=== PATIENT | male | born 1935 | race African-American/Black ===

== ENCOUNTER 2017-02-02 11:35 | Inpatient (IN) | payer MEDICARE, MEDICAID ==
[~2017-02-02] VITALS: Ht 175.3 cm; Wt 93.0 kg
[~2017-02-02 11:35] MED LIST: ACET-3161 PO; ALBU6.7H IH; FAMO-135; IBUP100T53; PIOG30TA10 PO; POTA10TA15 PO; PYRI60TA10 PO; RAMI2.5C10 PO; SITA1TAB4 PO; TAMS-11 PO; ZOLP10TA6 PO; [UNRECOGNIZED DRUG - CODE]
[2017-02-02] MEDS ORDERED: SODIUM CHLORIDE 0.9% 1,000 ML IV ONE (14:25)
[2017-02-02] MEDS ORDERED: ONDANSETRON HCL 4MG/2ML VIAL IV STA (14:25)
[2017-02-02] MEDS ORDERED: PYRIDOSTIGMINE BROMIDE 60MG TABLET PO ONE (14:30)
[2017-02-02 15:00] LABS: BASOPHILS % 0.8 % (0.0-2.0); EOSINOPHILS % 1.6 % (0.0-5.0); HEMOGLOBIN. 12.5 g/dL (14.0-18.0); LYMPHOCYTES % 24.6 % (20.0-50.0); MEAN CORPUSCULAR HEMOGLOBIN 29.4 pg (28.0-32.0); MEAN CORPUSCULAR VOLUME 88.9 fL (80.0-94.0); MEAN PLATELET VOLUME 7.9 fl (7.4-10.4); MONOCYTES % 14.3 % (2.0-8.0); NEUTROPHILS % 58.7 % (40.0-76.0); PLATELET 138 x1000/uL (130-400); RED BLOOD CELL COUNT 4.27 mill/uL (4.7-6.1)
[2017-02-02 15:06] LABS: INR 1.1; PROTHROMBIN TIME 11.3 sec (9.4-11.6)
[2017-02-02 15:15] LABS: CARBON DIOXIDE 28 mEq/L (21-32); CHLORIDE 106 mEq/L (98-107); TROPONIN I 0.04 ng/mL (0.00-0.04)
[2017-02-02] MEDS ORDERED: LEVOFLOXACIN 750MG PREMIX 150 ML IV ONE (16:15)
[2017-02-02] MEDS ORDERED: METRONIDAZOLE 500 MG PREMIX 100 ML IV ONE (16:15)
[2017-02-02 19:42] LABS: CLARITY URINE CLEAR (CLEAR); COLOR URINE DARK YELLOW (YELLOW); GLUCOSE URINE NEGATIVE (NEGATIVE); KETONES URINE 1+ (NEGATIVE); LEUKOCYTE ESTERASE URINE TRACE (NEGATIVE); NITRITE URINE NEGATIVE (NEGATIVE); OCCULT BLOOD URINE NEGATIVE (NEGATIVE); PROTEIN URINE TRACE (NEGATIVE); SPECIFIC GRAVITY URINE 1.025 (1.005-1.030)
[2017-02-03] VITALS: BP 151/69
[2017-02-03] MEDS ORDERED: MAGNESIUM/ALUMINUM HYDROXIDE/SIMETHICONE 30ML UDC PO PRN (00:45)
[2017-02-03] MEDS ORDERED: DIPHENHYDRAMINE 50MG/ML VIAL IV PRN (00:45)
[2017-02-03] MEDS ORDERED: DEXTROSE 50% WATER 50ML SYRINGE IV PRN (00:45)
[2017-02-03] MEDS ORDERED: ONDANSETRON HCL 4MG/2ML VIAL IV PRN (00:45)
[2017-02-03] MEDS ORDERED: IPRATROPIUM/ALBUTEROL 0.5-3(2.5)MG/3ML NEB INH PRN (00:45)
[2017-02-03] MEDS ORDERED: ACETAMINOPHEN 325MG TABLET PO PRN (00:45)
[2017-02-03] MEDS ORDERED: GUAIFENESIN 200MG/10ML SUGAR FREE UDC PO PRN (00:45)
[2017-02-03] MEDS ORDERED: CLONIDINE 0.1MG TABLET PO PRN (00:45)
[2017-02-03] MEDS ORDERED: DEXT 5%/0.45% NACL 1000ML 1,000 ML IV SCH (01:30)
[2017-02-03 04:00] VITALS: BP 129/45
[2017-02-03] MEDS: BLOOD SUGAR DIAGNOSTIC STRIP TEST SCH ×4 (07:34→21:43)
[2017-02-03] MEDS: INSULIN LISPRO 100 UNITS/ML SUBCUT SCH ×4 (07:34→21:00)
[2017-02-03 08:24] VITALS: BP 144/61
[2017-02-03] MEDS: PYRIDOSTIGMINE BROMIDE 60MG TABLET PO SCH ×4 (09:18→21:43)
[2017-02-03] MEDS: ENOXAPARIN 40MG/0.4ML SYR SUBCUT SCH (09:18)
[2017-02-03] MEDS: FAMOTIDINE 20MG/2ML VIAL IV SCH ×2 (09:18→21:43)
[2017-02-03] MEDS: PIOGLITAZONE 30MG TABLET PO SCH (09:19)
[2017-02-03] MEDS: TAMSULOSIN HCL 0.4MG SR CAPSULE PO SCH (09:19)
[2017-02-03 13:10] VITALS: BP 150/72
[2017-02-03 17:24] VITALS: BP 130/70
[2017-02-03] MEDS: SODIUM CHLORIDE 0.9% 1,000 ML IV SCH (18:50)
[2017-02-03 20:00] VITALS: BP 103/70
[2017-02-04] VITALS: BP 105/68
[2017-02-04 04:00] VITALS: BP 130/74
[2017-02-04 07:17] LABS: CARBON DIOXIDE 26 mEq/L (21-32); CHLORIDE 106 mEq/L (98-107)
[2017-02-04 07:27] LABS: HEMATOCRIT. 36.4 % (42.0-52.0); HEMOGLOBIN. 12.3 g/dL (14.0-18.0); MEAN CORPUSCULAR HEMOGLOBIN 29.5 pg (28.0-32.0); MEAN CORPUSCULAR VOLUME 87.4 fL (80.0-94.0); MEAN PLATELET VOLUME 8.6 fl (7.4-10.4); PLATELET 133 x1000/uL (130-400); RED BLOOD CELL COUNT 4.17 mill/uL (4.7-6.1); RED CELL DISTRIBUTION WIDTH 14.6 % (11.6-14.6)
[2017-02-04 08:00] VITALS: BP 133/67
[2017-02-04] MEDS: BLOOD SUGAR DIAGNOSTIC STRIP TEST SCH ×2 (08:05→12:48)
[2017-02-04] MEDS: INSULIN LISPRO 100 UNITS/ML SUBCUT SCH ×2 (08:10→12:32)
[2017-02-04] MEDS: PYRIDOSTIGMINE BROMIDE 60MG TABLET PO SCH ×2 (08:35→12:29)
[2017-02-04] MEDS: SODIUM CHLORIDE 0.9% 1,000 ML IV SCH (08:35)
[2017-02-04] MEDS: PIOGLITAZONE 30MG TABLET PO SCH (08:35)
[2017-02-04] MEDS: ENOXAPARIN 40MG/0.4ML SYR SUBCUT SCH (08:36)
[2017-02-04] MEDS: FAMOTIDINE 20MG/2ML VIAL IV SCH (08:36)
[2017-02-04] MEDS: TAMSULOSIN HCL 0.4MG SR CAPSULE PO SCH (08:36)
[2017-02-04 12:00] VITALS: BP 118/61
[2017-02-04 16:54] LABS: PLATELET ESTIMATE NORMAL
== END 2017-02-04 14:00 | disposition home or self-care (01) | DRG 438 ==
LOC: ER 15:01 → EDBEDREQ 16:27 → EDBEDREQTM 16:27 → ENRESERV 22:13 → 7WST 02-03 00:10
PROVIDERS: ADMIT Internal Medicine; ATTEND Internal Medicine
DX: K85.90 Acute pancreatitis without necrosis or infection, unspecified (principal); G93.41 Metabolic encephalopathy; G70.01 Myasthenia gravis with (acute) exacerbation; E11.9 Type 2 diabetes mellitus without complications; J44.9 Chronic obstructive pulmonary disease, unspecified; K52.9 Noninfective gastroenteritis and colitis, unspecified; E78.00 Pure hypercholesterolemia, unspecified; E78.5 Hyperlipidemia, unspecified; I10 Essential (primary) hypertension; E66.9 Obesity, unspecified; T50.995A Adverse effect of other drugs, medicaments and biological substances, initial encounter; Z79.84 Long term (current) use of oral hypoglycemic drugs; Z82.49 Family history of ischemic heart disease and other diseases of the circulatory system; Z83.3 Family history of diabetes mellitus; Z88.0 Allergy status to penicillin; Z90.49 Acquired absence of other specified parts of digestive tract; Z79.899 Other long term (current) drug therapy; Z98.42 Cataract extraction status, left eye; Z98.41 Cataract extraction status, right eye; Z68.30 Body mass index [BMI] 30.0-30.9, adult
CPT/HCPCS: 36415; 71010; 74176; 80048; 80053; 81001; 82962; 83605; 83690; 83735; 83880; 84484; 85025; 85610; 87040; 87086; 93005; 96361; 96365; 96366; 96375; 99285; J1650; J1815; J1956; J2405; J3490; J7030

== ENCOUNTER 2018-11-15 18:48 | Inpatient (IN) | payer MEDICARE, MEDICAID ==
[~2018-11-15] VITALS: Ht 175.3 cm; Wt 105.7 kg
[~2018-11-15 18:48] MED LIST changes: -ACET-3161 PO; -ALBU6.7H IH; +ATOR20TA PO; +AZAT50TA24 PO; -FAMO-135; -IBUP100T53; +LISI10TA5 PO; +OMEP40CA34 PO; -POTA10TA15 PO; -SITA1TAB4 PO; -ZOLP10TA6 PO; -[UNRECOGNIZED DRUG - CODE]
[2018-11-15] MEDS ORDERED: SODIUM CHLORIDE 0.9% 1,000 ML IV ONE (22:11)
[2018-11-15] MEDS ORDERED: ONDANSETRON HCL 4MG/2ML INJ IV STA (22:11)
[2018-11-15 22:41] LABS: BASOPHILS % 0.8 % (0.0-2.0); EOSINOPHILS % 0.3 % (0.0-5.0); HEMATOCRIT. 38.7 % (42.0-52.0); HEMOGLOBIN. 12.6 g/dL (14.0-18.0); LYMPHOCYTES % 11.6 % (20.0-50.0); MEAN CORPUSCULAR HEMOGLOBIN 27.8 pg (28.0-32.0); MEAN CORPUSCULAR VOLUME 85.2 fL (80.0-94.0); MONOCYTES % 6.3 % (2.0-8.0); PLATELET 151 x1000/uL (130-400); RED BLOOD CELL COUNT 4.54 mill/uL (4.7-6.1); RED CELL DISTRIBUTION WIDTH 16.8 % (11.6-14.6)
[2018-11-15 22:44] LABS: CHLORIDE 105 mEq/L (98-107)
[2018-11-15 22:46] LABS: CLARITY URINE TURBID (CLEAR); COLOR URINE YELLOW (YELLOW); KETONES URINE 1+ (NEGATIVE); LEUKOCYTE ESTERASE URINE NEGATIVE (NEGATIVE); NITRITE URINE NEGATIVE (NEGATIVE); OCCULT BLOOD URINE NEGATIVE (NEGATIVE); PH URINE 7.5 (4.5-8.0); PROTEIN URINE 1+ (NEGATIVE); SPECIFIC GRAVITY URINE 1.029 (1.005-1.030)
[2018-11-15 22:48] LABS: INR 1.1; PROTHROMBIN TIME 11.1 sec (9.6-11.0)
[2018-11-15] MEDS ORDERED: ASPIRIN 81MG TABLET PO ONE (23:45)
[2018-11-16] MEDS ORDERED: SODIUM CHLORIDE 0.9% 1,000 ML IV SCH (02:42)
[2018-11-16] MEDS ORDERED: ACETAMINOPHEN 325MG TABLET PO PRN (02:45)
[2018-11-16] MEDS ORDERED: MAGNESIUM/ALUMINUM HYDROXIDE/SIMETHICONE 30ML UDC PO PRN (02:45)
[2018-11-16] MEDS ORDERED: IPRATROPIUM/ALBUTEROL 0.5-3(2.5)MG/3ML NEB INH PRN (02:45)
[2018-11-16] MEDS ORDERED: DIPHENHYDRAMINE 50MG/ML VIAL IV PRN (02:45)
[2018-11-16] MEDS ORDERED: CLONIDINE 0.1MG TABLET PO PRN (02:45)
[2018-11-16] MEDS ORDERED: ONDANSETRON HCL 4MG/2ML INJ IV PRN (02:45)
[2018-11-16] MEDS ORDERED: DEXTROSE 50% WATER 50ML SYRINGE IV PRN ×2 (02:45→05:15)
[2018-11-16] MEDS ORDERED: GUAIFENESIN 200MG/10ML SUGAR FREE UDC PO PRN (02:45)
[2018-11-16] MEDS ORDERED: ZOLP5TAB2 PO (05:42)
[2018-11-16 05:44] VITALS: BP 140/62
[2018-11-16 05:47] VITALS: BP 140/62
[2018-11-16] MEDS: BLOOD SUGAR DIAGNOSTIC STRIP TEST SCH ×4 (07:17→21:53)
[2018-11-16] MEDS ORDERED: BLOOD SUGAR DIAGNOSTIC STRIP TEST SCH (07:40)
[2018-11-16 08:00] VITALS: BP 118/58
[2018-11-16] MEDS ORDERED: INSULIN LISPRO 100 UNITS/ML SUBCUT SCH (08:10)
[2018-11-16] MEDS: INSULIN LISPRO 100 UNITS/ML SUBCUT SCH ×4 (08:26→21:00)
[2018-11-16] MEDS ORDERED: FAMOTIDINE 20MG/2ML VIAL IV SCH (09:00)
[2018-11-16] MEDS: INSULIN GLARGINE UD 100 UNITS/ML SYR SUBCUT SCH (10:43)
[2018-11-16 12:00] VITALS: BP 137/64
[2018-11-16 16:00] VITALS: BP 140/60
[2018-11-16] MEDS: METOCLOPRAMIDE HCL 10MG/2ML VIAL IV SCH ×2 (18:30→23:58)
[2018-11-16 20:00] VITALS: BP 136/55
[2018-11-16] MEDS: PYRIDOSTIGMINE BROMIDE 60MG TABLET PO SCH (21:56)
[2018-11-17] VITALS: BP 136/56
[2018-11-17 04:00] VITALS: BP 126/62
[2018-11-17] MEDS: PYRIDOSTIGMINE BROMIDE 60MG TABLET PO SCH ×3 (05:21→22:17)
[2018-11-17] MEDS: METOCLOPRAMIDE HCL 10MG/2ML VIAL IV SCH ×3 (05:21→17:44)
[2018-11-17] MEDS: OMEPRAZOLE 20MG CAPSULE EXTENDED RELEASE PO SCH (06:42)
[2018-11-17] MEDS: BLOOD SUGAR DIAGNOSTIC STRIP TEST SCH ×4 (06:47→21:00)
[2018-11-17 07:21] LABS: BASOPHILS % 0.5 % (0.0-2.0); EOSINOPHILS % 1.9 % (0.0-5.0); HEMATOCRIT. 35.2 % (42.0-52.0); HEMOGLOBIN. 11.5 g/dL (14.0-18.0); MEAN CORPUSCULAR HEMOGLOBIN 27.8 pg (28.0-32.0); MEAN CORPUSCULAR VOLUME 84.9 fL (80.0-94.0); NEUTROPHILS % 64.6 % (40.0-76.0); PLATELET 133 x1000/uL (130-400); RED BLOOD CELL COUNT 4.14 mill/uL (4.7-6.1); RED CELL DISTRIBUTION WIDTH 16.6 % (11.6-14.6)
[2018-11-17 07:33] LABS: CHLORIDE 107 mEq/L (98-107)
[2018-11-17 08:00] VITALS: BP 149/86
[2018-11-17] MEDS: INSULIN LISPRO 100 UNITS/ML SUBCUT SCH ×4 (08:18→23:40)
[2018-11-17] MEDS: INSULIN GLARGINE UD 100 UNITS/ML SYR SUBCUT SCH (10:41)
[2018-11-17] MEDS ORDERED: PROPOFOL 200MG/20ML VIAL IV ONE (12:06)
[2018-11-17] MEDS ORDERED: MIDAZOLAM HCL 5 MG/5 ML VIAL ONE (12:06)
[2018-11-17 15:30] VITALS: BP 124/51
[2018-11-17] MEDS: SUCRALFATE 1 G/10 ML UDC PO SCH ×2 (17:45→22:17)
[2018-11-17 20:00] VITALS: BP 127/57
[2018-11-18] VITALS: BP 127/59
[2018-11-18] MEDS: METOCLOPRAMIDE HCL 10MG/2ML VIAL IV SCH ×3 (00:50→13:06)
[2018-11-18 04:00] VITALS: BP 114/53
[2018-11-18] MEDS: PYRIDOSTIGMINE BROMIDE 60MG TABLET PO SCH ×2 (06:20→13:06)
[2018-11-18 08:00] VITALS: BP 141/60
[2018-11-18] MEDS: SUCRALFATE 1 G/10 ML UDC PO SCH ×2 (08:06→13:06)
[2018-11-18] MEDS: OMEPRAZOLE 20MG CAPSULE EXTENDED RELEASE PO SCH (08:06)
[2018-11-18] MEDS: BLOOD SUGAR DIAGNOSTIC STRIP TEST SCH ×2 (08:07→11:44)
[2018-11-18] MEDS: INSULIN LISPRO 100 UNITS/ML SUBCUT SCH ×2 (08:07→13:07)
[2018-11-18 10:40] LABS: CHLORIDE 105 mEq/L (98-107)
[2018-11-18 10:42] LABS: EOSINOPHILS % 1.8 % (0.0-5.0); HEMATOCRIT. 35.7 % (42.0-52.0); HEMOGLOBIN. 11.5 g/dL (14.0-18.0); LYMPHOCYTES % 23.4 % (20.0-50.0); MEAN CORPUSCULAR HEMOGLOBIN 27.4 pg (28.0-32.0); MEAN CORPUSCULAR VOLUME 84.7 fL (80.0-94.0); MEAN PLATELET VOLUME 8.5 fl (7.4-10.4); NEUTROPHILS % 64.8 % (40.0-76.0); PLATELET 135 x1000/uL (130-400); RED BLOOD CELL COUNT 4.21 mill/uL (4.7-6.1); RED CELL DISTRIBUTION WIDTH 16.5 % (11.6-14.6)
[2018-11-18 12:00] VITALS: BP 121/84
[2018-11-18] MEDS ORDERED: INSULIN GLARGINE UD 100 UNITS/ML SYR SUBCUT SCH (12:30)
[2018-11-18 14:46] VITALS: BP 120/80
== END 2018-11-18 16:00 | disposition home or self-care (01) | DRG 382 ==
LOC: ER 18:48 → 7WST 11-16 01:19 → EDBEDREQTM 11-16 01:21 → EDBEDREQ 11-16 01:21 → ENRESERV 11-16 02:54
PROVIDERS: ADMIT Internal Medicine; ATTEND Internal Medicine
PROC: 0DB68ZX Excision of Stomach, Via Natural or Artificial Opening Endoscopic, Diagnostic (ICD-10-PCS; principal; 2018-11-18)
DX: K22.10 Ulcer of esophagus without bleeding (principal); R07.89 Other chest pain; K21.0 Gastro-esophageal reflux disease with esophagitis; K31.84 Gastroparesis; K22.4 Dyskinesia of esophagus; J44.9 Chronic obstructive pulmonary disease, unspecified; I45.81 Long QT syndrome; I11.9 Hypertensive heart disease without heart failure; I27.20 Pulmonary hypertension, unspecified; G70.00 Myasthenia gravis without (acute) exacerbation; K57.90 Diverticulosis of intestine, part unspecified, without perforation or abscess without bleeding; E11.43 Type 2 diabetes mellitus with diabetic autonomic (poly)neuropathy; K76.0 Fatty (change of) liver, not elsewhere classified; K86.89 Other specified diseases of pancreas; E66.09 Other obesity due to excess calories; E78.00 Pure hypercholesterolemia, unspecified; E78.5 Hyperlipidemia, unspecified; H91.10 Presbycusis, unspecified ear; I49.1 Atrial premature depolarization; E83.42 Hypomagnesemia; K22.5 Diverticulum of esophagus, acquired; K29.70 Gastritis, unspecified, without bleeding; E87.6 Hypokalemia; K29.80 Duodenitis without bleeding; Z82.49 Family history of ischemic heart disease and other diseases of the circulatory system; Z83.3 Family history of diabetes mellitus; Z87.19 Personal history of other diseases of the digestive system; Z87.891 Personal history of nicotine dependence; Z90.49 Acquired absence of other specified parts of digestive tract; Z98.41 Cataract extraction status, right eye; Z98.42 Cataract extraction status, left eye; Z88.0 Allergy status to penicillin; Z79.899 Other long term (current) drug therapy; Z68.34 Body mass index [BMI] 34.0-34.9, adult; Z79.82 Long term (current) use of aspirin
CPT/HCPCS: 36415; 71045; 74176; 80048; 82962; 84484; 88305; 88312; 88313; 93005; 93970; 96374; 99285; J1815; J2250; J2405; J2704; J2765; J3490; J7030

== ENCOUNTER 2018-12-21 08:38 | Emergency (ER) | payer MEDICARE, MEDICAID, OTHER ==
[~2018-12-21] VITALS: Ht 175.3 cm; Wt 103.0 kg
[~2018-12-21 08:38] MED LIST changes: +ZOLP5TAB2 PO
[2018-12-21] MEDS ORDERED: ACETAMINOPHEN 325MG TABLET PO ONE (09:15)
[2018-12-21 11:04] VITALS: BP 133/64
== END 2018-12-21 11:07 | disposition home or self-care (01) ==
LOC: ER 08:38
DX: S62.346A Nondisplaced fracture of base of fifth metacarpal bone, right hand, initial encounter for closed fracture (principal); E11.9 Type 2 diabetes mellitus without complications; Z88.0 Allergy status to penicillin; Z90.49 Acquired absence of other specified parts of digestive tract; W01.0XXA Fall on same level from slipping, tripping and stumbling without subsequent striking against object, initial encounter; Y93.89 Activity, other specified; Y92.512 Supermarket, store or market as the place of occurrence of the external cause
CPT/HCPCS: 29125; 73110; 73130; 99283

== ENCOUNTER → 2019-01-02 | Outpatient (CLI) | payer MEDICARE, MEDICAID, OTHER | END | disposition home or self-care (01) | LOC: LAB 11:03 | PROVIDERS: ATTEND Internal Medicine Endocrinology, Diabetes & Metabolism | DX: S62.316D Displaced fracture of base of fifth metacarpal bone, right hand, subsequent encounter for fracture with routine healing (principal); M19.041 Primary osteoarthritis, right hand; M89.341 Hypertrophy of bone, right hand; X58.XXXD Exposure to other specified factors, subsequent encounter | CPT/HCPCS: 73130; 73140 ==

== ENCOUNTER 2019-05-11 13:27 | Emergency (ER) | payer MEDICARE, MEDICAID, OTHER ==
[~2019-05-11] VITALS: Ht 175.3 cm; Wt 104.0 kg
[2019-05-11] MEDS ORDERED: ONDANSETRON HCL 4MG/2ML INJ IV STA (14:53)
[2019-05-11 15:19] LABS: EOSINOPHILS % 4.1 % (0.0-5.0); HEMATOCRIT. 34.4 % (42.0-52.0); HEMOGLOBIN. 10.9 g/dL (14.0-18.0); LYMPHOCYTES % 24.5 % (20.0-50.0); MEAN CORPUSCULAR HEMOGLOBIN 27.8 pg (28.0-32.0); MEAN CORPUSCULAR VOLUME 87.9 fL (80.0-94.0); MEAN PLATELET VOLUME 8.7 fl (7.4-10.4); MONOCYTES % 8.3 % (2.0-8.0); NEUTROPHILS % 62.1 % (40.0-76.0); PLATELET 126 x1000/uL (130-400); RED BLOOD CELL COUNT 3.92 mill/uL (4.7-6.1)
[2019-05-11 15:21] LABS: CHLORIDE 110 mEq/L (98-107)
[2019-05-11 15:23] LABS: INR 1.1; PARTIAL THROMBOPLASTIN TIME 22.4 sec (23.4-31.0); PROTHROMBIN TIME 11.3 sec (9.6-11.0)
[2019-05-11 15:25] LABS: ETHANOL BLOOD < 10 mg/dL
[2019-05-11 15:30] LABS: CREATINE KINASE 101 IU/L (39-308)
[2019-05-11 15:32] LABS: CREATINE KINASE MB FRACTION < 1.0 ng/mL (0.5-3.6)
[2019-05-11 16:25] LABS: *AMPHETAMINES SCREEN URINE NEGATIVE (NEGATIVE); *BARBITURATES SCREEN URINE NEGATIVE (NEGATIVE); *COCAINE SCREEN URINE NEGATIVE (NEGATIVE)
[2019-05-11 16:26] LABS: *BENZODIAZEPINES SCREEN URINE NEGATIVE (NEGATIVE); CANNABINOID URINE SCREEN NEGATIVE (NEGATIVE); METHADONE URINE SCREEN NEGATIVE (NEGATIVE); OPIATES URINE SCREEN NEGATIVE (NEGATIVE); PHENCYCLIDINE URINE SCREEN NEGATIVE (NEGATIVE)
[2019-05-11 18:37] VITALS: BP 148/70
== END 2019-05-11 18:45 | disposition home or self-care (01) ==
LOC: ER 13:27 → CANBEDREQ 19:35
DX: K52.9 Noninfective gastroenteritis and colitis, unspecified (principal); E11.9 Type 2 diabetes mellitus without complications; Z88.0 Allergy status to penicillin; Z79.899 Other long term (current) drug therapy; Z90.49 Acquired absence of other specified parts of digestive tract
CPT/HCPCS: 36415; 71045; 74176; 80053; 80305; 80320; 82140; 82550; 82553; 83690; 83880; 84443; 84484; 85025; 85610; 85730; 93005; 96374; 99284; J2405; G0480

== ENCOUNTER 2019-05-16 10:06 | Inpatient (IN) | payer MEDICARE, MEDICAID, OTHER ==
[~2019-05-16] VITALS: Ht 175.3 cm; Wt 106.6 kg
[2019-05-16] MEDS ORDERED: ONDANSETRON HCL 4MG/2ML INJ IV STA (11:30)
[2019-05-16] MEDS ORDERED: SODIUM CHLORIDE 0.9% 1,000 ML IV ONE (11:30)
[2019-05-16 12:28] LABS: BASOPHILS % 0.6 % (0.0-2.0); HEMATOCRIT. 36.2 % (42.0-52.0); HEMOGLOBIN. 11.6 g/dL (14.0-18.0); LYMPHOCYTES % 15.8 % (20.0-50.0); MEAN CORPUSCULAR HEMOGLOBIN 27.6 pg (28.0-32.0); MEAN CORPUSCULAR VOLUME 85.9 fL (80.0-94.0); MEAN PLATELET VOLUME 8.8 fl (7.4-10.4); MONOCYTES % 8.7 % (2.0-8.0); NEUTROPHILS % 73.9 % (40.0-76.0); PLATELET 144 x1000/uL (130-400); RED BLOOD CELL COUNT 4.21 mill/uL (4.7-6.1); RED CELL DISTRIBUTION WIDTH 16.6 % (11.6-14.6)
[2019-05-16 12:36] LABS: CHLORIDE 109 mEq/L (98-107)
[2019-05-16] MEDS ORDERED: LEVOFLOXACIN 750MG PREMIX 150 ML IV ONE (14:00)
[2019-05-16] MEDS ORDERED: SODIUM CHLORIDE 0.9% 1000ML BAG (SEPSIS BOLUS) IV ONE (14:00)
[2019-05-16] MEDS ORDERED: SODIUM CHLORIDE 0.9% 1,000 ML IV SCH ×2 (15:09→20:03)
[2019-05-16] MEDS ORDERED: CLONIDINE 0.1MG TABLET PO PRN (15:15)
[2019-05-16] MEDS ORDERED: ACETAMINOPHEN 325MG TABLET PO PRN (15:15)
[2019-05-16] MEDS ORDERED: LORAZEPAM 2MG/ML CPJ IV PRN (15:15)
[2019-05-16] MEDS ORDERED: DEXTROSE 50% WATER 50ML SYRINGE IV PRN (15:15)
[2019-05-16] MEDS ORDERED: DIPHENHYDRAMINE 50MG/ML VIAL IV PRN (15:15)
[2019-05-16] MEDS ORDERED: HYDRALAZINE 20MG/ML VIAL IV PRN (15:15)
[2019-05-16] MEDS ORDERED: ONDANSETRON HCL 4MG/2ML INJ IV PRN (15:15)
[2019-05-16] MEDS ORDERED: MAGNESIUM/ALUMINUM HYDROXIDE/SIMETHICONE 30ML UDC PO PRN (15:15)
[2019-05-16 16:00] VITALS: BP 127/61
[2019-05-16 16:19] LABS: CLARITY URINE TURBID (CLEAR); COLOR URINE YELLOW (YELLOW); KETONES URINE TRACE (NEGATIVE); LEUKOCYTE ESTERASE URINE TRACE (NEGATIVE); NITRITE URINE NEGATIVE (NEGATIVE); OCCULT BLOOD URINE NEGATIVE (NEGATIVE); PH URINE >=9.0 (4.5-8.0); PROTEIN URINE TRACE (NEGATIVE)
[2019-05-16] MEDS: PANTOPRAZOLE SODIUM 40 MG/VIAL IV SCH (17:56)
[2019-05-16] MEDS: METOCLOPRAMIDE HCL 10MG/2ML VIAL IV SCH (17:56)
[2019-05-16] MEDS: SUCRALFATE 1 G/10 ML UDC PO SCH ×2 (17:56→21:00)
[2019-05-16] MEDS: INSULIN LISPRO 100 UNITS/ML SUBCUT SCH ×2 (17:57→21:01)
[2019-05-16] MEDS ORDERED: BLOOD SUGAR DIAGNOSTIC STRIP TEST SCH (18:00)
[2019-05-16 18:29] VITALS: BP 127/61
[2019-05-16 18:30] VITALS: BP 127/61
[2019-05-16 20:00] VITALS: BP 118/62
[2019-05-16] MEDS ORDERED: BISACODYL 10MG SUPP PR PRN (20:15)
[2019-05-16] MEDS: DOCUSATE SODIUM 100MG CAPSULE PO SCH (21:00)
[2019-05-16] MEDS: BLOOD SUGAR DIAGNOSTIC STRIP TEST SCH (21:01)
[2019-05-17] VITALS: BP 120/76
[2019-05-17] MEDS: METOCLOPRAMIDE HCL 10MG/2ML VIAL IV SCH ×4 (00:51→17:55)
[2019-05-17] MEDS: BLOOD SUGAR DIAGNOSTIC STRIP TEST SCH ×3 (06:44→17:40)
[2019-05-17 07:34] LABS: BASOPHILS % 0.7 % (0.0-2.0); EOSINOPHILS % 3.7 % (0.0-5.0); HEMATOCRIT. 34.1 % (42.0-52.0); HEMOGLOBIN. 10.8 g/dL (14.0-18.0); LYMPHOCYTES % 26.4 % (20.0-50.0); MEAN CORPUSCULAR HEMOGLOBIN 27.7 pg (28.0-32.0); MEAN CORPUSCULAR VOLUME 87.2 fL (80.0-94.0); MEAN PLATELET VOLUME 9.1 fl (7.4-10.4); MONOCYTES % 13.2 % (2.0-8.0); PLATELET 96 x1000/uL (130-400); RED BLOOD CELL COUNT 3.91 mill/uL (4.7-6.1); RED CELL DISTRIBUTION WIDTH 16.8 % (11.6-14.6)
[2019-05-17 07:40] LABS: CHLORIDE 113 mEq/L (98-107)
[2019-05-17 07:47] LABS: PHOSPHORUS 1.6 mg/dL (2.5-4.9)
[2019-05-17 08:00] VITALS: BP 138/51
[2019-05-17] MEDS: INSULIN LISPRO 100 UNITS/ML SUBCUT SCH ×3 (08:10→17:56)
[2019-05-17] MEDS: PANTOPRAZOLE SODIUM 40 MG/VIAL IV SCH ×2 (09:22→17:55)
[2019-05-17] MEDS: DOCUSATE SODIUM 100MG CAPSULE PO SCH ×2 (09:22→17:55)
[2019-05-17] MEDS: SUCRALFATE 1 G/10 ML UDC PO SCH ×3 (09:22→17:55)
[2019-05-17] MEDS ORDERED: MAGNESIUM 2 G PREMIX 50 ML IV NR (10:00)
[2019-05-17] MEDS ORDERED: POTASSIUM PHOS,M-BASIC-D-BASIC 20 MMOL in DEXT 5% WATER 243.3333 ML IV NR (10:00)
[2019-05-17 12:00] VITALS: BP 135/55
[2019-05-17 15:46] VITALS: BP 135/55
[2019-05-17 16:00] VITALS: BP 143/57
== END 2019-05-17 20:48 | disposition home or self-care (01) | DRG 74 ==
LOC: ER 10:06 → 7WST 15:01 → ENRESERV 15:17
PROVIDERS: ADMIT Internal Medicine; ATTEND Internal Medicine
DX: E11.43 Type 2 diabetes mellitus with diabetic autonomic (poly)neuropathy (principal); E78.00 Pure hypercholesterolemia, unspecified; E83.39 Other disorders of phosphorus metabolism; E83.42 Hypomagnesemia; I10 Essential (primary) hypertension; G70.00 Myasthenia gravis without (acute) exacerbation; K31.84 Gastroparesis; K21.9 Gastro-esophageal reflux disease without esophagitis; Z82.49 Family history of ischemic heart disease and other diseases of the circulatory system; Z83.3 Family history of diabetes mellitus; Z87.19 Personal history of other diseases of the digestive system; Z88.0 Allergy status to penicillin; Z90.49 Acquired absence of other specified parts of digestive tract; Z79.899 Other long term (current) drug therapy
CPT/HCPCS: 36415; 71045; 80048; 80053; 81003; 82962; 83605; 83735; 83880; 84100; 84484; 85025; 93005; 93970; 99285; C9113; J1815; J1956; J2405; J2765; J3475; J3490; J7030; J7060

== ENCOUNTER 2019-06-30 09:36 | Inpatient (IN) | payer MEDICARE, MEDICAID ==
[~2019-06-30] VITALS: Ht 175.3 cm; Wt 103.0 kg
[~2019-06-30 09:36] MED LIST changes: +OMEP40CA12 PO; -OMEP40CA34 PO; -RAMI2.5C10 PO; +[UNRECOGNIZED DRUG - CODE] PO
[2019-06-30] MEDS ORDERED: SODIUM CHLORIDE 0.9% 1,000 ML IV ONE (13:14)
[2019-06-30] MEDS ORDERED: ONDANSETRON HCL 4MG/2ML INJ IV STA (13:14)
[2019-06-30 14:02] LABS: CHLORIDE 110 mEq/L (98-107)
[2019-06-30 14:05] LABS: BASOPHILS % 0.5 % (0.0-2.0); HEMATOCRIT. 38.6 % (42.0-52.0); HEMOGLOBIN. 12.1 g/dL (14.0-18.0); LYMPHOCYTES % 7.9 % (20.0-50.0); MEAN PLATELET VOLUME 9.9 fl (7.4-10.4); MONOCYTES % 4.3 % (2.0-8.0); NEUTROPHILS % 87.3 % (40.0-76.0); PLATELET 167 x1000/uL (130-400); RED BLOOD CELL COUNT 4.49 mill/uL (4.7-6.1); RED CELL DISTRIBUTION WIDTH 16.4 % (11.6-14.6)
[2019-06-30 14:10] LABS: ETHANOL BLOOD < 10 mg/dL; INR 1.1; PROTHROMBIN TIME 11.2 sec (9.6-11.0)
[2019-06-30] MEDS ORDERED: CLONIDINE 0.1MG TABLET PO PRN (16:15)
[2019-06-30] MEDS ORDERED: DEXTROSE 50% WATER 50ML SYRINGE IV PRN (16:15)
[2019-06-30] MEDS ORDERED: LORAZEPAM 2MG/ML CPJ IV PRN (16:15)
[2019-06-30] MEDS ORDERED: DIPHENHYDRAMINE 50MG/ML VIAL IV PRN (16:15)
[2019-06-30 16:40] LABS: PHOSPHORUS 2.1 mg/dL (2.5-4.9)
[2019-06-30 18:20] LABS: CLARITY URINE CLEAR (CLEAR); COLOR URINE YELLOW (YELLOW); KETONES URINE 1+ (NEGATIVE); LEUKOCYTE ESTERASE URINE NEGATIVE (NEGATIVE); NITRITE URINE NEGATIVE (NEGATIVE); OCCULT BLOOD URINE NEGATIVE (NEGATIVE); PH URINE 6.5 (4.5-8.0); PROTEIN URINE 1+ (NEGATIVE); SPECIFIC GRAVITY URINE 1.064 (1.005-1.030)
[2019-06-30] MEDS ORDERED: HYDRALAZINE 20MG/ML VIAL IV PRN ×2 (18:30→21:00)
[2019-06-30 18:55] LABS: METHADONE URINE SCREEN NEGATIVE (NEGATIVE); OPIATES URINE SCREEN NEGATIVE (NEGATIVE); PHENCYCLIDINE URINE SCREEN NEGATIVE (NEGATIVE)
[2019-06-30 18:56] LABS: *AMPHETAMINES SCREEN URINE NEGATIVE (NEGATIVE); *BARBITURATES SCREEN URINE NEGATIVE (NEGATIVE); *BENZODIAZEPINES SCREEN URINE NEGATIVE (NEGATIVE); *COCAINE SCREEN URINE NEGATIVE (NEGATIVE); CANNABINOID URINE SCREEN NEGATIVE (NEGATIVE)
[2019-06-30] MEDS ORDERED: PANTOPRAZOLE SODIUM 40 MG/VIAL IV NR (19:15)
[2019-06-30] MEDS ORDERED: SUCRALFATE 1 G/10 ML UDC PO NR (19:15)
[2019-06-30] MEDS: INSULIN LISPRO 100 UNITS/ML SUBCUT SCH ×2 (20:39→21:00)
[2019-06-30] MEDS: BLOOD SUGAR DIAGNOSTIC STRIP TEST SCH (21:00)
[2019-06-30 21:31] VITALS: BP 159/78
[2019-06-30] MEDS: SODIUM CHLORIDE 0.9% 1,000 ML IV SCH (22:30)
[2019-06-30] MEDS ORDERED: IOHEXOL-300 100 ML BOTTLE ONE (23:33)
[2019-07-01] VITALS: BP 150/69
[2019-07-01] MEDS: SUCRALFATE 1 G/10 ML UDC PO SCH ×5 (00:03→21:15)
[2019-07-01] MEDS: ONDANSETRON HCL 4MG/2ML INJ IV PRN (00:15)
[2019-07-01] MEDS: MORPHINE SULFATE 2 MG/ML CPJ (NOT FOR IM USE) IV PRN (02:39)
[2019-07-01 04:00] VITALS: BP 155/77
[2019-07-01] MEDS: BLOOD SUGAR DIAGNOSTIC STRIP TEST SCH ×4 (06:29→21:16)
[2019-07-01] MEDS: INSULIN LISPRO 100 UNITS/ML SUBCUT SCH ×4 (06:57→21:24)
[2019-07-01] MEDS ORDERED: PNEUMOCOCCAL 23-VAL P-SAC VAC 0.5 ML IM ONE (08:00)
[2019-07-01 08:28] LABS: HEMATOCRIT. 37.4 % (42.0-52.0); MEAN CORPUSCULAR HEMOGLOBIN 27.5 pg (28.0-32.0); MEAN CORPUSCULAR VOLUME 85.6 fL (80.0-94.0); RED BLOOD CELL COUNT 4.37 mill/uL (4.7-6.1); RED CELL DISTRIBUTION WIDTH 16.3 % (11.6-14.6)
[2019-07-01 08:40] LABS: CHLORIDE 115 mEq/L (98-107)
[2019-07-01 08:49] LABS: PHOSPHORUS 2.7 mg/dL (2.5-4.9)
[2019-07-01 09:34] LABS: PLATELET 146 x1000/uL (130-400)
[2019-07-01 10:06] VITALS: BP 188/96
[2019-07-01] MEDS: PANTOPRAZOLE SODIUM 40 MG/VIAL IV SCH ×2 (10:11→21:15)
[2019-07-01] MEDS: SODIUM CHLORIDE 0.9% 1,000 ML IV SCH ×2 (11:16→21:16)
[2019-07-01 12:00] VITALS: BP 175/85
[2019-07-01 16:00] VITALS: BP 148/84
[2019-07-01 20:00] VITALS: BP 141/62
[2019-07-01] MEDS: LISINOPRIL 10MG TABLET PO SCH (21:16)
[2019-07-02] VITALS: BP 141/62
[2019-07-02 04:00] VITALS: BP 138/49
[2019-07-02] MEDS: SUCRALFATE 1 G/10 ML UDC PO SCH ×4 (06:09→20:51)
[2019-07-02] MEDS: BLOOD SUGAR DIAGNOSTIC STRIP TEST SCH ×4 (06:09→20:50)
[2019-07-02] MEDS: INSULIN LISPRO 100 UNITS/ML SUBCUT SCH ×4 (06:17→20:59)
[2019-07-02 08:00] VITALS: BP 127/52
[2019-07-02] MEDS: PANTOPRAZOLE SODIUM 40 MG/VIAL IV SCH (08:08)
[2019-07-02] MEDS: LISINOPRIL 10MG TABLET PO SCH ×2 (08:09→20:51)
[2019-07-02] MEDS ORDERED: DEXT 5% WATER 500 ML IV ONE (08:45)
[2019-07-02] MEDS ORDERED: MAGNESIUM 2 G PREMIX 50 ML IV SCH (09:00)
[2019-07-02 10:37] LABS: CHLORIDE 114 mEq/L (98-107)
[2019-07-02 10:39] LABS: BASOPHILS % 0.4 % (0.0-2.0); HEMATOCRIT. 34.7 % (42.0-52.0); HEMOGLOBIN. 11.1 g/dL (14.0-18.0); LYMPHOCYTES % 8.8 % (20.0-50.0); MEAN CORPUSCULAR HEMOGLOBIN 27.2 pg (28.0-32.0); MEAN CORPUSCULAR VOLUME 85.3 fL (80.0-94.0); MEAN PLATELET VOLUME 9.4 fl (7.4-10.4); NEUTROPHILS % 82.8 % (40.0-76.0); PLATELET 101 x1000/uL (130-400); RED BLOOD CELL COUNT 4.07 mill/uL (4.7-6.1); RED CELL DISTRIBUTION WIDTH 16.4 % (11.6-14.6)
[2019-07-02 10:43] LABS: PHOSPHORUS 1.7 mg/dL (2.5-4.9)
[2019-07-02 12:00] VITALS: BP 148/65
[2019-07-02] MEDS: ONDANSETRON HCL 4MG/2ML INJ IV PRN (12:25)
[2019-07-02] MEDS ORDERED: POTASSIUM CHLORIDE 20MEQ TABLET SR PO NR (14:58)
[2019-07-02 16:00] VITALS: BP 133/58
[2019-07-02] MEDS ORDERED: POTASSIUM PHOS,M-BASIC-D-BASIC 20 MMOL in DEXT 5% WATER 243.3333 ML IV NR (16:30)
[2019-07-02 20:00] VITALS: BP 132/60
[2019-07-02] MEDS: FAMOTIDINE 20MG/2ML VIAL IV SCH (20:51)
[2019-07-03] VITALS: BP 118/55
[2019-07-03 04:00] VITALS: BP 141/56
[2019-07-03] MEDS: SUCRALFATE 1 G/10 ML UDC PO SCH ×4 (06:01→21:27)
[2019-07-03] MEDS: BLOOD SUGAR DIAGNOSTIC STRIP TEST SCH ×4 (06:04→21:08)
[2019-07-03] MEDS: INSULIN LISPRO 100 UNITS/ML SUBCUT SCH ×4 (06:04→21:33)
[2019-07-03 06:38] LABS: CHLORIDE 109 mEq/L (98-107)
[2019-07-03 06:43] LABS: PHOSPHORUS 1.5 mg/dL (2.5-4.9)
[2019-07-03 08:00] VITALS: BP 139/50
[2019-07-03] MEDS: FAMOTIDINE 20MG/2ML VIAL IV SCH ×2 (08:45→21:27)
[2019-07-03] MEDS: LISINOPRIL 10MG TABLET PO SCH ×2 (08:46→21:27)
[2019-07-03] MEDS ORDERED: POTASSIUM CHLORIDE 20MEQ TABLET SR PO NR (09:00)
[2019-07-03] MEDS ORDERED: POTASSIUM PHOS,M-BASIC-D-BASIC 30 MMOL in DEXT 5% WATER 500 ML IV NR (10:00)
[2019-07-03] MEDS: MORPHINE SULFATE 2 MG/ML CPJ (NOT FOR IM USE) IV PRN (11:58)
[2019-07-03 12:00] VITALS: BP 121/58
[2019-07-03] MEDS: ACETAMINOPHEN 325MG TABLET PO PRN ×2 (15:51→21:28)
[2019-07-03 16:00] VITALS: BP 142/67
[2019-07-03] MEDS: LEVOFLOXACIN 500MG PREMIX 100 ML IV SCH (17:37)
[2019-07-03 17:44] LABS: CLARITY URINE CLEAR (CLEAR); COLOR URINE YELLOW (YELLOW); KETONES URINE NEGATIVE (NEGATIVE); LEUKOCYTE ESTERASE URINE NEGATIVE (NEGATIVE); NITRITE URINE NEGATIVE (NEGATIVE); OCCULT BLOOD URINE NEGATIVE (NEGATIVE); PROTEIN URINE TRACE (NEGATIVE); SPECIFIC GRAVITY URINE 1.027 (1.005-1.030)
[2019-07-03 20:00] VITALS: BP 132/58
[2019-07-04] VITALS: BP 140/63
[2019-07-04 04:00] VITALS: BP 134/59
[2019-07-04] MEDS: BLOOD SUGAR DIAGNOSTIC STRIP TEST SCH ×4 (06:09→20:02)
[2019-07-04] MEDS: SUCRALFATE 1 G/10 ML UDC PO SCH ×4 (06:32→21:03)
[2019-07-04] MEDS: INSULIN LISPRO 100 UNITS/ML SUBCUT SCH ×4 (06:35→21:08)
[2019-07-04 07:23] LABS: CHLORIDE 108 mEq/L (98-107)
[2019-07-04 07:30] LABS: BASOPHILS % 0.4 % (0.0-2.0); HEMATOCRIT. 31.8 % (42.0-52.0); HEMOGLOBIN. 10.2 g/dL (14.0-18.0); LYMPHOCYTES % 13.2 % (20.0-50.0); MEAN CORPUSCULAR HEMOGLOBIN 27.3 pg (28.0-32.0); MEAN CORPUSCULAR VOLUME 84.7 fL (80.0-94.0); MEAN PLATELET VOLUME 9.7 fl (7.4-10.4); MONOCYTES % 9.9 % (2.0-8.0); NEUTROPHILS % 75.5 % (40.0-76.0); PLATELET 98 x1000/uL (130-400); RED BLOOD CELL COUNT 3.75 mill/uL (4.7-6.1)
[2019-07-04 08:00] VITALS: BP 151/64
[2019-07-04] MEDS: LISINOPRIL 10MG TABLET PO SCH ×2 (08:59→21:03)
[2019-07-04] MEDS: FAMOTIDINE 20MG/2ML VIAL IV SCH ×2 (08:59→21:03)
[2019-07-04 12:00] VITALS: BP 124/55
[2019-07-04 16:00] VITALS: BP_SYST 123; BP_SYST 159; BP_DIAS 68; BP_DIAS 77
[2019-07-04] MEDS: LEVOFLOXACIN 500MG PREMIX 100 ML IV SCH (17:38)
[2019-07-04 20:00] VITALS: BP 135/57
[2019-07-05] VITALS: BP 117/53
[2019-07-05 04:00] VITALS: BP 120/58
[2019-07-05] MEDS: BLOOD SUGAR DIAGNOSTIC STRIP TEST SCH ×2 (05:49→12:25)
[2019-07-05] MEDS: SUCRALFATE 1 G/10 ML UDC PO SCH ×2 (06:16→11:06)
[2019-07-05] MEDS: INSULIN LISPRO 100 UNITS/ML SUBCUT SCH ×2 (06:20→12:26)
[2019-07-05 08:00] VITALS: BP 154/66
[2019-07-05] MEDS: FAMOTIDINE 20MG/2ML VIAL IV SCH (09:39)
[2019-07-05] MEDS: LISINOPRIL 10MG TABLET PO SCH (09:40)
[2019-07-05 12:56] VITALS: BP 142/58
[2019-07-05 14:46] VITALS: BP 142/58
[2019-07-05] MEDS ORDERED: LEVOFLOXACIN 500MG TABLET PO SCH (17:00)
== END 2019-07-05 16:25 | disposition home or self-care (01) | DRG 871 ==
LOC: ER 09:36 → 5WST 16:18 → ENRESERV 19:50 → 5WST 07-03 12:32
PROVIDERS: ADMIT Internal Medicine; ATTEND Internal Medicine
DX: A41.9 Sepsis, unspecified organism (principal); J18.9 Pneumonia, unspecified organism; E87.0 Hyperosmolality and hypernatremia; N39.0 Urinary tract infection, site not specified; E11.43 Type 2 diabetes mellitus with diabetic autonomic (poly)neuropathy; K31.84 Gastroparesis; I11.9 Hypertensive heart disease without heart failure; E11.65 Type 2 diabetes mellitus with hyperglycemia; K21.9 Gastro-esophageal reflux disease without esophagitis; E78.00 Pure hypercholesterolemia, unspecified; G70.00 Myasthenia gravis without (acute) exacerbation; K76.0 Fatty (change of) liver, not elsewhere classified; N40.0 Benign prostatic hyperplasia without lower urinary tract symptoms; E87.6 Hypokalemia; E83.39 Other disorders of phosphorus metabolism; I25.10 Atherosclerotic heart disease of native coronary artery without angina pectoris; K44.9 Diaphragmatic hernia without obstruction or gangrene; K57.90 Diverticulosis of intestine, part unspecified, without perforation or abscess without bleeding; Z82.49 Family history of ischemic heart disease and other diseases of the circulatory system; Z83.3 Family history of diabetes mellitus; Z90.49 Acquired absence of other specified parts of digestive tract; Z88.0 Allergy status to penicillin; Z79.899 Other long term (current) drug therapy
CPT/HCPCS: 36415; 71045; 74177; 80048; 80053; 80305; 80320; 81003; 82962; 83735; 84100; 85025; 93970; 96374; 97116; 97162; 99285; C9113; J0360; J1815; J1956; J2270; J2405; J3475; J3490; J7030; J7060; J7070; Q9967; G0480

== ENCOUNTER 2019-12-29 15:21 | Emergency (ER) | payer MEDICARE, MEDICAID ==
[~2019-12-29] VITALS: Ht 175.3 cm; Wt 100.0 kg
[2019-12-29 15:39] VITALS: BP 120/55
== END 2019-12-29 17:59 | disposition home or self-care (01) ==
LOC: ER 15:21
DX: U07.1 COVID-19 (principal); J06.9 Acute upper respiratory infection, unspecified; I10 Essential (primary) hypertension; E11.9 Type 2 diabetes mellitus without complications; I25.2 Old myocardial infarction; I25.10 Atherosclerotic heart disease of native coronary artery without angina pectoris; Z90.49 Acquired absence of other specified parts of digestive tract; Z88.0 Allergy status to penicillin; Z79.899 Other long term (current) drug therapy
CPT/HCPCS: 71045; 87635; 99282

== ENCOUNTER 2020-06-22 14:22 | Inpatient (IN) | payer MEDICARE, MEDICAID ==
[~2020-06-22] VITALS: Ht 177.8 cm; Wt 100.0 kg
[2020-06-22] MEDS ORDERED: ONDANSETRON HCL 4MG/2ML INJ IV STA (15:34)
[2020-06-22] MEDS ORDERED: MORPHINE SULFATE 4 MG/ML CPJ (NOT FOR IM USE) IV STA (15:34)
[2020-06-22] MEDS ORDERED: SODIUM CHLORIDE 0.9% 1,000 ML IV ONE ×2 (16:30→20:15)
[2020-06-22 18:37] LABS: BASOPHILS % 0.7 % (0.0-2.0); EOSINOPHILS % 0.1 % (0.0-5.0); HEMATOCRIT. 36.5 % (42.0-52.0); HEMOGLOBIN. 11.3 g/dL (14.0-18.0); LYMPHOCYTES % 10.5 % (20.0-50.0); MEAN CORPUSCULAR HEMOGLOBIN 25.1 pg (28.0-32.0); MEAN CORPUSCULAR VOLUME 81.1 fL (80.0-94.0); MEAN PLATELET VOLUME 9.7 fl (7.4-10.4); MONOCYTES % 4.1 % (2.0-8.0); NEUTROPHILS % 84.6 % (40.0-76.0); PLATELET 144 x1000/uL (130-400); RED BLOOD CELL COUNT 4.51 mill/uL (4.7-6.1); RED CELL DISTRIBUTION WIDTH 18.3 % (11.6-14.6)
[2020-06-22 18:45] LABS: CHLORIDE 107 mEq/L (98-107)
[2020-06-22 18:46] LABS: INR 1.1; PROTHROMBIN TIME 11.4 sec (9.6-11.0)
[2020-06-22 18:49] LABS: CLARITY URINE CLEAR (CLEAR); COLOR URINE YELLOW (YELLOW); KETONES URINE 1+ (NEGATIVE); LEUKOCYTE ESTERASE URINE TRACE (NEGATIVE); NITRITE URINE POSITIVE (NEGATIVE); OCCULT BLOOD URINE TRACE (NEGATIVE); PH URINE 6.5 (4.5-8.0); PROTEIN URINE 1+ (NEGATIVE); SPECIFIC GRAVITY URINE 1.043 (1.005-1.030)
[2020-06-22] MEDS ORDERED: CEFTRIAXONE 1 G PREMIX 50 ML IV ONE (19:45)
[2020-06-23] MEDS ORDERED: MORPHINE SULFATE 2 MG/ML CPJ (NOT FOR IM USE) IV SCH (01:45)
[2020-06-23] MEDS: ONDANSETRON HCL 4MG/2ML INJ IV PRN ×2 (02:24→11:58)
[2020-06-23] MEDS ORDERED: ENOXAPARIN 40MG/0.4ML SYR SUBCUT SCH (13:45)
[2020-06-23] MEDS: AMLODIPINE 5MG TABLET PO SCH (13:45)
[2020-06-23] MEDS ORDERED: GUAIFENESIN 200MG/10ML SUGAR FREE UDC PO PRN (13:45)
[2020-06-23] MEDS ORDERED: MAGNESIUM/ALUMINUM HYDROXIDE/SIMETHICONE 30ML UDC PO PRN (13:45)
[2020-06-23] MEDS: SODIUM CHLORIDE 0.45% 1,000 ML IV SCH ×2 (13:45→23:04)
[2020-06-23] MEDS ORDERED: DIPHENHYDRAMINE 50MG/ML VIAL IV PRN (13:45)
[2020-06-23] MEDS ORDERED: IPRATROPIUM/ALBUTEROL 0.5-3(2.5)MG/3ML NEB NEB PRN (13:45)
[2020-06-23] MEDS ORDERED: ONDANSETRON HCL 4MG/2ML INJ IV PRN (13:45)
[2020-06-23] MEDS ORDERED: NA PHOS,M-B/NA PHOS,DI-BA ENEMA 118ML PR PRN (13:45)
[2020-06-23] MEDS ORDERED: ACETAMINOPHEN 650MG SUPP PR PRN (13:45)
[2020-06-23] MEDS ORDERED: HYDRALAZINE 20MG/ML VIAL IV PRN (13:45)
[2020-06-23] MEDS ORDERED: ACETAMINOPHEN 325MG TABLET PO PRN (13:45)
[2020-06-23] MEDS ORDERED: CLONIDINE 0.1MG TABLET PO PRN (13:45)
[2020-06-23] MEDS ORDERED: DOCUSATE SODIUM 100MG CAPSULE PO PRN (13:45)
[2020-06-23] MEDS ORDERED: DEXTROSE 50% WATER 50ML SYRINGE IV PRN (13:45)
[2020-06-23] MEDS ORDERED: MORPHINE SULFATE 2 MG/ML CPJ (NOT FOR IM USE) IV PRN (14:30)
[2020-06-23] MEDS: PANTOPRAZOLE SODIUM 40 MG/VIAL IV SCH ×2 (14:35→22:34)
[2020-06-23] MEDS: LEVOFLOXACIN 500MG PREMIX 100 ML IV SCH (15:00)
[2020-06-23 15:07] LABS: BG BASE EXCESS -1.7 mmol/L (-2.0-2.0); BG CARBOXYHEMOGLOBIN 0.4 % (0.5-1.5); BG DEOXYHEMOGLOBIN 8.4 % (0.0-5.0); BG FRACTION INSPIRED OXYGEN 21; BG METHEMOGLOBIN 0.2 % (0.0-1.5); BG OXYGEN SATURATION 91.5 % (92.0-98.5); BG PCO2 44.1 mmHg (35.0-45.0); BG PH 7.353 (7.350-7.450); BG PO2 66.7 mmHg (75.0-100.0); BG SAMPLE SITE RIGHT BRACHIAL; BG TOTAL HEMOGLOBIN 11.9 g/dL (12.0-18.0); BG VENT MODE ROOM AIR
[2020-06-23 15:45] LABS: HEMATOCRIT. 35.1 % (42.0-52.0); HEMOGLOBIN. 10.7 g/dL (14.0-18.0); MEAN CORPUSCULAR VOLUME 82.1 fL (80.0-94.0); MEAN PLATELET VOLUME 9.4 fl (7.4-10.4); PLATELET 147 x1000/uL (130-400); RED BLOOD CELL COUNT 4.28 mill/uL (4.7-6.1); RED CELL DISTRIBUTION WIDTH 18.6 % (11.6-14.6)
[2020-06-23 16:00] VITALS: BP 169/81
[2020-06-23 16:00] LABS: CHLORIDE 113 mEq/L (98-107)
[2020-06-23] MEDS: BLOOD SUGAR DIAGNOSTIC STRIP TEST SCH ×2 (16:45→21:13)
[2020-06-23] MEDS: SUCRALFATE 1 G/10 ML UDC PO SCH ×2 (16:45→21:13)
[2020-06-23] MEDS: INSULIN LISPRO 100 UNITS/ML SUBCUT SCH ×2 (17:15→21:12)
[2020-06-23 17:41] LABS: PLATELET ESTIMATE NORMAL
[2020-06-23 18:00] VITALS: BP 118/90
[2020-06-23 20:00] VITALS: BP 161/79
[2020-06-24] VITALS (7 sets, daily range): BP systolic 103–151; BP diastolic 40–89
[2020-06-24] MEDS: SUCRALFATE 1 G/10 ML UDC PO SCH ×3 (04:56→20:41)
[2020-06-24] MEDS: BLOOD SUGAR DIAGNOSTIC STRIP TEST SCH ×3 (05:10→20:28)
[2020-06-24] MEDS: INSULIN LISPRO 100 UNITS/ML SUBCUT SCH ×3 (07:15→20:41)
[2020-06-24 08:55] LABS: CHLORIDE 116 mEq/L (98-107)
[2020-06-24 09:02] LABS: BASOPHILS % 0.4 % (0.0-2.0); EOSINOPHILS % 0.1 % (0.0-5.0); HEMATOCRIT. 36.7 % (42.0-52.0); HEMOGLOBIN. 11.2 g/dL (14.0-18.0); LYMPHOCYTES % 7.2 % (20.0-50.0); MEAN CORPUSCULAR HEMOGLOBIN 25.2 pg (28.0-32.0); MEAN CORPUSCULAR VOLUME 82.2 fL (80.0-94.0); MEAN PLATELET VOLUME 9.5 fl (7.4-10.4); MONOCYTES % 10.1 % (2.0-8.0); NEUTROPHILS % 82.2 % (40.0-76.0); PLATELET 121 x1000/uL (130-400); RED BLOOD CELL COUNT 4.46 mill/uL (4.7-6.1); RED CELL DISTRIBUTION WIDTH 18.7 % (11.6-14.6)
[2020-06-24 09:03] LABS: LDL CHOLESTEROL 79 mg/dL (5-100)
[2020-06-24 09:04] LABS: HDL CHOLESTEROL 52 mg/dL (40-59); T4 FREE 1.07 ng/dL (0.76-1.46)
[2020-06-24] MEDS: AMLODIPINE 5MG TABLET PO SCH (09:49)
[2020-06-24] MEDS: PANTOPRAZOLE SODIUM 40 MG/VIAL IV SCH ×2 (09:49→20:41)
[2020-06-24] MEDS: SODIUM CHLORIDE 0.45% 1,000 ML IV SCH (10:21)
[2020-06-24] MEDS: LEVOFLOXACIN 500MG PREMIX 100 ML IV SCH (15:00)
[2020-06-24] MEDS ORDERED: MIDAZOLAM HCL 5 MG/5 ML VIAL ONE (16:14)
[2020-06-24] MEDS ORDERED: FENTANYL CITRATE/PF 50MCG/ML 2ML VIAL ONE (16:14)
[2020-06-24] MEDS ORDERED: MIDAZOLAM HCL 5 MG/5 ML VIAL IV PRN (16:55)
[2020-06-25] VITALS: BP 128/52
[2020-06-25 04:00] VITALS: BP 145/75
[2020-06-25] MEDS: SUCRALFATE 1 G/10 ML UDC PO SCH ×2 (06:04→13:53)
[2020-06-25] MEDS: INSULIN LISPRO 100 UNITS/ML SUBCUT SCH ×2 (06:05→13:54)
[2020-06-25] MEDS: SODIUM CHLORIDE 0.45% 1,000 ML IV SCH ×2 (06:05→16:14)
[2020-06-25] MEDS: BLOOD SUGAR DIAGNOSTIC STRIP TEST SCH ×2 (06:09→13:40)
[2020-06-25 08:00] VITALS: BP 174/60
[2020-06-25] MEDS: PANTOPRAZOLE SODIUM 40 MG/VIAL IV SCH (08:33)
[2020-06-25] MEDS: AMLODIPINE 5MG TABLET PO SCH (08:34)
[2020-06-25 12:00] VITALS: BP 155/79
[2020-06-25 16:00] VITALS: BP 131/66
[2020-06-25] MEDS: LEVOFLOXACIN 500MG PREMIX 100 ML IV SCH (16:13)
[2020-06-25] MEDS ORDERED: CIPR250T4 MT (16:50)
[2020-06-25] MEDS ORDERED: SUCR1TAB30 MT (16:50)
[2020-06-25] MEDS ORDERED: OMEP40CA12 MT (16:50)
[2020-06-25 19:50] VITALS: BP 131/66
== END 2020-06-25 20:50 | disposition home or self-care (01) | DRG 368 ==
LOC: ER 14:42 → 5WST 19:50 → ENRESERV 06-23 09:07
PROVIDERS: ADMIT Internal Medicine; ATTEND Internal Medicine
PROC: 0DB68ZX Excision of Stomach, Via Natural or Artificial Opening Endoscopic, Diagnostic (ICD-10-PCS; principal; 2020-06-24)
DX: K21.01 Gastro-esophageal reflux disease with esophagitis, with bleeding (principal); J69.0 Pneumonitis due to inhalation of food and vomit; K29.71 Gastritis, unspecified, with bleeding; N12 Tubulo-interstitial nephritis, not specified as acute or chronic; K44.9 Diaphragmatic hernia without obstruction or gangrene; E11.43 Type 2 diabetes mellitus with diabetic autonomic (poly)neuropathy; E66.09 Other obesity due to excess calories; E78.5 Hyperlipidemia, unspecified; F03.90 Unspecified dementia, unspecified severity, without behavioral disturbance, psychotic disturbance, mood disturbance, and anxiety; G70.00 Myasthenia gravis without (acute) exacerbation; I10 Essential (primary) hypertension; I25.10 Atherosclerotic heart disease of native coronary artery without angina pectoris; J44.9 Chronic obstructive pulmonary disease, unspecified; K21.9 Gastro-esophageal reflux disease without esophagitis; K22.4 Dyskinesia of esophagus; K22.5 Diverticulum of esophagus, acquired; K31.84 Gastroparesis; K57.90 Diverticulosis of intestine, part unspecified, without perforation or abscess without bleeding; K76.0 Fatty (change of) liver, not elsewhere classified; N40.0 Benign prostatic hyperplasia without lower urinary tract symptoms; R06.03 Acute respiratory distress; Z20.822 Contact with and (suspected) exposure to COVID-19; Z79.82 Long term (current) use of aspirin; Z90.49 Acquired absence of other specified parts of digestive tract; Z79.84 Long term (current) use of oral hypoglycemic drugs; Z79.899 Other long term (current) drug therapy; Z88.0 Allergy status to penicillin; Z68.31 Body mass index [BMI] 31.0-31.9, adult
CPT/HCPCS: 36415; 36600; 71045; 74176; 80053; 80061; 81003; 82375; 82805; 82962; 83036; 83605; 84145; 84153; 84439; 84443; 84484; 85025; 86850; 86900; 87426; 88305; 88313; 93005; 93970; 97116; 97162; 97530; 99291; C9113; J0360; J0696; J1815; J1956; J2250; J2270; J2405; J3010; J7030; G0103

== ENCOUNTER 2020-11-01 12:13 | Emergency (ER) | payer MEDICARE, MEDICAID ==
[~2020-11-01] VITALS: Ht 175.3 cm; Wt 98.0 kg
[~2020-11-01 12:13] MED LIST changes: +CIPR250T4 MT; +LISI10TA26 PO; -LISI10TA5 PO; +OMEP40CA12 MT; +SUCR1TAB30 MT; -[UNRECOGNIZED DRUG - CODE] PO
[2020-11-01] MEDS ORDERED: ACETAMINOPHEN WITH CODEINE 300/30MG TABLET PO STA (13:01)
[2020-11-01 13:54] LABS: BASOPHILS % 0.9 % (0.0-2.0); EOSINOPHILS % 0.8 % (0.0-5.0); HEMATOCRIT. 36.4 % (42.0-52.0); HEMOGLOBIN. 11.9 g/dL (14.0-18.0); LYMPHOCYTES % 14.4 % (20.0-50.0); MEAN CORPUSCULAR VOLUME 88.4 fL (80.0-94.0); MEAN PLATELET VOLUME 9.5 fl (7.4-10.4); MONOCYTES % 7.1 % (2.0-8.0); NEUTROPHILS % 76.8 % (40.0-76.0); PLATELET 91 x1000/uL (130-400); RED BLOOD CELL COUNT 4.12 mill/uL (4.7-6.1); RED CELL DISTRIBUTION WIDTH 21.1 % (11.6-14.6)
[2020-11-01 14:01] LABS: CHLORIDE 103 mEq/L (98-107)
[2020-11-01] MEDS ORDERED: MELO-105 MT (17:56)
[2020-11-01 20:29] VITALS: BP 145/70
== END 2020-11-01 20:53 | disposition home or self-care (01) ==
LOC: ER 12:13
DX: M17.12 Unilateral primary osteoarthritis, left knee (principal); I25.2 Old myocardial infarction; I10 Essential (primary) hypertension; E11.65 Type 2 diabetes mellitus with hyperglycemia; W18.30XA Fall on same level, unspecified, initial encounter; Y93.89 Activity, other specified; Y92.89 Other specified places as the place of occurrence of the external cause; Y99.8 Other external cause status; Z88.0 Allergy status to penicillin; Z79.899 Other long term (current) drug therapy
CPT/HCPCS: 29505; 36415; 73560; 73700; 80053; 85025; 99285

== ENCOUNTER 2021-02-18 12:32 | Emergency (ER) | payer MEDICARE, MEDICAID ==
[~2021-02-18] VITALS: Ht 182.9 cm; Wt 86.0 kg
[~2021-02-18 12:32] MED LIST changes: +MELO-105 MT; -OMEP40CA12 MT; -OMEP40CA12 PO; +OMEP40CA20 MT; +OMEP40CA20 PO
[2021-02-18] MEDS ORDERED: METOCLOPRAMIDE HCL 10MG/2ML VIAL IV STA (12:58)
[2021-02-18 13:35] LABS: BASOPHILS % 0.4 % (0.0-2.0); EOSINOPHILS % 0.6 % (0.0-5.0); HEMATOCRIT. 43.8 % (42.0-52.0); HEMOGLOBIN. 14.5 g/dL (14.0-18.0); LYMPHOCYTES % 20.6 % (20.0-50.0); MEAN CORPUSCULAR HEMOGLOBIN 30.5 pg (28.0-32.0); MEAN CORPUSCULAR VOLUME 92.3 fL (80.0-94.0); MEAN PLATELET VOLUME 9.8 fl (7.4-10.4); MONOCYTES % 7.5 % (2.0-8.0); NEUTROPHILS % 70.9 % (40.0-76.0); PLATELET 109 x1000/uL (130-400); RED BLOOD CELL COUNT 4.75 mill/uL (4.7-6.1); RED CELL DISTRIBUTION WIDTH 14.4 % (11.6-14.6)
[2021-02-18 14:08] LABS: CHLORIDE 105 mEq/L (98-107)
[2021-02-18 14:09] LABS: INR 1.1; PROTHROMBIN TIME 12.1 sec (9.6-11.0)
[2021-02-18] MEDS ORDERED: ONDA4TAB5 PO (14:27)
[2021-02-18 16:36] VITALS: BP 159/77
== END 2021-02-18 16:40 | disposition home or self-care (01) ==
LOC: ER 12:45
DX: R11.2 Nausea with vomiting, unspecified (principal); I25.2 Old myocardial infarction; I10 Essential (primary) hypertension; E11.9 Type 2 diabetes mellitus without complications; Z88.0 Allergy status to penicillin; Z79.899 Other long term (current) drug therapy
CPT/HCPCS: 80053; 83690; 85025; 85610; 96374; 99283; J2765; 36415

== ENCOUNTER 2021-02-21 11:20 | Inpatient (IN) | payer MEDICARE, MEDICAID ==
[~2021-02-21] VITALS: Ht 175.3 cm; Wt 91.2 kg
[~2021-02-21 11:20] MED LIST changes: +ONDA4TAB5 PO
[2021-02-21 12:44] LABS: BASOPHILS % 0.8 % (0.0-2.0); EOSINOPHILS % 0.6 % (0.0-5.0); HEMATOCRIT. 42.8 % (42.0-52.0); HEMOGLOBIN. 14.2 g/dL (14.0-18.0); LYMPHOCYTES % 16.7 % (20.0-50.0); MEAN CORPUSCULAR HEMOGLOBIN 30.2 pg (28.0-32.0); MEAN CORPUSCULAR VOLUME 91.4 fL (80.0-94.0); MEAN PLATELET VOLUME 9.2 fl (7.4-10.4); MONOCYTES % 7.9 % (2.0-8.0); PLATELET 97 x1000/uL (130-400); RED BLOOD CELL COUNT 4.68 mill/uL (4.7-6.1)
[2021-02-21 12:50] LABS: CHLORIDE 100 mEq/L (98-107)
[2021-02-21 13:00] LABS: INR 1.1; PROTHROMBIN TIME 11.7 sec (9.6-11.0)
[2021-02-21 13:26] LABS: CLARITY URINE CLEAR (CLEAR); COLOR URINE YELLOW (YELLOW); KETONES URINE 1+ (NEGATIVE); LEUKOCYTE ESTERASE URINE TRACE (NEGATIVE); NITRITE URINE POSITIVE (NEGATIVE); OCCULT BLOOD URINE 2+ (NEGATIVE); PH URINE 5.5 (4.5-8.0); PROTEIN URINE 1+ (NEGATIVE)
[2021-02-21] MEDS ORDERED: CEFTRIAXONE 1 G PREMIX 50 ML IV ONE (15:45)
[2021-02-21] MEDS ORDERED: ASPIRIN 81MG TABLET PO ONE (15:45)
[2021-02-21] MEDS ORDERED: LORAZEPAM 0.5MG TABLET PO PRN (19:45)
[2021-02-21] MEDS ORDERED: ACETAMINOPHEN 325MG TABLET PO PRN ×2 (19:45)
[2021-02-21] MEDS ORDERED: CEFTRIAXONE 1 G PREMIX 50 ML IV SCH (19:45)
[2021-02-21] MEDS ORDERED: DOCUSATE SODIUM 100MG CAPSULE PO PRN (19:45)
[2021-02-21] MEDS ORDERED: CLONIDINE 0.1MG TABLET PO PRN (19:45)
[2021-02-21] MEDS ORDERED: IPRATROPIUM/ALBUTEROL 0.5-3(2.5)MG/3ML NEB HHN PRN (19:45)
[2021-02-21] MEDS ORDERED: HYDROCODONE/ACETAMINOPHEN 5/325MG TABLET PO PRN (19:45)
[2021-02-21 20:34] LABS: CREATINE KINASE MB FRACTION 1.6 ng/mL (0.5-3.6)
[2021-02-21 21:45] VITALS: BP 144/65
[2021-02-21] MEDS ORDERED: DEXTROSE 50% WATER 50ML SYRINGE IV PRN (22:30)
[2021-02-21 23:00] VITALS: BP 144/65
[2021-02-22] VITALS: BP 159/60
[2021-02-22 04:00] VITALS: BP 132/73
[2021-02-22] MEDS: BLOOD SUGAR DIAGNOSTIC STRIP TEST SCH ×4 (06:52→21:50)
[2021-02-22 08:00] VITALS: BP 138/60
[2021-02-22] MEDS: INSULIN LISPRO 100 UNITS/ML SUBCUT SCH ×4 (09:14→21:00)
[2021-02-22 12:00] VITALS: BP 133/67
[2021-02-22] MEDS: METOCLOPRAMIDE HCL 10MG/2ML VIAL IV SCH ×3 (12:35→22:50)
[2021-02-22] MEDS: ONDANSETRON HCL 4MG/2ML INJ IV PRN (12:35)
[2021-02-22] MEDS: SUCRALFATE 1 G/10 ML UDC PO SCH ×3 (12:36→21:00)
[2021-02-22] MEDS: PANTOPRAZOLE SODIUM 40 MG/VIAL IV SCH (12:36)
[2021-02-22 16:00] VITALS: BP 129/63
[2021-02-22] MEDS ORDERED: SODIUM CHLORIDE 0.45% 100 ML IV SCH (16:45)
[2021-02-22] MEDS: CEFTRIAXONE 1,000 MG in DEXTROSE 5% WATER 50 ML IV SCH (17:33)
[2021-02-22] MEDS: SODIUM CHLORIDE 0.45% 1,000 ML IV SCH (17:34)
[2021-02-22 20:35] VITALS: BP 144/63
[2021-02-23 00:35] VITALS: BP 148/83
[2021-02-23 04:00] VITALS: BP 140/87
[2021-02-23] MEDS: METOCLOPRAMIDE HCL 10MG/2ML VIAL IV SCH ×4 (06:12→23:50)
[2021-02-23] MEDS: SUCRALFATE 1 G/10 ML UDC PO SCH ×4 (06:13→20:37)
[2021-02-23] MEDS: SODIUM CHLORIDE 0.45% 1,000 ML IV SCH ×2 (06:13→19:33)
[2021-02-23] MEDS: BLOOD SUGAR DIAGNOSTIC STRIP TEST SCH ×4 (06:24→20:37)
[2021-02-23] MEDS: INSULIN LISPRO 100 UNITS/ML SUBCUT SCH ×4 (07:50→20:36)
[2021-02-23 08:00] VITALS: BP 147/73
[2021-02-23] MEDS: IPRATROPIUM/ALBUTEROL 0.5-3(2.5)MG/3ML NEB HHN SCH ×4 (08:16→21:45)
[2021-02-23 12:00] VITALS: BP 171/78
[2021-02-23] MEDS: PANTOPRAZOLE SODIUM 40 MG/VIAL IV SCH (13:50)
[2021-02-23 16:00] VITALS: BP 126/72
[2021-02-23] MEDS: CEFTRIAXONE 1,000 MG in DEXTROSE 5% WATER 50 ML IV SCH (18:14)
[2021-02-23 20:25] VITALS: BP 138/61
[2021-02-23] MEDS: INSULIN GLARGINE UD 100 UNITS/ML SYR SUBCUT SCH (21:33)
[2021-02-24] VITALS: BP 147/82
[2021-02-24] MEDS: IPRATROPIUM/ALBUTEROL 0.5-3(2.5)MG/3ML NEB HHN SCH ×6 (01:38→20:42)
[2021-02-24 04:00] VITALS: BP 150/66
[2021-02-24] MEDS: METOCLOPRAMIDE HCL 10MG/2ML VIAL IV SCH ×4 (05:47→23:44)
[2021-02-24 06:51] LABS: CHLORIDE 104 mEq/L (98-107)
[2021-02-24 06:58] LABS: INR 1.1; PROTHROMBIN TIME 12.2 sec (9.6-11.0)
[2021-02-24 07:02] LABS: HEMATOCRIT 38.9 % (42.0-52.0); HEMOGLOBIN 12.8 g/dL (14.0-18.0); MEAN CORPUSCULAR HEMOGLOBIN 29.7 pg (28.0-32.0); MEAN CORPUSCULAR VOLUME 90.7 fL (80.0-94.0); PLATELET 94 x1000/uL (130-400); RED BLOOD CELL COUNT 4.29 mill/uL (4.7-6.1); RED CELL DISTRIBUTION WIDTH 13.4 % (11.6-14.6)
[2021-02-24] MEDS: SUCRALFATE 1 G/10 ML UDC PO SCH ×4 (07:20→20:53)
[2021-02-24] MEDS: BLOOD SUGAR DIAGNOSTIC STRIP TEST SCH ×4 (07:20→20:55)
[2021-02-24] MEDS: INSULIN LISPRO 100 UNITS/ML SUBCUT SCH ×4 (07:48→20:55)
[2021-02-24 08:05] VITALS: BP 142/77
[2021-02-24] MEDS: PANTOPRAZOLE SODIUM 40 MG/VIAL IV SCH (09:09)
[2021-02-24] MEDS: ONDANSETRON HCL 4MG/2ML INJ IV PRN (09:09)
[2021-02-24] MEDS: SODIUM CHLORIDE 0.45% 1,000 ML IV SCH ×2 (09:11→22:13)
[2021-02-24] MEDS: INSULIN GLARGINE UD 100 UNITS/ML SYR SUBCUT SCH ×2 (09:30→22:36)
[2021-02-24 12:31] VITALS: BP 147/75
[2021-02-24] MEDS ORDERED: BACTERIOSTATIC SODIUM CHLORIDE 0.9% 30ML VIAL IJ ONE (13:09)
[2021-02-24] MEDS ORDERED: FENTANYL CITRATE/PF 50MCG/ML 2ML VIAL ONE (13:44)
[2021-02-24] MEDS ORDERED: FENTANYL CITRATE/PF 50MCG/ML 2ML VIAL IV PRN (13:44)
[2021-02-24] MEDS ORDERED: MIDAZOLAM HCL 5 MG/5 ML VIAL ONE (13:44)
[2021-02-24] MEDS ORDERED: MIDAZOLAM HCL 5 MG/5 ML VIAL IV PRN (13:44)
[2021-02-24] MEDS ORDERED: DIAZEPAM 5 MG/ML 2ML CPJ ONE (13:44)
[2021-02-24] MEDS: CEFTRIAXONE 1,000 MG in DEXTROSE 5% WATER 50 ML IV SCH (16:00)
[2021-02-24] MEDS ORDERED: SUCR1TAB30 MT (16:27)
[2021-02-24] MEDS ORDERED: OMEP40CA20 PO (16:27)
[2021-02-24] MEDS ORDERED: POTASSIUM CHLORIDE INJ 40 MEQ in DEXT 5% WATER 250 ML IV NR (17:30)
[2021-02-24 20:00] VITALS: BP 159/82
[2021-02-24] MEDS ORDERED: NALOXONE HCL 0.4MG/ML VIAL IV PRN (20:30)
[2021-02-25] VITALS: BP 126/70
[2021-02-25] MEDS: IPRATROPIUM/ALBUTEROL 0.5-3(2.5)MG/3ML NEB HHN SCH ×6 (00:33→20:24)
[2021-02-25 04:00] VITALS: BP 141/72
[2021-02-25] MEDS: METOCLOPRAMIDE HCL 10MG/2ML VIAL IV SCH ×3 (05:45→18:12)
[2021-02-25] MEDS: SUCRALFATE 1 G/10 ML UDC PO SCH ×5 (07:20→21:00)
[2021-02-25] MEDS: BLOOD SUGAR DIAGNOSTIC STRIP TEST SCH ×4 (07:37→21:02)
[2021-02-25] MEDS: INSULIN LISPRO 100 UNITS/ML SUBCUT SCH ×4 (07:38→21:01)
[2021-02-25 08:10] VITALS: BP 138/68
[2021-02-25] MEDS: PANTOPRAZOLE SODIUM 40 MG/VIAL IV SCH (08:20)
[2021-02-25 09:13] LABS: BASOPHILS % 0.9 % (0.0-2.0); HEMATOCRIT. 41.8 % (42.0-52.0); HEMOGLOBIN. 13.3 g/dL (14.0-18.0); LYMPHOCYTES % 19.3 % (20.0-50.0); MEAN CORPUSCULAR HEMOGLOBIN 29.8 pg (28.0-32.0); MEAN CORPUSCULAR VOLUME 93.4 fL (80.0-94.0); MONOCYTES % 10.8 % (2.0-8.0); RED BLOOD CELL COUNT 4.48 mill/uL (4.7-6.1); RED CELL DISTRIBUTION WIDTH 14.4 % (11.6-14.6)
[2021-02-25 09:18] LABS: CHLORIDE 105 mEq/L (98-107)
[2021-02-25] MEDS ORDERED: IOHEXOL-350 100 ML BOTTLE ONE (09:48)
[2021-02-25] MEDS: INSULIN GLARGINE UD 100 UNITS/ML SYR SUBCUT SCH ×2 (10:54→21:46)
[2021-02-25 12:06] VITALS: BP 145/75
[2021-02-25] MEDS: SODIUM CHLORIDE 0.45% 1,000 ML IV SCH (12:29)
[2021-02-25 15:32] LABS: MEAN PLATELET VOLUME 9.5 fl (7.4-10.4); PLATELET 89 x1000/uL (130-400)
[2021-02-25 16:00] VITALS: BP 106/73
[2021-02-25] MEDS: CEFTRIAXONE 1,000 MG in DEXTROSE 5% WATER 50 ML IV SCH (16:00)
[2021-02-25 18:08] LABS: HEPATITIS B SURFACE ANTIGEN NEGATIVE
[2021-02-25 20:00] VITALS: BP 136/72
[2021-02-26] VITALS: BP 110/65
[2021-02-26] MEDS: SODIUM CHLORIDE 0.45% 1,000 ML IV SCH ×2 (00:15→13:38)
[2021-02-26] MEDS: METOCLOPRAMIDE HCL 10MG/2ML VIAL IV SCH ×3 (00:20→12:32)
[2021-02-26] MEDS: IPRATROPIUM/ALBUTEROL 0.5-3(2.5)MG/3ML NEB HHN SCH ×4 (00:28→12:57)
[2021-02-26 04:00] VITALS: BP 126/62
[2021-02-26 06:57] LABS: BASOPHILS % 0.3 % (0.0-2.0); HEMATOCRIT. 43.7 % (42.0-52.0); HEMOGLOBIN. 13.7 g/dL (14.0-18.0); LYMPHOCYTES % 20.9 % (20.0-50.0); MEAN CORPUSCULAR HEMOGLOBIN 30.3 pg (28.0-32.0); MEAN CORPUSCULAR VOLUME 96.8 fL (80.0-94.0); MEAN PLATELET VOLUME 9.5 fl (7.4-10.4); NEUTROPHILS % 64.8 % (40.0-76.0); PLATELET 86 x1000/uL (130-400); RED BLOOD CELL COUNT 4.51 mill/uL (4.7-6.1); RED CELL DISTRIBUTION WIDTH 14.9 % (11.6-14.6)
[2021-02-26 07:25] LABS: CHLORIDE 104 mEq/L (98-107)
[2021-02-26] MEDS: BLOOD SUGAR DIAGNOSTIC STRIP TEST SCH ×2 (07:50→12:07)
[2021-02-26 08:00] VITALS: BP 118/61
[2021-02-26] MEDS: SUCRALFATE 1 G/10 ML UDC PO SCH ×2 (08:43→12:32)
[2021-02-26] MEDS: PANTOPRAZOLE SODIUM 40 MG/VIAL IV SCH (08:44)
[2021-02-26] MEDS: INSULIN LISPRO 100 UNITS/ML SUBCUT SCH ×2 (08:44→12:31)
[2021-02-26 09:56] VITALS: BP 20/118
[2021-02-26] MEDS: INSULIN GLARGINE UD 100 UNITS/ML SYR SUBCUT SCH (10:49)
[2021-02-26 12:00] VITALS: BP 140/73
== END 2021-02-26 15:00 | DRG 74 ==
LOC: ER 11:33 → 6WST 16:24 → ENRESERV 19:48
PROVIDERS: ADMIT Internal Medicine; ATTEND Internal Medicine
PROC: 0DB78ZX Excision of Stomach, Pylorus, Via Natural or Artificial Opening Endoscopic, Diagnostic (ICD-10-PCS; principal; 2021-02-24)
DX: E11.43 Type 2 diabetes mellitus with diabetic autonomic (poly)neuropathy (principal); N39.0 Urinary tract infection, site not specified; E44.0 Moderate protein-calorie malnutrition; M48.54XA Collapsed vertebra, not elsewhere classified, thoracic region, initial encounter for fracture; K29.70 Gastritis, unspecified, without bleeding; I11.9 Hypertensive heart disease without heart failure; J45.909 Unspecified asthma, uncomplicated; Z20.822 Contact with and (suspected) exposure to COVID-19; E87.6 Hypokalemia; R13.10 Dysphagia, unspecified; D64.9 Anemia, unspecified; D69.6 Thrombocytopenia, unspecified; R26.9 Unspecified abnormalities of gait and mobility; K31.84 Gastroparesis; M19.90 Unspecified osteoarthritis, unspecified site; K21.9 Gastro-esophageal reflux disease without esophagitis; K57.90 Diverticulosis of intestine, part unspecified, without perforation or abscess without bleeding; G70.00 Myasthenia gravis without (acute) exacerbation; N26.1 Atrophy of kidney (terminal); E78.5 Hyperlipidemia, unspecified; N40.0 Benign prostatic hyperplasia without lower urinary tract symptoms; R29.6 Repeated falls; E11.65 Type 2 diabetes mellitus with hyperglycemia; K52.9 Noninfective gastroenteritis and colitis, unspecified; Z88.0 Allergy status to penicillin; Z79.899 Other long term (current) drug therapy; I25.2 Old myocardial infarction; Z90.49 Acquired absence of other specified parts of digestive tract; Z98.41 Cataract extraction status, right eye; Z98.42 Cataract extraction status, left eye; Z87.11 Personal history of peptic ulcer disease; Z79.84 Long term (current) use of oral hypoglycemic drugs; Z87.19 Personal history of other diseases of the digestive system; Z68.29 Body mass index [BMI] 29.0-29.9, adult; K20.90 Esophagitis, unspecified without bleeding; K26.9 Duodenal ulcer, unspecified as acute or chronic, without hemorrhage or perforation
CPT/HCPCS: 36415; 71045; 74178; 76700; 80048; 80053; 80061; 81003; 82550; 82553; 82962; 83036; 83605; 84145; 84443; 84484; 85025; 85027; 87426; 88305; 88312; 88313; 92610; 93005; 94640; 96374; 97162; 99283; 99285; C1893; C9113; J0696; J1815; J2250; J2405; J2765; J3010; J3480; J3490; J7060; Q9967; A4315

== ENCOUNTER 2021-03-25 18:33 | Inpatient (IN) | payer MEDICARE, MEDICAID ==
[~2021-03-25] VITALS: Ht 175.3 cm; Wt 82.1 kg
[~2021-03-25 18:33] MED LIST changes: -CIPR250T4 MT; -OMEP40CA20 MT
[2021-03-25] MEDS ORDERED: IPRATROPIUM BROMIDE (0.02%) 0.5MG/2.5ML NEB HHN STA (19:06)
[2021-03-25] MEDS ORDERED: ALBUTEROL (0.083%) 2.5MG/3ML NEB HHN STA (19:06)
[2021-03-25] MEDS ORDERED: METHYLPREDNISOLONE SOD SUCC 125 MG/2 ML VIAL IV STA (19:06)
[2021-03-25 19:21] LABS: BASOPHILS % 0.9 % (0.0-2.0); EOSINOPHILS % 2.5 % (0.0-5.0); HEMATOCRIT. 44.6 % (42.0-52.0); HEMOGLOBIN. 14.2 g/dL (14.0-18.0); LYMPHOCYTES % 25.9 % (20.0-50.0); MEAN CORPUSCULAR HEMOGLOBIN 29.5 pg (28.0-32.0); MEAN CORPUSCULAR VOLUME 92.4 fL (80.0-94.0); MEAN PLATELET VOLUME 8.9 fl (7.4-10.4); MONOCYTES % 10.1 % (2.0-8.0); NEUTROPHILS % 60.6 % (40.0-76.0); PLATELET 86 x1000/uL (130-400); RED BLOOD CELL COUNT 4.82 mill/uL (4.7-6.1); RED CELL DISTRIBUTION WIDTH 14.7 % (11.6-14.6)
[2021-03-25 19:27] LABS: CHLORIDE 105 mEq/L (98-107)
[2021-03-25] MEDS ORDERED: PIPERACILLIN/TAZ 3.375G PREMIX 50 ML IV ONE (20:30)
[2021-03-25] MEDS ORDERED: VANCOMYCIN 1 G PREMIX 200 ML IV ONE (20:30)
[2021-03-26] MEDS: BLOOD SUGAR DIAGNOSTIC STRIP TEST SCH ×4 (07:10→20:16)
[2021-03-26] MEDS ORDERED: ACETAMINOPHEN 325MG TABLET PO PRN ×2 (07:15→11:15)
[2021-03-26] MEDS ORDERED: DEXTROSE 50% WATER 50ML SYRINGE IV PRN (07:15)
[2021-03-26] MEDS: INSULIN LISPRO 100 UNITS/ML SUBCUT SCH ×4 (07:40→20:17)
[2021-03-26 08:00] VITALS: BP 115/92
[2021-03-26] MEDS: ZINC SULFATE 220 MG ( 50 ) CAPSULE PO SCH (10:33)
[2021-03-26] MEDS: ASCORBIC ACID 500 MG TABLET PO SCH (10:33)
[2021-03-26] MEDS ORDERED: LORAZEPAM 0.5MG TABLET PO PRN (11:15)
[2021-03-26] MEDS ORDERED: NA PHOS,M-B/NA PHOS,DI-BA ENEMA 118ML PR PRN (11:15)
[2021-03-26] MEDS ORDERED: HYDROCODONE/ACETAMINOPHEN 5/325MG TABLET PO PRN (11:15)
[2021-03-26] MEDS ORDERED: CLONIDINE 0.1MG TABLET PO PRN (11:15)
[2021-03-26] MEDS ORDERED: MAGNESIUM/ALUMINUM HYDROXIDE/SIMETHICONE 30ML UDC PO PRN (11:15)
[2021-03-26] MEDS ORDERED: DOCUSATE SODIUM 100MG CAPSULE PO PRN (11:15)
[2021-03-26] MEDS ORDERED: IPRATROPIUM/ALBUTEROL 0.5-3(2.5)MG/3ML NEB NEB PRN (11:15)
[2021-03-26] MEDS ORDERED: GUAIFENESIN 200MG/10ML SUGAR FREE UDC PO PRN (11:15)
[2021-03-26] MEDS ORDERED: DIPHENHYDRAMINE 50MG/ML VIAL IV PRN (11:15)
[2021-03-26] MEDS ORDERED: ACETAMINOPHEN 650MG SUPP PR PRN (11:15)
[2021-03-26] MEDS ORDERED: METRONIDAZOLE 500 MG PREMIX 100 ML IV SCH (11:15)
[2021-03-26 11:51] LABS: BASOPHILS % 0.2 % (0.0-2.0); HEMATOCRIT. 40.7 % (42.0-52.0); MEAN CORPUSCULAR HEMOGLOBIN 29.6 pg (28.0-32.0); MEAN CORPUSCULAR VOLUME 92.9 fL (80.0-94.0); MEAN PLATELET VOLUME 9.3 fl (7.4-10.4); NEUTROPHILS % 85.8 % (40.0-76.0); PLATELET 75 x1000/uL (130-400); RED BLOOD CELL COUNT 4.39 mill/uL (4.7-6.1); RED CELL DISTRIBUTION WIDTH 14.6 % (11.6-14.6)
[2021-03-26 12:00] VITALS: BP 120/81
[2021-03-26 12:04] LABS: CHLORIDE 104 mEq/L (98-107)
[2021-03-26] MEDS: METHYLPREDNISOLONE SOD SUCC 40 MG/ML VIAL IV SCH ×2 (12:33→20:16)
[2021-03-26] MEDS: FAMOTIDINE 20MG/2ML VIAL IV SCH (12:33)
[2021-03-26 14:40] VITALS: BP 115/92
[2021-03-26 14:58] LABS: BG BASE EXCESS 0.8 mmol/L (-2.0-2.0); BG CARBOXYHEMOGLOBIN 0.5 % (0.5-1.5); BG DEOXYHEMOGLOBIN 5.2 % (0.0-5.0); BG FRACTION INSPIRED OXYGEN 21; BG HCO3 ACT 26.7 mmol/L (22.0-26.0); BG METHEMOGLOBIN 0.3 % (0.0-1.5); BG OXYGEN SATURATION 94.8 % (92.0-98.5); BG PCO2 47.2 mmHg (35.0-45.0); BG PO2 76.3 mmHg (75.0-100.0); BG SAMPLE SITE RIGHT BRACHIAL; BG VENT MODE ROOM AIR
[2021-03-26 16:00] VITALS: BP 118/82
[2021-03-26 16:40] LABS: CREATINE KINASE MB FRACTION 1.3 ng/mL (0.5-3.6)
[2021-03-26] MEDS: METRONIDAZOLE 500MG TABLET PO SCH ×2 (16:42→23:11)
[2021-03-26] MEDS: AZTREONAM 1 G in DEXTROSE 5% WATER 50 ML IV SCH (16:43)
[2021-03-26] MEDS ORDERED: ENOXAPARIN 40MG/0.4ML SYR SUBCUT SCH (18:00)
[2021-03-26 20:00] VITALS: BP 117/95
[2021-03-26] MEDS: GUAIFENESIN 600MG ER TABLET PO SCH (20:17)
[2021-03-26] MEDS: IPRATROPIUM/ALBUTEROL 0.5-3(2.5)MG/3ML NEB HHN SCH ×2 (21:20→21:30)
[2021-03-26 23:54] VITALS: BP 133/71
[2021-03-27] MEDS: IPRATROPIUM/ALBUTEROL 0.5-3(2.5)MG/3ML NEB HHN SCH ×5 (01:20→15:30)
[2021-03-27] MEDS: AZTREONAM 1 G in DEXTROSE 5% WATER 50 ML IV SCH ×2 (01:37→17:16)
[2021-03-27 01:51] LABS: CREATINE KINASE 342 IU/L (39-308)
[2021-03-27 01:52] LABS: CREATINE KINASE MB FRACTION < 1.0 ng/mL (0.5-3.6)
[2021-03-27 03:22] VITALS: BP 128/73
[2021-03-27] MEDS: BLOOD SUGAR DIAGNOSTIC STRIP TEST SCH ×4 (05:56→20:15)
[2021-03-27] MEDS: METRONIDAZOLE 500MG TABLET PO SCH ×3 (06:05→20:14)
[2021-03-27] MEDS: INSULIN LISPRO 100 UNITS/ML SUBCUT SCH ×4 (06:05→20:17)
[2021-03-27 08:00] VITALS: BP 130/74
[2021-03-27] MEDS: METHYLPREDNISOLONE SOD SUCC 40 MG/ML VIAL IV SCH ×2 (09:09→20:14)
[2021-03-27] MEDS: ZINC SULFATE 220 MG ( 50 ) CAPSULE PO SCH (09:09)
[2021-03-27] MEDS: ASCORBIC ACID 500 MG TABLET PO SCH (09:09)
[2021-03-27] MEDS: FAMOTIDINE 20MG/2ML VIAL IV SCH (09:09)
[2021-03-27] MEDS: GUAIFENESIN 600MG ER TABLET PO SCH ×2 (09:09→20:14)
[2021-03-27 11:57] VITALS: BP 136/78
[2021-03-27 12:07] LABS: CHLORIDE 104 mEq/L (98-107)
[2021-03-27 12:08] LABS: HEMATOCRIT. 43.2 % (42.0-52.0); HEMOGLOBIN. 14.3 g/dL (14.0-18.0); MEAN CORPUSCULAR HEMOGLOBIN 30.7 pg (28.0-32.0); MEAN PLATELET VOLUME 9.2 fl (7.4-10.4); PLATELET 80 x1000/uL (130-400); RED BLOOD CELL COUNT 4.64 mill/uL (4.7-6.1); RED CELL DISTRIBUTION WIDTH 14.5 % (11.6-14.6)
[2021-03-27 12:15] LABS: LDL CHOLESTEROL 86 mg/dL (5-100)
[2021-03-27 12:16] LABS: HDL CHOLESTEROL 59 mg/dL (40-59); T4 FREE 1.07 ng/dL (0.76-1.46)
[2021-03-27] MEDS ORDERED: INFLUENZA VACCINE 05/PF 0.5 ML SYRINGE IM ONE (15:30)
[2021-03-27] MEDS ORDERED: NALOXONE HCL 0.4MG/ML VIAL IV PRN (15:45)
[2021-03-27 16:00] VITALS: BP 130/80
[2021-03-27 16:09] LABS: PLATELET ESTIMATE DECREASED
[2021-03-27] MEDS ORDERED: INSULIN GLARGINE UD 100 UNITS/ML SYR SUBCUT NR (16:15)
[2021-03-27 17:24] LABS: HEMATOCRIT. 44.8 % (42.0-52.0); HEMOGLOBIN. 14.4 g/dL (14.0-18.0); MEAN CORPUSCULAR VOLUME 93.3 fL (80.0-94.0); MEAN PLATELET VOLUME 9.7 fl (7.4-10.4); PLATELET 96 x1000/uL (130-400)
[2021-03-27 17:37] LABS: CHLORIDE 104 mEq/L (98-107)
[2021-03-27 17:52] LABS: PLATELET ESTIMATE DECREASED
[2021-03-27 20:00] VITALS: BP 135/73
[2021-03-28] VITALS (7 sets, daily range): BP systolic 127–149; BP diastolic 54–85
[2021-03-28] MEDS: AZTREONAM 1 G in DEXTROSE 5% WATER 50 ML IV SCH ×2 (02:32→13:00)
[2021-03-28] MEDS: METRONIDAZOLE 500MG TABLET PO SCH ×3 (05:19→22:03)
[2021-03-28] MEDS: BLOOD SUGAR DIAGNOSTIC STRIP TEST SCH ×4 (05:19→21:00)
[2021-03-28] MEDS: INSULIN LISPRO 100 UNITS/ML SUBCUT SCH ×3 (05:19→22:01)
[2021-03-28] MEDS ORDERED: INFLUENZA VACCINE 05/PF 0.5 ML SYRINGE IM ONE (06:00)
[2021-03-28] MEDS: IPRATROPIUM/ALBUTEROL 0.5-3(2.5)MG/3ML NEB HHN SCH ×4 (07:42→20:44)
[2021-03-28] MEDS: FAMOTIDINE 20MG TABLET PO SCH ×2 (09:30→22:01)
[2021-03-28] MEDS: ZINC SULFATE 220 MG ( 50 ) CAPSULE PO SCH (09:31)
[2021-03-28] MEDS: METHYLPREDNISOLONE SOD SUCC 40 MG/ML VIAL IV SCH ×2 (09:31→22:00)
[2021-03-28] MEDS: ASCORBIC ACID 500 MG TABLET PO SCH (09:31)
[2021-03-28 12:09] LABS: BASOPHILS % 0.1 % (0.0-2.0); HEMATOCRIT. 42.3 % (42.0-52.0); HEMOGLOBIN. 13.7 g/dL (14.0-18.0); LYMPHOCYTES % 8.2 % (20.0-50.0); MEAN CORPUSCULAR HEMOGLOBIN 29.8 pg (28.0-32.0); MEAN CORPUSCULAR VOLUME 91.7 fL (80.0-94.0); NEUTROPHILS % 86.7 % (40.0-76.0); PLATELET 76 x1000/uL (130-400); RED BLOOD CELL COUNT 4.61 mill/uL (4.7-6.1); RED CELL DISTRIBUTION WIDTH 15.1 % (11.6-14.6)
[2021-03-28 12:18] LABS: CHLORIDE 105 mEq/L (98-107)
[2021-03-28] MEDS ORDERED: SODIUM POLYSTYRENE SULFONATE 15 G/60 ML BOT PO NR (16:30)
[2021-03-28] MEDS ORDERED: ONDANSETRON HCL 4MG/2ML INJ IV PRN (20:45)
[2021-03-28] MEDS: ONDANSETRON HCL 4MG/2ML INJ IV PRN (22:01)
[2021-03-28] MEDS: GUAIFENESIN 600MG ER TABLET PO SCH (22:25)
[2021-03-29] VITALS: BP 135/59
[2021-03-29] MEDS: IPRATROPIUM/ALBUTEROL 0.5-3(2.5)MG/3ML NEB HHN SCH ×6 (00:35→23:53)
[2021-03-29] MEDS: AZTREONAM 1 G in DEXTROSE 5% WATER 50 ML IV SCH ×2 (01:41→12:57)
[2021-03-29 04:00] VITALS: BP 136/59
[2021-03-29] MEDS: METRONIDAZOLE 500MG TABLET PO SCH ×3 (06:00→22:05)
[2021-03-29] MEDS: BLOOD SUGAR DIAGNOSTIC STRIP TEST SCH ×4 (06:43→20:38)
[2021-03-29] MEDS: ONDANSETRON HCL 4MG/2ML INJ IV PRN ×2 (06:48→22:05)
[2021-03-29] MEDS: INSULIN LISPRO 100 UNITS/ML SUBCUT SCH ×4 (06:50→22:05)
[2021-03-29 08:00] VITALS: BP 138/62
[2021-03-29 08:40] LABS: HEMATOCRIT. 41.3 % (42.0-52.0); HEMOGLOBIN. 13.5 g/dL (14.0-18.0); LYMPHOCYTES % 11.9 % (20.0-50.0); MEAN CORPUSCULAR HEMOGLOBIN 29.9 pg (28.0-32.0); MEAN CORPUSCULAR VOLUME 91.7 fL (80.0-94.0); MONOCYTES % 5.3 % (2.0-8.0); NEUTROPHILS % 82.8 % (40.0-76.0); PLATELET 72 x1000/uL (130-400); RED CELL DISTRIBUTION WIDTH 15.1 % (11.6-14.6)
[2021-03-29 08:47] LABS: CHLORIDE 104 mEq/L (98-107)
[2021-03-29] MEDS: FAMOTIDINE 20MG TABLET PO SCH ×2 (09:00→22:05)
[2021-03-29] MEDS: ASCORBIC ACID 500 MG TABLET PO SCH (10:06)
[2021-03-29] MEDS: METHYLPREDNISOLONE SOD SUCC 40 MG/ML VIAL IV SCH ×2 (10:06→22:05)
[2021-03-29] MEDS: ZINC SULFATE 220 MG ( 50 ) CAPSULE PO SCH (10:06)
[2021-03-29] MEDS: GUAIFENESIN 600MG ER TABLET PO SCH ×3 (10:06→22:05)
[2021-03-29 12:00] VITALS: BP 135/71
[2021-03-29 16:00] VITALS: BP 132/60
[2021-03-29 20:00] VITALS: BP 125/70
[2021-03-30] VITALS: BP 145/61
[2021-03-30] MEDS: AZTREONAM 1 G in DEXTROSE 5% WATER 50 ML IV SCH ×2 (02:00→13:50)
[2021-03-30 04:00] VITALS: BP 144/78
[2021-03-30] MEDS: IPRATROPIUM/ALBUTEROL 0.5-3(2.5)MG/3ML NEB HHN SCH ×5 (04:49→20:53)
[2021-03-30] MEDS: BLOOD SUGAR DIAGNOSTIC STRIP TEST SCH ×4 (06:22→20:42)
[2021-03-30] MEDS: INSULIN LISPRO 100 UNITS/ML SUBCUT SCH ×4 (06:43→20:59)
[2021-03-30] MEDS: METRONIDAZOLE 500MG TABLET PO SCH ×3 (06:43→22:16)
[2021-03-30 08:00] VITALS: BP 132/68
[2021-03-30] MEDS: FAMOTIDINE 20MG TABLET PO SCH ×2 (10:08→20:58)
[2021-03-30] MEDS: ZINC SULFATE 220 MG ( 50 ) CAPSULE PO SCH (10:08)
[2021-03-30] MEDS: METHYLPREDNISOLONE SOD SUCC 40 MG/ML VIAL IV SCH ×2 (10:08→20:58)
[2021-03-30] MEDS: GUAIFENESIN 600MG ER TABLET PO SCH ×2 (10:08→20:43)
[2021-03-30] MEDS: ASCORBIC ACID 500 MG TABLET PO SCH (10:08)
[2021-03-30 12:00] VITALS: BP 144/60
[2021-03-30 16:00] VITALS: BP 136/68
[2021-03-30 20:00] VITALS: BP 128/66
[2021-03-31] VITALS: BP 123/52
[2021-03-31] MEDS: IPRATROPIUM/ALBUTEROL 0.5-3(2.5)MG/3ML NEB HHN SCH ×5 (00:13→15:09)
[2021-03-31] MEDS: AZTREONAM 1 G in DEXTROSE 5% WATER 50 ML IV SCH ×2 (01:07→13:41)
[2021-03-31 04:00] VITALS: BP 143/61
[2021-03-31] MEDS: INSULIN LISPRO 100 UNITS/ML SUBCUT SCH ×3 (06:32→18:34)
[2021-03-31] MEDS: BLOOD SUGAR DIAGNOSTIC STRIP TEST SCH ×3 (06:32→17:10)
[2021-03-31] MEDS: METRONIDAZOLE 500MG TABLET PO SCH (06:33)
[2021-03-31 06:36] LABS: BASOPHILS % 0.1 % (0.0-2.0); HEMATOCRIT. 44.8 % (42.0-52.0); HEMOGLOBIN. 14.5 g/dL (14.0-18.0); LYMPHOCYTES % 12.8 % (20.0-50.0); MEAN CORPUSCULAR HEMOGLOBIN 30.1 pg (28.0-32.0); MEAN CORPUSCULAR VOLUME 92.9 fL (80.0-94.0); MEAN PLATELET VOLUME 8.7 fl (7.4-10.4); MONOCYTES % 7.2 % (2.0-8.0); NEUTROPHILS % 79.9 % (40.0-76.0); PLATELET 69 x1000/uL (130-400); RED BLOOD CELL COUNT 4.82 mill/uL (4.7-6.1); RED CELL DISTRIBUTION WIDTH 15.3 % (11.6-14.6)
[2021-03-31 06:55] LABS: CHLORIDE 107 mEq/L (98-107)
[2021-03-31 08:00] VITALS: BP 132/68
[2021-03-31] MEDS: METHYLPREDNISOLONE SOD SUCC 40 MG/ML VIAL IV SCH (09:34)
[2021-03-31] MEDS: GUAIFENESIN 600MG ER TABLET PO SCH (09:35)
[2021-03-31] MEDS: FAMOTIDINE 20MG TABLET PO SCH (09:35)
[2021-03-31] MEDS: ASCORBIC ACID 500 MG TABLET PO SCH (09:35)
[2021-03-31] MEDS: ZINC SULFATE 220 MG ( 50 ) CAPSULE PO SCH (09:35)
[2021-03-31 12:00] VITALS: BP 125/60
[2021-03-31] MEDS ORDERED: POLYETHYLENE GLYCOL 3350 (17GM) 1 DOSE PACK PO SCH (13:00)
[2021-03-31 16:00] VITALS: BP 128/58
== END 2021-03-31 19:45 | DRG 193 ==
LOC: ER 18:33 → MICUSO 03-26 00:26 → EDBEDREQ 03-26 00:32 → EDBEDREQDT 03-26 00:32 → EDBEDREQTM 03-26 00:32 → 8WST 03-26 05:21
PROVIDERS: ADMIT Internal Medicine; ATTEND Internal Medicine
DX: J18.9 Pneumonia, unspecified organism (principal); J96.00 Acute respiratory failure, unspecified whether with hypoxia or hypercapnia; J44.0 Chronic obstructive pulmonary disease with (acute) lower respiratory infection; J45.901 Unspecified asthma with (acute) exacerbation; R65.10 Systemic inflammatory response syndrome (SIRS) of non-infectious origin without acute organ dysfunction; E11.65 Type 2 diabetes mellitus with hyperglycemia; I10 Essential (primary) hypertension; E78.5 Hyperlipidemia, unspecified; G70.00 Myasthenia gravis without (acute) exacerbation; K57.90 Diverticulosis of intestine, part unspecified, without perforation or abscess without bleeding; R13.10 Dysphagia, unspecified; M06.9 Rheumatoid arthritis, unspecified; N26.1 Atrophy of kidney (terminal); M19.90 Unspecified osteoarthritis, unspecified site; R29.6 Repeated falls; Z20.822 Contact with and (suspected) exposure to COVID-19; N40.0 Benign prostatic hyperplasia without lower urinary tract symptoms; K21.00 Gastro-esophageal reflux disease with esophagitis, without bleeding; D64.9 Anemia, unspecified; D69.6 Thrombocytopenia, unspecified; Z87.11 Personal history of peptic ulcer disease; Z87.19 Personal history of other diseases of the digestive system; Z79.899 Other long term (current) drug therapy; Z87.440 Personal history of urinary (tract) infections; Z88.0 Allergy status to penicillin; Z98.42 Cataract extraction status, left eye; Z98.41 Cataract extraction status, right eye
CPT/HCPCS: 36415; 36600; 71045; 74018; 80048; 80053; 80061; 82375; 82550; 82553; 82805; 82962; 83036; 83880; 84439; 84443; 84484; 85025; 87426; 90686; 92610; 93005; 93970; 94640; 97116; 97162; 99285; C1893; J1815; J2405; J2543; J2920; J2930; J3370; J3490; J7040; J7060

== ENCOUNTER 2021-10-30 14:08 | Emergency (ER) | payer MEDICARE, MEDICAID ==
[~2021-10-30] VITALS: Ht 175.3 cm; Wt 82.0 kg
[2021-10-30] MEDS ORDERED: SODIUM CHLORIDE 0.9% 1,000 ML IV ONE (17:15)
[2021-10-30] MEDS ORDERED: ONDANSETRON HCL 4MG/2ML INJ IV STA (17:15)
[2021-10-30 18:11] LABS: BASOPHILS % 0.6 % (0.0-2.0); HEMOGLOBIN. 12.6 g/dL (14.0-18.0); LYMPHOCYTES % 22.9 % (20.0-50.0); MEAN CORPUSCULAR HEMOGLOBIN 29.4 pg (28.0-32.0); MONOCYTES % 8.7 % (2.0-8.0); NEUTROPHILS % 65.8 % (40.0-76.0); PLATELET 75 x1000/uL (130-400); RED CELL DISTRIBUTION WIDTH 15.4 % (11.6-14.6)
[2021-10-30 18:19] LABS: CHLORIDE 105 mEq/L (98-107)
[2021-10-30 19:49] LABS: CLARITY URINE CLOUDY (CLEAR); COLOR URINE YELLOW (YELLOW); KETONES URINE NEGATIVE (NEGATIVE); LEUKOCYTE ESTERASE URINE 1+ (NEGATIVE); NITRITE URINE NEGATIVE (NEGATIVE); OCCULT BLOOD URINE NEGATIVE (NEGATIVE); PROTEIN URINE TRACE (NEGATIVE); SPECIFIC GRAVITY URINE 1.011 (1.005-1.030)
[2021-10-30] MEDS ORDERED: ONDANSETRON 4MG ODT PO ONE (20:15)
[2021-10-30] MEDS ORDERED: NITROFURANTOIN 100MG M/M CAPSULE PO ONE (20:15)
[2021-10-30] MEDS ORDERED: NITR-87 MT (20:15)
[2021-10-30] MEDS ORDERED: ONDA4TAB11 PO (20:16)
[2021-10-30 20:44] VITALS: BP 156/64
== END 2021-10-30 21:00 | disposition home or self-care (01) ==
LOC: ER 14:08
DX: N39.0 Urinary tract infection, site not specified (principal); R11.2 Nausea with vomiting, unspecified; E11.9 Type 2 diabetes mellitus without complications; I10 Essential (primary) hypertension; F41.9 Anxiety disorder, unspecified; E78.00 Pure hypercholesterolemia, unspecified; Z88.0 Allergy status to penicillin
CPT/HCPCS: 36415; 74176; 80053; 81003; 83690; 85025; 93005; 99285; J7030; Q0162

== ENCOUNTER 2022-02-25 11:17 | Inpatient (IN) | payer MEDICARE, MEDICAID ==
[~2022-02-25] VITALS: Ht 175.3 cm; Wt 92.5 kg
[~2022-02-25 11:17] MED LIST changes: +NITR-87 MT; +ONDA4TAB11 PO
[2022-02-25] MEDS ORDERED: LEVOFLOXACIN 750MG PREMIX 150 ML IV ONE (13:30)
[2022-02-25 14:02] LABS: CHLORIDE 105 mEq/L (98-107)
[2022-02-25 14:36] LABS: CLARITY URINE CLOUDY (CLEAR); COLOR URINE DARK YELLOW (YELLOW); KETONES URINE TRACE (NEGATIVE); LEUKOCYTE ESTERASE URINE 2+ (NEGATIVE); NITRITE URINE NEGATIVE (NEGATIVE); OCCULT BLOOD URINE TRACE (NEGATIVE); PH URINE 5.5 (4.5-8.0); PROTEIN URINE 1+ (NEGATIVE); SPECIFIC GRAVITY URINE 1.028 (1.005-1.030)
[2022-02-25 16:52] LABS: BASOPHILS % 0.6 % (0.0-2.0); HEMATOCRIT. 34.6 % (42.0-52.0); HEMOGLOBIN. 11.4 g/dL (14.0-18.0); LYMPHOCYTES % 23.7 % (20.0-50.0); MEAN CORPUSCULAR HEMOGLOBIN 30.9 pg (28.0-32.0); MEAN CORPUSCULAR VOLUME 93.8 fL (80.0-94.0); MEAN PLATELET VOLUME 8.9 fl (7.4-10.4); MONOCYTES % 10.6 % (2.0-8.0); NEUTROPHILS % 61.1 % (40.0-76.0); PLATELET 73 x1000/uL (130-400); RED BLOOD CELL COUNT 3.69 mill/uL (4.7-6.1); RED CELL DISTRIBUTION WIDTH 15.2 % (11.6-14.6)
[2022-02-25 20:00] VITALS: BP 124/73
[2022-02-26] VITALS (7 sets, daily range): BP systolic 114–151; BP diastolic 47–73
[2022-02-26] MEDS ORDERED: DEXT 5%/0.45% NACL 1000ML 1,000 ML IV SCH (01:15)
[2022-02-26] MEDS ORDERED: ONDANSETRON HCL 4MG/2ML INJ IV PRN (01:30)
[2022-02-26] MEDS ORDERED: DEXTROSE 50% WATER 50ML SYRINGE IV PRN (02:15)
[2022-02-26] MEDS: PANTOPRAZOLE SODIUM 40 MG/VIAL IV SCH ×2 (02:15→10:11)
[2022-02-26] MEDS ORDERED: LEVOFLOXACIN 500MG PREMIX 100 ML IV ONE (02:45)
[2022-02-26 04:05] LABS: INR 1.2; PROTHROMBIN TIME 12.9 sec (9.6-11.0)
[2022-02-26] MEDS ORDERED: METRONIDAZOLE 500 MG PREMIX 100 ML IV SCH (06:00)
[2022-02-26] MEDS: BLOOD SUGAR DIAGNOSTIC STRIP TEST SCH ×4 (07:20→21:23)
[2022-02-26 07:44] LABS: BASOPHILS % 0.5 % (0.0-2.0); EOSINOPHILS % 2.2 % (0.0-5.0); HEMATOCRIT. 32.5 % (42.0-52.0); HEMOGLOBIN. 10.8 g/dL (14.0-18.0); LYMPHOCYTES % 18.2 % (20.0-50.0); MEAN CORPUSCULAR HEMOGLOBIN 31.1 pg (28.0-32.0); MEAN CORPUSCULAR VOLUME 93.8 fL (80.0-94.0); MEAN PLATELET VOLUME 9.6 fl (7.4-10.4); MONOCYTES % 12.4 % (2.0-8.0); NEUTROPHILS % 66.7 % (40.0-76.0); PLATELET 70 x1000/uL (130-400); RED BLOOD CELL COUNT 3.46 mill/uL (4.7-6.1); RED CELL DISTRIBUTION WIDTH 14.9 % (11.6-14.6)
[2022-02-26] MEDS: INSULIN LISPRO 100 UNITS/ML SUBCUT SCH ×4 (07:50→21:29)
[2022-02-26] MEDS: LISINOPRIL 10MG TABLET PO SCH (10:10)
[2022-02-26] MEDS: TAMSULOSIN HCL 0.4MG SR CAPSULE PO SCH (10:10)
[2022-02-26] MEDS: METRONIDAZOLE 500 MG PREMIX 100 ML IV SCH ×3 (10:10→21:28)
[2022-02-26 12:23] LABS: CHLORIDE 105 mEq/L (98-107)
[2022-02-26] MEDS: LEVOFLOXACIN 500MG PREMIX 100 ML IV SCH (13:51)
[2022-02-26] MEDS: ATORVASTATIN CALCIUM 20MG TABLET PO SCH (21:28)
[2022-02-27] VITALS: BP 133/82
[2022-02-27 04:01] VITALS: BP 123/53
[2022-02-27] MEDS: METRONIDAZOLE 500 MG PREMIX 100 ML IV SCH ×3 (05:01→22:01)
[2022-02-27] MEDS: BLOOD SUGAR DIAGNOSTIC STRIP TEST SCH ×4 (06:40→21:00)
[2022-02-27 08:00] VITALS: BP 149/64
[2022-02-27] MEDS: PANTOPRAZOLE SODIUM 40 MG/VIAL IV SCH (09:13)
[2022-02-27] MEDS: LISINOPRIL 10MG TABLET PO SCH (09:14)
[2022-02-27] MEDS: TAMSULOSIN HCL 0.4MG SR CAPSULE PO SCH (09:14)
[2022-02-27] MEDS: INSULIN LISPRO 100 UNITS/ML SUBCUT SCH ×4 (09:16→21:00)
[2022-02-27 12:00] VITALS: BP 105/51
[2022-02-27] MEDS: LEVOFLOXACIN 500MG PREMIX 100 ML IV SCH (14:05)
[2022-02-27 16:00] VITALS: BP 114/61
[2022-02-27 20:00] VITALS: BP 116/53
[2022-02-27] MEDS: ATORVASTATIN CALCIUM 20MG TABLET PO SCH (21:00)
[2022-02-28] VITALS: BP 127/57
[2022-02-28 04:00] VITALS: BP 129/61
[2022-02-28] MEDS: METRONIDAZOLE 500MG TABLET PO SCH ×2 (05:13→13:34)
[2022-02-28] MEDS: BLOOD SUGAR DIAGNOSTIC STRIP TEST SCH ×2 (06:21→12:39)
[2022-02-28] MEDS: INSULIN LISPRO 100 UNITS/ML SUBCUT SCH ×2 (06:34→13:31)
[2022-02-28 08:00] VITALS: BP 108/53
[2022-02-28] MEDS: PANTOPRAZOLE SODIUM 40 MG/VIAL IV SCH (08:43)
[2022-02-28] MEDS: TAMSULOSIN HCL 0.4MG SR CAPSULE PO SCH (08:44)
[2022-02-28] MEDS: LISINOPRIL 10MG TABLET PO SCH ×2 (08:44→08:47)
[2022-02-28] MEDS ORDERED: PREDNISONE 20MG TABLET PO SCH (09:00)
[2022-02-28] MEDS ORDERED: LEVOFLOXACIN 500MG TABLET PO SCH (11:00)
[2022-02-28 12:00] VITALS: BP 143/77
[2022-02-28 16:00] VITALS: BP 138/75
[2022-02-28 16:25] VITALS: BP 143/77
== END 2022-02-28 18:16 | disposition home or self-care (01) | DRG 190 ==
LOC: ER 12:23 → 6EST 16:22 → EDBEDREQ 16:32 → EDBEDREQTM 16:32 → ENRESERV 20:02 → 6WST 02-26 07:46
PROVIDERS: ADMIT Internal Medicine; ATTEND Internal Medicine
DX: J44.1 Chronic obstructive pulmonary disease with (acute) exacerbation (principal); J18.9 Pneumonia, unspecified organism; Z20.822 Contact with and (suspected) exposure to COVID-19; I50.9 Heart failure, unspecified; I11.0 Hypertensive heart disease with heart failure; E78.00 Pure hypercholesterolemia, unspecified; E11.9 Type 2 diabetes mellitus without complications; N40.0 Benign prostatic hyperplasia without lower urinary tract symptoms; G70.00 Myasthenia gravis without (acute) exacerbation; Z86.16 Personal history of COVID-19; Z79.899 Other long term (current) drug therapy; Z88.0 Allergy status to penicillin; Z79.84 Long term (current) use of oral hypoglycemic drugs; J44.0 Chronic obstructive pulmonary disease with (acute) lower respiratory infection
CPT/HCPCS: 36415; 71045; 71250; 80048; 80053; 81003; 82962; 83036; 83880; 85025; 87070; 87077; 87186; 87426; 99285; C9113; C9803; J1815; J1956; J2405; J3490; J7512

== ENCOUNTER 2022-04-29 11:32 | Inpatient (IN) | payer MEDICARE, MEDICAID ==
[~2022-04-29] VITALS: Ht 177.8 cm; Wt 82.6 kg
[~2022-04-29 11:32] MED LIST changes: -NITR-87 MT
[2022-04-29] MEDS ORDERED: ONDANSETRON HCL 4MG/2ML INJ IV ONE (16:30)
[2022-04-29] MEDS ORDERED: ASPIRIN 81MG TABLET PO ONE (16:30)
[2022-04-29] MEDS ORDERED: PANTOPRAZOLE SODIUM 40 MG/VIAL IV ONE (17:15)
[2022-04-29] MEDS ORDERED: CEFTRIAXONE 1 G PREMIX 50 ML IV ONE (17:15)
[2022-04-29] MEDS ORDERED: METOCLOPRAMIDE HCL 10MG/2ML VIAL IV ONE (18:15)
[2022-04-29 18:48] LABS: BASOPHILS % 0.8 % (0.0-2.0); EOSINOPHILS % 2.1 % (0.0-5.0); HEMATOCRIT. 35.2 % (42.0-52.0); HEMOGLOBIN. 11.4 g/dL (14.0-18.0); LYMPHOCYTES % 21.5 % (20.0-50.0); MEAN CORPUSCULAR HEMOGLOBIN 30.6 pg (28.0-32.0); MEAN CORPUSCULAR VOLUME 94.3 fL (80.0-94.0); MEAN PLATELET VOLUME 9.2 fl (7.4-10.4); MONOCYTES % 7.8 % (2.0-8.0); NEUTROPHILS % 67.8 % (40.0-76.0); PLATELET 72 x1000/uL (130-400); RED BLOOD CELL COUNT 3.73 mill/uL (4.7-6.1); RED CELL DISTRIBUTION WIDTH 15.7 % (11.6-14.6)
[2022-04-29 18:58] LABS: INR 1.2; PARTIAL THROMBOPLASTIN TIME 25.2 sec (23.4-31.0); PROTHROMBIN TIME 12.3 sec (9.6-11.0)
[2022-04-29] MEDS ORDERED: PANTOPRAZOLE SODIUM 40 MG/VIAL IV NR (19:00)
[2022-04-29] MEDS ORDERED: ONDANSETRON HCL 4MG/2ML INJ IV NR (19:00)
[2022-04-29] MEDS ORDERED: ASPIRIN 81MG TABLET PO NR (19:00)
[2022-04-29] MEDS ORDERED: CEFTRIAXONE 1 G PREMIX 50 ML IV NR (19:00)
[2022-04-29 21:18] LABS: CHLORIDE 108 mEq/L (98-107)
[2022-04-29 22:21] LABS: CHLORIDE 108 mEq/L (98-107)
[2022-04-30] VITALS (10 sets, daily range): BP systolic 104–148; BP diastolic 48–103
[2022-04-30] MEDS ORDERED: ONDANSETRON HCL 4MG/2ML INJ IV PRN (05:45)
[2022-04-30] MEDS: DEXT 5%/0.45% NACL 1000ML 1,000 ML IV SCH (07:09)
[2022-04-30] MEDS ORDERED: PANTOPRAZOLE SODIUM 40 MG/VIAL IV SCH (09:00)
[2022-04-30] MEDS ORDERED: IOHEXOL-300 100 ML BOTTLE ONE (09:11)
[2022-04-30 10:09] LABS: HEMATOCRIT 34.7 % (42.0-52.0); HEMOGLOBIN 11.3 g/dL (14.0-18.0)
[2022-04-30] MEDS: OCTREOTIDE 1,000 MCG in SODIUM CHLORIDE 0.9% 98 ML IV SCH (16:31)
[2022-04-30] MEDS: CARVEDILOL 3.125 MG TABLET PO SCH ×2 (16:32→21:03)
[2022-04-30 17:24] LABS: BASOPHILS % 0.9 % (0.0-2.0); EOSINOPHILS % 3.1 % (0.0-5.0); HEMATOCRIT. 35.4 % (42.0-52.0); HEMOGLOBIN. 11.5 g/dL (14.0-18.0); LYMPHOCYTES % 32.8 % (20.0-50.0); MEAN CORPUSCULAR HEMOGLOBIN 30.7 pg (28.0-32.0); MEAN CORPUSCULAR VOLUME 94.4 fL (80.0-94.0); MEAN PLATELET VOLUME 9.6 fl (7.4-10.4); MONOCYTES % 9.6 % (2.0-8.0); NEUTROPHILS % 53.6 % (40.0-76.0); PLATELET 70 x1000/uL (130-400); RED BLOOD CELL COUNT 3.75 mill/uL (4.7-6.1); RED CELL DISTRIBUTION WIDTH 15.9 % (11.6-14.6)
[2022-04-30 19:59] LABS: FOLIC ACID (FOLATE) SERUM 12.6 ng/mL (>5.38)
[2022-04-30] MEDS: PANTOPRAZOLE SODIUM 40 MG/VIAL IV SCH (21:00)
[2022-04-30 21:15] LABS: CHLORIDE 109 mEq/L (98-107); TOTAL IRON BINDING CAPACITY 362 ug/dL (250-450)
[2022-05-01] VITALS (12 sets, daily range): BP systolic 121–161; BP diastolic 25–94
[2022-05-01 04:39] LABS: CHLORIDE 108 mEq/L (98-107)
[2022-05-01 04:46] LABS: INR 1.2; PROTHROMBIN TIME 12.7 sec (9.6-11.0)
[2022-05-01 05:58] LABS: BASOPHILS % 1.3 % (0.0-2.0); EOSINOPHILS % 3.5 % (0.0-5.0); HEMATOCRIT. 34.4 % (42.0-52.0); HEMOGLOBIN. 11.3 g/dL (14.0-18.0); LYMPHOCYTES % 26.3 % (20.0-50.0); MEAN CORPUSCULAR HEMOGLOBIN 30.6 pg (28.0-32.0); MEAN CORPUSCULAR VOLUME 93.3 fL (80.0-94.0); MEAN PLATELET VOLUME 10.1 fl (7.4-10.4); NEUTROPHILS % 59.9 % (40.0-76.0); PLATELET 74 x1000/uL (130-400); RED BLOOD CELL COUNT 3.68 mill/uL (4.7-6.1); RED CELL DISTRIBUTION WIDTH 15.8 % (11.6-14.6)
[2022-05-01] MEDS: OCTREOTIDE 1,000 MCG in SODIUM CHLORIDE 0.9% 98 ML IV SCH (08:38)
[2022-05-01] MEDS: PANTOPRAZOLE SODIUM 40 MG/VIAL IV SCH ×2 (08:38→21:07)
[2022-05-01] MEDS: CARVEDILOL 3.125 MG TABLET PO SCH ×2 (08:38→21:08)
[2022-05-01] MEDS ORDERED: EPHEDRINE SULFATE 50MG/ML VIAL ONE (11:53)
[2022-05-01] MEDS ORDERED: PROPOFOL 200MG/20ML VIAL IV ONE (11:53)
[2022-05-01] MEDS ORDERED: ETOMIDATE 2MG/ML 10ML VIAL IV ONE (11:57)
[2022-05-01] MEDS ORDERED: GLYCOPYRROLATE 0.2 MG/ML 2ML VIAL ONE (12:08)
[2022-05-02] VITALS (9 sets, daily range): BP systolic 132–160; BP diastolic 57–75
[2022-05-02] MEDS: DEXT 5%/0.45% NACL 1000ML 1,000 ML IV SCH (07:20)
[2022-05-02] MEDS: CARVEDILOL 3.125 MG TABLET PO SCH (08:13)
[2022-05-02] MEDS: PANTOPRAZOLE SODIUM 40 MG/VIAL IV SCH (08:13)
[2022-05-02 08:25] LABS: EOSINOPHILS % 4.6 % (0.0-5.0); HEMOGLOBIN. 10.9 g/dL (14.0-18.0); LYMPHOCYTES % 22.1 % (20.0-50.0); MEAN CORPUSCULAR HEMOGLOBIN 30.7 pg (28.0-32.0); MEAN CORPUSCULAR VOLUME 93.1 fL (80.0-94.0); MONOCYTES % 9.2 % (2.0-8.0); NEUTROPHILS % 63.1 % (40.0-76.0); PLATELET 77 x1000/uL (130-400); RED BLOOD CELL COUNT 3.54 mill/uL (4.7-6.1); RED CELL DISTRIBUTION WIDTH 15.1 % (11.6-14.6)
[2022-05-02] MEDS ORDERED: OCTREOTIDE 1,000 MCG in SODIUM CHLORIDE 0.9% 98 ML IV SCH (08:30)
[2022-05-02 08:46] LABS: CHLORIDE 106 mEq/L (98-107)
== END 2022-05-02 15:15 | disposition home or self-care (01) | DRG 432 ==
LOC: ER 11:32 → MICUSO 19:27 → EDBEDREQ 19:36 → 5EST 04-30 04:43
PROVIDERS: ADMIT Internal Medicine; ATTEND Internal Medicine
PROC: 0DB78ZX Excision of Stomach, Pylorus, Via Natural or Artificial Opening Endoscopic, Diagnostic (ICD-10-PCS; principal; 2022-05-01)
DX: K74.60 Unspecified cirrhosis of liver (principal); I85.11 Secondary esophageal varices with bleeding; K29.71 Gastritis, unspecified, with bleeding; J84.9 Interstitial pulmonary disease, unspecified; K76.6 Portal hypertension; E11.43 Type 2 diabetes mellitus with diabetic autonomic (poly)neuropathy; K43.9 Ventral hernia without obstruction or gangrene; K52.9 Noninfective gastroenteritis and colitis, unspecified; N40.0 Benign prostatic hyperplasia without lower urinary tract symptoms; Z20.822 Contact with and (suspected) exposure to COVID-19; E78.5 Hyperlipidemia, unspecified; I11.0 Hypertensive heart disease with heart failure; I50.9 Heart failure, unspecified; E78.00 Pure hypercholesterolemia, unspecified; K31.84 Gastroparesis; G70.00 Myasthenia gravis without (acute) exacerbation; F41.9 Anxiety disorder, unspecified; K31.89 Other diseases of stomach and duodenum; Z88.0 Allergy status to penicillin; Z79.899 Other long term (current) drug therapy; Z87.11 Personal history of peptic ulcer disease; Z79.84 Long term (current) use of oral hypoglycemic drugs; Z90.49 Acquired absence of other specified parts of digestive tract
CPT/HCPCS: 36415; 71045; 74177; 76700; 80048; 80053; 80076; 82607; 82728; 82746; 83540; 83550; 83880; 84484; 85014; 85018; 85025; 85044; 86850; 86900; 87426; 87804; 88305; 93005; 93306; 93976; 99291; C9113; J0696; J2354; J2405; J2704; J2765; J3490; J7050; Q9967

== ENCOUNTER 2022-05-10 07:51 | Inpatient (IN) | payer MEDICARE, MEDICAID ==
[~2022-05-10] VITALS: Ht 185.4 cm; Wt 92.5 kg
[~2022-05-10 07:51] MED LIST changes: -MELO-105 MT
[2022-05-10 12:34] LABS: BASOPHILS % 0.6 % (0.0-2.0); EOSINOPHILS % 0.1 % (0.0-5.0); HEMATOCRIT. 37.1 % (42.0-52.0); HEMOGLOBIN. 12.1 g/dL (14.0-18.0); LYMPHOCYTES % 8.7 % (20.0-50.0); MEAN CORPUSCULAR HEMOGLOBIN 30.2 pg (28.0-32.0); MEAN CORPUSCULAR VOLUME 92.8 fL (80.0-94.0); MEAN PLATELET VOLUME 8.9 fl (7.4-10.4); MONOCYTES % 6.9 % (2.0-8.0); NEUTROPHILS % 83.7 % (40.0-76.0); PLATELET 89 x1000/uL (130-400); RED CELL DISTRIBUTION WIDTH 15.3 % (11.6-14.6)
[2022-05-10] MEDS ORDERED: LEVOFLOXACIN 750MG PREMIX 150 ML IV ONE (12:45)
[2022-05-10 12:47] LABS: CHLORIDE 106 mEq/L (98-107)
[2022-05-10] MEDS ORDERED: ENOXAPARIN 100MG/ML SYR SUBCUT ONE (13:30)
[2022-05-10] MEDS ORDERED: ONDANSETRON HCL 4MG/2ML INJ IV ONE (14:45)
[2022-05-10] MEDS ORDERED: LEVOFLOXACIN 750MG PREMIX 150 ML IV NR (16:09)
[2022-05-10] MEDS: DEXT 5%/0.45% NACL 1000ML 1,000 ML IV SCH (22:37)
[2022-05-10 22:49] LABS: CHLORIDE 105 mEq/L (98-107)
[2022-05-10 22:51] LABS: HEMOGLOBIN. 12.7 g/dL (14.0-18.0); MEAN CORPUSCULAR HEMOGLOBIN 30.5 pg (28.0-32.0); MEAN CORPUSCULAR VOLUME 93.7 fL (80.0-94.0); MEAN PLATELET VOLUME 9.2 fl (7.4-10.4); PLATELET 112 x1000/uL (130-400); RED BLOOD CELL COUNT 4.16 mill/uL (4.7-6.1); RED CELL DISTRIBUTION WIDTH 15.5 % (11.6-14.6)
[2022-05-10] MEDS ORDERED: PANTOPRAZOLE 80 MG in SODIUM CHLORIDE 0.9% 100 ML IV SCH ×2 (23:00→23:15)
[2022-05-10 23:28] LABS: PLATELET ESTIMATE SLIGHTLY DECREASED
[2022-05-11] VITALS (71 sets, daily range): BP systolic 88–157; BP diastolic 24–84
[2022-05-11] MEDS ORDERED: POTASSIUM CHLORIDE INJ 40 MEQ in DEXT 5% WATER 500 ML IV ONE (00:15)
[2022-05-11] MEDS ORDERED: MORPHINE SULFATE 2 MG/ML CPJ (NOT FOR IM USE) IV PRN (00:15)
[2022-05-11] MEDS ORDERED: IPRATROPIUM/ALBUTEROL 0.5-3(2.5)MG/3ML NEB HHN PRN (00:15)
[2022-05-11] MEDS ORDERED: NALOXONE HCL 0.4MG/ML VIAL IV PRN (00:30)
[2022-05-11] MEDS: KCL 10MEQ/50ML PREMIX 50 ML IV NR ×3 (01:14→03:00)
[2022-05-11] MEDS ORDERED: CEFTRIAXONE 1 G PREMIX 50 ML IV ONE (01:30)
[2022-05-11] MEDS ORDERED: OCTREOTIDE 1,000 MCG in SODIUM CHLORIDE 0.9% 100 ML IV STA (01:30)
[2022-05-11] MEDS ORDERED: MIDAZOLAM HCL 100 MG in DEXT 5% WATER 80 ML IV PRN (02:15)
[2022-05-11] MEDS ORDERED: FENTANYL 2500MCG/250ML PMX 250 ML IV ONE (02:15)
[2022-05-11] MEDS ORDERED: MIDAZOLAM 100MG/100ML PMX 100 ML IV PRN (02:15)
[2022-05-11] MEDS ORDERED: OCTREOTIDE 1,000 MCG in SODIUM CHLORIDE 0.9% 100 ML IV NR (02:45)
[2022-05-11 02:54] LABS: HEMATOCRIT. 39.3 % (42.0-52.0); HEMOGLOBIN. 12.7 g/dL (14.0-18.0); MEAN CORPUSCULAR HEMOGLOBIN 30.4 pg (28.0-32.0); MEAN CORPUSCULAR VOLUME 94.5 fL (80.0-94.0); MEAN PLATELET VOLUME 9.9 fl (7.4-10.4); PLATELET 107 x1000/uL (130-400); RED BLOOD CELL COUNT 4.16 mill/uL (4.7-6.1); RED CELL DISTRIBUTION WIDTH 16.4 % (11.6-14.6)
[2022-05-11 02:57] LABS: CHLORIDE 107 mEq/L (98-107)
[2022-05-11 03:26] LABS: BG CARBOXYHEMOGLOBIN 0.6 % (0.5-1.5); BG DEOXYHEMOGLOBIN 0.4 % (0.0-5.0); BG FRACTION INSPIRED OXYGEN 100; BG METHEMOGLOBIN 0.5 % (0.0-1.5); BG OXYGEN SATURATION 99.6 % (92.0-98.5); BG OXYHEMOGLOBIN 98.5 % (94.0-97.0); BG PH 7.434 (7.350-7.450); BG PO2 281.7 mmHg (75.0-100.0); BG SAMPLE SITE LEFT RADIAL; BG TOTAL HEMOGLOBIN 12.6 g/dL (12.0-18.0); BG VENT MODE VENT - AC
[2022-05-11] MEDS ORDERED: NOREPINEPHRINE 8MG/250ML PMX 250 ML IV PRN (03:45)
[2022-05-11] MEDS ORDERED: NOREPINEPHRINE 8 MG in DEXTROSE 5% WATER 250 ML IV PRN (04:00)
[2022-05-11] MEDS: INSULIN LISPRO 100 UNITS/ML SUBCUT SCH ×4 (04:25→17:00)
[2022-05-11] MEDS ORDERED: DEXTROSE 50% WATER 50ML SYRINGE IV PRN (04:30)
[2022-05-11 04:46] LABS: PLATELET ESTIMATE DECREASED
[2022-05-11] MEDS: BLOOD SUGAR DIAGNOSTIC STRIP TEST SCH ×3 (06:00→17:13)
[2022-05-11] MEDS ORDERED: BLOOD SUGAR DIAGNOSTIC STRIP TEST SCH (06:30)
[2022-05-11] MEDS ORDERED: MIDAZOLAM HCL 100 MG in SODIUM CHLORIDE 0.9% 80 ML IV PRN (06:30)
[2022-05-11] MEDS ORDERED: FENTANYL 2500MCG/250ML PMX 250 ML IV PRN (07:30)
[2022-05-11] MEDS ORDERED: PANTOPRAZOLE 80 MG in SODIUM CHLORIDE 0.9% 100 ML IV SCH (09:00)
[2022-05-11] MEDS ORDERED: OCTREOTIDE 1,000 MCG in SODIUM CHLORIDE 0.9% 98 ML IV SCH ×2 (09:00→16:00)
[2022-05-11 09:25] LABS: BG BASE EXCESS 11.6 mmol/L (-2.0-2.0); BG CARBOXYHEMOGLOBIN 0.6 % (0.5-1.5); BG DEOXYHEMOGLOBIN 0.2 % (0.0-5.0); BG FRACTION INSPIRED OXYGEN 70; BG HCO3 ACT 36.2 mmol/L (22.0-26.0); BG METHEMOGLOBIN 0.4 % (0.0-1.5); BG OXYGEN SATURATION 99.8 % (92.0-98.5); BG OXYHEMOGLOBIN 98.8 % (94.0-97.0); BG PH 7.505 (7.350-7.450); BG PO2 291.2 mmHg (75.0-100.0); BG SAMPLE SITE RIGHT RADIAL; BG TOTAL HEMOGLOBIN 12.7 g/dL (12.0-18.0); BG VENT MODE VENT - AC
[2022-05-11 10:10] LABS: INR 1.2; PROTHROMBIN TIME 13.2 sec (9.6-11.0)
[2022-05-11] MEDS: DEXT 5%/0.45% NACL 1000ML 1,000 ML IV SCH (11:49)
[2022-05-11] MEDS ORDERED: PNEUMOCOCCAL 23-VAL P-SAC VAC 0.5 ML IM ONE (13:00)
[2022-05-11 13:11] LABS: BASOPHILS % 0.5 % (0.0-2.0); EOSINOPHILS % 0.5 % (0.0-5.0); HEMATOCRIT. 32.2 % (42.0-52.0); HEMOGLOBIN. 10.5 g/dL (14.0-18.0); LYMPHOCYTES % 16.6 % (20.0-50.0); MEAN CORPUSCULAR HEMOGLOBIN 30.7 pg (28.0-32.0); MEAN CORPUSCULAR VOLUME 94.7 fL (80.0-94.0); MEAN PLATELET VOLUME 9.5 fl (7.4-10.4); MONOCYTES % 11.1 % (2.0-8.0); NEUTROPHILS % 71.3 % (40.0-76.0); PLATELET 84 x1000/uL (130-400); RED BLOOD CELL COUNT 3.41 mill/uL (4.7-6.1); RED CELL DISTRIBUTION WIDTH 15.7 % (11.6-14.6)
[2022-05-11 13:46] LABS: CHLORIDE 107 mEq/L (98-107)
[2022-05-11 17:07] LABS: HEPATITIS B SURFACE ANTIGEN NEGATIVE
[2022-05-11] MEDS: PIPERACILLIN/TAZOBACTAM 3.375 G in DEXTROSE 5% WATER 50 ML IV SCH ×2 (17:15→22:34)
[2022-05-11] MEDS: NOREPINEPHRINE 32 MG in DEXT 5% WATER 218 ML IV PRN (17:58)
[2022-05-11] MEDS: CARVEDILOL 3.125 MG TABLET PO SCH (21:30)
[2022-05-11] MEDS: PANTOPRAZOLE SODIUM 40 MG/VIAL IV SCH (22:33)
[2022-05-12] VITALS (94 sets, daily range): BP systolic 87–146; BP diastolic 35–86
[2022-05-12 00:06] LABS: HEMATOCRIT 41.1 % (42.0-52.0); HEMOGLOBIN 12.1 g/dL (14.0-18.0)
[2022-05-12] MEDS: DEXT 5%/0.45% NACL 1000ML 1,000 ML IV SCH ×2 (00:56→11:26)
[2022-05-12] MEDS: INSULIN LISPRO 100 UNITS/ML SUBCUT SCH ×5 (00:58→23:06)
[2022-05-12 01:41] LABS: FOLIC ACID (FOLATE) SERUM 12.7 ng/mL (>5.38)
[2022-05-12] MEDS: BLOOD SUGAR DIAGNOSTIC STRIP TEST SCH ×4 (05:23→17:12)
[2022-05-12] MEDS: PIPERACILLIN/TAZOBACTAM 3.375 G in DEXTROSE 5% WATER 50 ML IV SCH (05:28)
[2022-05-12] MEDS: CARVEDILOL 3.125 MG TABLET PO SCH ×2 (08:42→21:00)
[2022-05-12] MEDS: PANTOPRAZOLE SODIUM 40 MG/VIAL IV SCH ×2 (09:54→21:47)
[2022-05-12 10:30] LABS: HEMATOCRIT. 31.5 % (42.0-52.0); HEMOGLOBIN. 10.2 g/dL (14.0-18.0); MEAN CORPUSCULAR HEMOGLOBIN 30.5 pg (28.0-32.0); MEAN PLATELET VOLUME 9.3 fl (7.4-10.4); PLATELET 90 x1000/uL (130-400); RED BLOOD CELL COUNT 3.35 mill/uL (4.7-6.1); RED CELL DISTRIBUTION WIDTH 15.7 % (11.6-14.6)
[2022-05-12 11:35] LABS: PLATELET ESTIMATE DECREASED
[2022-05-12 17:23] LABS: HEMATOCRIT 36.8 % (42.0-52.0); HEMOGLOBIN 11.6 g/dL (14.0-18.0)
[2022-05-12] MEDS: NOREPINEPHRINE 32 MG in DEXT 5% WATER 218 ML IV PRN (17:25)
[2022-05-12] MEDS ORDERED: PIPERACILLIN/TAZOBACTAM 3.375 G in DEXTROSE 5% WATER 50 ML IV SCH (21:00)
[2022-05-12] MEDS: CEFEPIME 1,000 MG in DEXTROSE 5% WATER 50 ML IV SCH (21:47)
[2022-05-12] MEDS: METRONIDAZOLE 500 MG PREMIX 100 ML IV SCH (22:58)
[2022-05-12 23:58] LABS: HEMATOCRIT 29.9 % (42.0-52.0); HEMOGLOBIN 9.8 g/dL (14.0-18.0)
[2022-05-13] VITALS (94 sets, daily range): BP systolic 93–145; BP diastolic 36–105
[2022-05-13] MEDS: DEXT 5%/0.45% NACL 1000ML 1,000 ML IV SCH ×2 (01:10→13:44)
[2022-05-13 05:47] LABS: BASOPHILS % 0.2 % (0.0-2.0); EOSINOPHILS % 0.3 % (0.0-5.0); HEMATOCRIT. 30.7 % (42.0-52.0); HEMOGLOBIN. 9.9 g/dL (14.0-18.0); LYMPHOCYTES % 10.1 % (20.0-50.0); MEAN CORPUSCULAR HEMOGLOBIN 30.5 pg (28.0-32.0); MEAN CORPUSCULAR VOLUME 94.3 fL (80.0-94.0); MEAN PLATELET VOLUME 9.2 fl (7.4-10.4); MONOCYTES % 13.4 % (2.0-8.0); PLATELET 62 x1000/uL (130-400); RED BLOOD CELL COUNT 3.25 mill/uL (4.7-6.1); RED CELL DISTRIBUTION WIDTH 15.9 % (11.6-14.6)
[2022-05-13] MEDS: BLOOD SUGAR DIAGNOSTIC STRIP TEST SCH ×4 (05:58→23:37)
[2022-05-13] MEDS: METRONIDAZOLE 500 MG PREMIX 100 ML IV SCH ×3 (06:05→21:10)
[2022-05-13] MEDS: INSULIN LISPRO 100 UNITS/ML SUBCUT SCH ×4 (06:06→23:38)
[2022-05-13] MEDS: CARVEDILOL 3.125 MG TABLET PO SCH ×2 (08:55→21:11)
[2022-05-13] MEDS: PANTOPRAZOLE SODIUM 40 MG/VIAL IV SCH ×2 (10:02→21:10)
[2022-05-13 11:30] LABS: CLARITY URINE CLOUDY (CLEAR); COLOR URINE YELLOW (YELLOW); KETONES URINE TRACE (NEGATIVE); LEUKOCYTE ESTERASE URINE 2+ (NEGATIVE); NITRITE URINE NEGATIVE (NEGATIVE); OCCULT BLOOD URINE 1+ (NEGATIVE); PROTEIN URINE 1+ (NEGATIVE); SPECIFIC GRAVITY URINE 1.016 (1.005-1.030); UROBILINOGEN URINE 0.2 E.U./dL (0.2-1.0)
[2022-05-13 12:37] LABS: BG BASE EXCESS 6.4 mmol/L (-2.0-2.0); BG CARBOXYHEMOGLOBIN 0.5 % (0.5-1.5); BG DEOXYHEMOGLOBIN 2.8 % (0.0-5.0); BG FRACTION INSPIRED OXYGEN 40; BG HCO3 ACT 32.9 mmol/L (22.0-26.0); BG METHEMOGLOBIN 0.4 % (0.0-1.5); BG OXYGEN SATURATION 97.2 % (92.0-98.5); BG OXYHEMOGLOBIN 96.3 % (94.0-97.0); BG PCO2 56.7 mmHg (35.0-45.0); BG PH 7.382 (7.350-7.450); BG PO2 97.8 mmHg (75.0-100.0); BG SAMPLE SITE RIGHT BRACHIAL; BG TOTAL HEMOGLOBIN 12.2 g/dL (12.0-18.0); BG VENT MODE VENT - CPAP
[2022-05-13] MEDS: CEFEPIME 1,000 MG in DEXTROSE 5% WATER 50 ML IV SCH (21:10)
[2022-05-14] VITALS (84 sets, daily range): BP systolic 80–134; BP diastolic 30–96
[2022-05-14] MEDS: METHYLPREDNISOLONE SOD SUCC 40 MG/ML VIAL IV SCH ×2 (00:33→09:10)
[2022-05-14] MEDS: DEXT 5%/0.45% NACL 1000ML 1,000 ML IV SCH (05:17)
[2022-05-14 05:30] LABS: HEMATOCRIT. 28.3 % (42.0-52.0); HEMOGLOBIN. 9.5 g/dL (14.0-18.0); MEAN CORPUSCULAR HEMOGLOBIN 31.3 pg (28.0-32.0); MEAN CORPUSCULAR VOLUME 93.5 fL (80.0-94.0); MEAN PLATELET VOLUME 9.1 fl (7.4-10.4); PLATELET 51 x1000/uL (130-400); RED BLOOD CELL COUNT 3.03 mill/uL (4.7-6.1); RED CELL DISTRIBUTION WIDTH 15.3 % (11.6-14.6)
[2022-05-14] MEDS: METRONIDAZOLE 500 MG PREMIX 100 ML IV SCH ×3 (05:55→21:01)
[2022-05-14] MEDS: INSULIN LISPRO 100 UNITS/ML SUBCUT SCH ×4 (05:56→23:22)
[2022-05-14] MEDS: BLOOD SUGAR DIAGNOSTIC STRIP TEST SCH ×4 (05:56→23:20)
[2022-05-14] MEDS: CARVEDILOL 3.125 MG TABLET PO SCH ×2 (09:00→20:32)
[2022-05-14] MEDS: PANTOPRAZOLE SODIUM 40 MG/VIAL IV SCH ×2 (09:10→20:32)
[2022-05-14 09:44] LABS: PLATELET ESTIMATE MARKEDLY DECREASED
[2022-05-14] MEDS: CEFEPIME 1,000 MG in DEXTROSE 5% WATER 50 ML IV SCH (20:32)
[2022-05-15] VITALS (73 sets, daily range): BP systolic 104–146; BP diastolic 50–92
[2022-05-15 05:24] LABS: BASOPHILS % 0.2 % (0.0-2.0); EOSINOPHILS % 0.1 % (0.0-5.0); HEMATOCRIT. 27.1 % (42.0-52.0); LYMPHOCYTES % 8.4 % (20.0-50.0); MEAN CORPUSCULAR HEMOGLOBIN 31.4 pg (28.0-32.0); MEAN CORPUSCULAR VOLUME 94.3 fL (80.0-94.0); MEAN PLATELET VOLUME 10.6 fl (7.4-10.4); MONOCYTES % 7.2 % (2.0-8.0); NEUTROPHILS % 84.1 % (40.0-76.0); RED BLOOD CELL COUNT 2.88 mill/uL (4.7-6.1); RED CELL DISTRIBUTION WIDTH 15.6 % (11.6-14.6)
[2022-05-15 05:31] LABS: CHLORIDE 112 mEq/L (98-107)
[2022-05-15] MEDS: BLOOD SUGAR DIAGNOSTIC STRIP TEST SCH ×4 (05:37→23:08)
[2022-05-15] MEDS: METRONIDAZOLE 500 MG PREMIX 100 ML IV SCH ×3 (05:40→21:24)
[2022-05-15] MEDS: INSULIN LISPRO 100 UNITS/ML SUBCUT SCH ×4 (05:43→23:12)
[2022-05-15] MEDS: PANTOPRAZOLE SODIUM 40 MG/VIAL IV SCH ×2 (07:53→20:47)
[2022-05-15] MEDS: METHYLPREDNISOLONE SOD SUCC 40 MG/ML VIAL IV SCH (07:53)
[2022-05-15] MEDS: CARVEDILOL 3.125 MG TABLET PO SCH ×2 (07:54→20:47)
[2022-05-15] MEDS: INSULIN GLARGINE 100 UNITS/ML SUBCUT SCH ×2 (09:05→21:29)
[2022-05-15 09:06] LABS: BG CARBOXYHEMOGLOBIN 0.3 % (0.5-1.5); BG DEOXYHEMOGLOBIN 1.2 % (0.0-5.0); BG FRACTION INSPIRED OXYGEN 40; BG HCO3 ACT 32.2 mmol/L (22.0-26.0); BG OXYGEN SATURATION 98.8 % (92.0-98.5); BG OXYHEMOGLOBIN 97.5 % (94.0-97.0); BG PCO2 43.5 mmHg (35.0-45.0); BG PH 7.487 (7.350-7.450); BG PO2 179.3 mmHg (75.0-100.0); BG SAMPLE SITE RIGHT RADIAL; BG TOTAL HEMOGLOBIN 10.9 g/dL (12.0-18.0); BG VENT MODE VENT - AC
[2022-05-15 09:55] LABS: PLATELET ESTIMATE MARKEDLY DECREASED
[2022-05-15 11:07] LABS: BG BASE EXCESS 7.1 mmol/L (-2.0-2.0); BG CARBOXYHEMOGLOBIN 0.3 % (0.5-1.5); BG DEOXYHEMOGLOBIN 1.3 % (0.0-5.0); BG FRACTION INSPIRED OXYGEN 40; BG HCO3 ACT 31.8 mmol/L (22.0-26.0); BG METHEMOGLOBIN 0.4 % (0.0-1.5); BG OXYGEN SATURATION 98.7 % (92.0-98.5); BG PCO2 45.8 mmHg (35.0-45.0); BG PO2 131.1 mmHg (75.0-100.0); BG SAMPLE SITE RIGHT RADIAL; BG TOTAL HEMOGLOBIN 11.5 g/dL (12.0-18.0); BG TOTAL RESPIRATORY RATE 24 b/min; BG VENT MODE VENT - CPAP
[2022-05-15] MEDS: CEFEPIME 1,000 MG in DEXTROSE 5% WATER 50 ML IV SCH (15:05)
[2022-05-16] VITALS: BP 127/89
[2022-05-16 04:00] VITALS: BP 135/72
[2022-05-16] MEDS: CEFEPIME 1,000 MG in DEXTROSE 5% WATER 50 ML IV SCH ×2 (05:01→17:20)
[2022-05-16] MEDS: BLOOD SUGAR DIAGNOSTIC STRIP TEST SCH ×4 (05:05→23:48)
[2022-05-16] MEDS: INSULIN LISPRO 100 UNITS/ML SUBCUT SCH ×4 (05:11→23:48)
[2022-05-16] MEDS: METRONIDAZOLE 500 MG PREMIX 100 ML IV SCH ×3 (05:30→21:05)
[2022-05-16 07:38] LABS: HEMATOCRIT. 30.9 % (42.0-52.0); HEMOGLOBIN. 10.2 g/dL (14.0-18.0); LYMPHOCYTES % 13.8 % (20.0-50.0); MEAN CORPUSCULAR VOLUME 93.4 fL (80.0-94.0); MEAN PLATELET VOLUME 9.4 fl (7.4-10.4); MONOCYTES % 8.2 % (2.0-8.0); PLATELET 57 x1000/uL (130-400); RED CELL DISTRIBUTION WIDTH 15.4 % (11.6-14.6)
[2022-05-16 08:00] VITALS: BP 136/68
[2022-05-16 08:01] LABS: CHLORIDE 115 mEq/L (98-107)
[2022-05-16] MEDS: CARVEDILOL 3.125 MG TABLET PO SCH ×2 (10:08→21:00)
[2022-05-16] MEDS: PANTOPRAZOLE SODIUM 40 MG/VIAL IV SCH ×2 (10:08→21:05)
[2022-05-16] MEDS: METHYLPREDNISOLONE SOD SUCC 40 MG/ML VIAL IV SCH (10:11)
[2022-05-16] MEDS: INSULIN GLARGINE 100 UNITS/ML SUBCUT SCH ×2 (10:12→21:05)
[2022-05-16 12:00] VITALS: BP 148/73
[2022-05-16 16:00] VITALS: BP 130/72
[2022-05-16 20:00] VITALS: BP 156/68
[2022-05-16] MEDS ORDERED: DEXT 5%/0.45% NACL 500ML 1,000 ML IV SCH (23:15)
[2022-05-17] VITALS (7 sets, daily range): BP systolic 108–138; BP diastolic 44–87
[2022-05-17] MEDS: DEXT 5%/0.45% NACL 1000ML 1,000 ML IV SCH ×3 (00:04→18:46)
[2022-05-17] MEDS: NITROGLYCERIN OINT 1GM/INCH UDPKT TD SCH ×5 (00:55→23:48)
[2022-05-17] MEDS: BLOOD SUGAR DIAGNOSTIC STRIP TEST SCH ×4 (05:07→23:37)
[2022-05-17] MEDS: INSULIN LISPRO 100 UNITS/ML SUBCUT SCH ×4 (05:07→23:38)
[2022-05-17 06:59] LABS: BASOPHILS % 0.1 % (0.0-2.0); HEMATOCRIT. 32.9 % (42.0-52.0); HEMOGLOBIN. 10.8 g/dL (14.0-18.0); LYMPHOCYTES % 15.2 % (20.0-50.0); MEAN CORPUSCULAR VOLUME 94.1 fL (80.0-94.0); MEAN PLATELET VOLUME 8.9 fl (7.4-10.4); MONOCYTES % 9.2 % (2.0-8.0); NEUTROPHILS % 75.5 % (40.0-76.0); PLATELET 57 x1000/uL (130-400); RED BLOOD CELL COUNT 3.49 mill/uL (4.7-6.1); RED CELL DISTRIBUTION WIDTH 15.6 % (11.6-14.6)
[2022-05-17 07:11] LABS: CHLORIDE 117 mEq/L (98-107)
[2022-05-17] MEDS: CARVEDILOL 3.125 MG TABLET PO SCH ×2 (09:00→21:00)
[2022-05-17] MEDS: PANTOPRAZOLE SODIUM 40 MG/VIAL IV SCH ×2 (09:34→22:02)
[2022-05-17] MEDS: INSULIN GLARGINE 100 UNITS/ML SUBCUT SCH ×2 (09:36→22:02)
[2022-05-18] VITALS: BP 144/50
[2022-05-18 04:00] VITALS: BP 129/66
[2022-05-18] MEDS: DEXT 5%/0.45% NACL 1000ML 1,000 ML IV SCH ×2 (05:37→17:38)
[2022-05-18] MEDS: NITROGLYCERIN OINT 1GM/INCH UDPKT TD SCH ×4 (05:37→23:55)
[2022-05-18] MEDS: BLOOD SUGAR DIAGNOSTIC STRIP TEST SCH ×4 (05:57→23:59)
[2022-05-18] MEDS: INSULIN LISPRO 100 UNITS/ML SUBCUT SCH ×4 (05:57→23:59)
[2022-05-18 06:56] LABS: EOSINOPHILS % 1.9 % (0.0-5.0); HEMATOCRIT. 31.2 % (42.0-52.0); HEMOGLOBIN. 10.2 g/dL (14.0-18.0); MEAN CORPUSCULAR HEMOGLOBIN 30.6 pg (28.0-32.0); MEAN CORPUSCULAR VOLUME 93.5 fL (80.0-94.0); MEAN PLATELET VOLUME 9.6 fl (7.4-10.4); NEUTROPHILS % 65.1 % (40.0-76.0); PLATELET 69 x1000/uL (130-400); RED BLOOD CELL COUNT 3.33 mill/uL (4.7-6.1); RED CELL DISTRIBUTION WIDTH 15.4 % (11.6-14.6)
[2022-05-18 08:00] VITALS: BP 110/56
[2022-05-18] MEDS: CARVEDILOL 3.125 MG TABLET PO SCH ×2 (09:00→20:32)
[2022-05-18] MEDS: PANTOPRAZOLE SODIUM 40 MG/VIAL IV SCH ×2 (09:42→20:52)
[2022-05-18] MEDS: INSULIN GLARGINE 100 UNITS/ML SUBCUT SCH ×2 (10:00→20:53)
[2022-05-18 10:26] LABS: CHLORIDE 118 mEq/L (98-107)
[2022-05-18 12:00] VITALS: BP 143/51
[2022-05-18 16:00] VITALS: BP 130/50
[2022-05-18 20:00] VITALS: BP 135/50
[2022-05-19] VITALS: BP 139/69
[2022-05-19 04:00] VITALS: BP 149/62
[2022-05-19] MEDS: NITROGLYCERIN OINT 1GM/INCH UDPKT TD SCH ×3 (05:01→18:37)
[2022-05-19] MEDS: INSULIN LISPRO 100 UNITS/ML SUBCUT SCH ×3 (05:08→18:37)
[2022-05-19] MEDS: BLOOD SUGAR DIAGNOSTIC STRIP TEST SCH ×3 (05:08→17:38)
[2022-05-19 07:19] LABS: BASOPHILS % 0.3 % (0.0-2.0); EOSINOPHILS % 3.3 % (0.0-5.0); HEMATOCRIT. 35.1 % (42.0-52.0); HEMOGLOBIN. 10.9 g/dL (14.0-18.0); LYMPHOCYTES % 23.9 % (20.0-50.0); MEAN CORPUSCULAR HEMOGLOBIN 30.8 pg (28.0-32.0); MEAN CORPUSCULAR VOLUME 99.2 fL (80.0-94.0); MEAN PLATELET VOLUME 6.7 fl (7.4-10.4); MONOCYTES % 6.1 % (2.0-8.0); NEUTROPHILS % 66.4 % (40.0-76.0); RED BLOOD CELL COUNT 3.54 mill/uL (4.7-6.1); RED CELL DISTRIBUTION WIDTH 16.4 % (11.6-14.6)
[2022-05-19 08:00] VITALS: BP 124/70
[2022-05-19 08:00] LABS: CHLORIDE 115 mEq/L (98-107)
[2022-05-19 08:04] LABS: PLATELET 25 x1000/uL (130-400)
[2022-05-19] MEDS: PANTOPRAZOLE SODIUM 40 MG/VIAL IV SCH (09:57)
[2022-05-19] MEDS: DEXT 5%/0.45% NACL 1000ML 1,000 ML IV SCH (09:58)
[2022-05-19] MEDS: CARVEDILOL 3.125 MG TABLET PO SCH (09:58)
[2022-05-19] MEDS: INSULIN GLARGINE 100 UNITS/ML SUBCUT SCH (09:59)
[2022-05-19 12:00] VITALS: BP 125/65
[2022-05-19 16:00] VITALS: BP 138/60
[2022-05-19 17:00] VITALS: BP 125/65
[2022-05-20 10:04] LABS: PLATELET 25 x1000/uL (130-400)
== END 2022-05-19 20:50 | DRG 208 ==
LOC: ER 07:56 → MICUSO 13:25 → EDBEDREQSVC 22:14 → 7EST 05-15 17:57
PROVIDERS: ADMIT Internal Medicine; ATTEND Internal Medicine
PROC: 0BH17EZ Insertion of Endotracheal Airway into Trachea, Via Natural or Artificial Opening (ICD-10-PCS; principal; 2022-05-11)
PROC: 5A1945Z Respiratory Ventilation, 24-96 Consecutive Hours (ICD-10-PCS; 2022-05-11)
DX: U07.1 COVID-19 (principal); J96.20 Acute and chronic respiratory failure, unspecified whether with hypoxia or hypercapnia; J18.9 Pneumonia, unspecified organism; N17.0 Acute kidney failure with tubular necrosis; I50.30 Unspecified diastolic (congestive) heart failure; K92.2 Gastrointestinal hemorrhage, unspecified; K74.60 Unspecified cirrhosis of liver; K31.84 Gastroparesis; D69.6 Thrombocytopenia, unspecified; D64.9 Anemia, unspecified; E11.43 Type 2 diabetes mellitus with diabetic autonomic (poly)neuropathy; N40.0 Benign prostatic hyperplasia without lower urinary tract symptoms; I11.0 Hypertensive heart disease with heart failure; E78.00 Pure hypercholesterolemia, unspecified; Z82.49 Family history of ischemic heart disease and other diseases of the circulatory system; Z90.49 Acquired absence of other specified parts of digestive tract; Z87.11 Personal history of peptic ulcer disease; Z88.0 Allergy status to penicillin; Z78.9 Other specified health status
CPT/HCPCS: 31500; 36415; 36600; 71045; 80048; 80053; 81003; 82270; 82375; 82607; 82728; 82746; 82805; 82962; 83540; 83880; 84484; 85014; 85018; 85025; 85044; 85049; 86705; 86709; 86803; 87340; 87426; 90732; 92610; 93005; 93970; 94003; 97162; 99291; A6261; C9113; C9803; J0692; J0696; J1815; J1956; J2270; J2354; J2405; J2543; J2920; J3010; J3480; J3490; J7050; J7060; A4315

== ENCOUNTER 2022-08-05 11:52 | Inpatient (IN) | payer MEDICARE, MEDICAID ==
[~2022-08-05] VITALS: Ht 180.3 cm; Wt 85.7 kg
[2022-08-05 14:53] LABS: BASOPHILS % 0.9 % (0.0-2.0); EOSINOPHILS % 2.6 % (0.0-5.0); HEMATOCRIT. 30.2 % (42.0-52.0); HEMOGLOBIN. 9.9 g/dL (14.0-18.0); LYMPHOCYTES % 32.5 % (20.0-50.0); MEAN CORPUSCULAR HEMOGLOBIN 29.3 pg (28.0-32.0); MEAN CORPUSCULAR VOLUME 89.2 fL (80.0-94.0); MEAN PLATELET VOLUME 9.4 fl (7.4-10.4); MONOCYTES % 10.2 % (2.0-8.0); NEUTROPHILS % 53.8 % (40.0-76.0); PLATELET 101 x1000/uL (130-400); RED BLOOD CELL COUNT 3.38 mill/uL (4.7-6.1); RED CELL DISTRIBUTION WIDTH 16.5 % (11.6-14.6)
[2022-08-05 15:05] LABS: CHLORIDE 103 mEq/L (98-107)
[2022-08-06 02:52] VITALS: BP 148/62
[2022-08-06 08:00] VITALS: BP 132/65
[2022-08-06] MEDS: ENOXAPARIN 40MG/0.4ML SYR SUBCUT SCH (09:36)
[2022-08-06] MEDS: ASPIRIN 81MG TABLET PO SCH (09:37)
[2022-08-06 12:00] VITALS: BP 152/59
[2022-08-06] MEDS ORDERED: ONDANSETRON HCL 4MG/2ML INJ IV PRN (14:00)
[2022-08-06] MEDS ORDERED: IPRATROPIUM/ALBUTEROL 0.5-3(2.5)MG/3ML NEB HHN PRN (14:00)
[2022-08-06] MEDS ORDERED: ACETAMINOPHEN 325MG TABLET PO PRN (14:00)
[2022-08-06] MEDS ORDERED: ALBUTEROL (0.083%) 2.5MG/3ML NEB HHN PRN (14:15)
[2022-08-06] MEDS ORDERED: IPRATROPIUM BROMIDE (0.02%) 0.5MG/2.5ML NEB HHN PRN (14:15)
[2022-08-06 16:00] VITALS: BP 148/57
[2022-08-06] MEDS ORDERED: DEXTROSE 50% WATER 50ML SYRINGE IV PRN (16:30)
[2022-08-06] MEDS: AZATHIOPRINE 50MG TABLET PO SCH (17:05)
[2022-08-06] MEDS: TAMSULOSIN HCL 0.4MG SR CAPSULE PO SCH (17:05)
[2022-08-06] MEDS: PYRIDOSTIGMINE BROMIDE 60MG TABLET PO SCH ×2 (17:05→21:36)
[2022-08-06] MEDS: BLOOD SUGAR DIAGNOSTIC STRIP TEST SCH ×2 (17:34→21:35)
[2022-08-06] MEDS: INSULIN LISPRO 100 UNITS/ML SUBCUT SCH ×2 (17:36→21:37)
[2022-08-06 20:00] VITALS: BP 143/59
[2022-08-06] MEDS ORDERED: ATORVASTATIN CALCIUM 20MG TABLET PO SCH (21:00)
[2022-08-07] VITALS: BP 152/63
[2022-08-07 04:00] VITALS: BP 139/68
[2022-08-07] MEDS: BLOOD SUGAR DIAGNOSTIC STRIP TEST SCH ×2 (07:40→12:40)
[2022-08-07] MEDS: INSULIN LISPRO 100 UNITS/ML SUBCUT SCH ×2 (08:10→13:07)
[2022-08-07] MEDS: TAMSULOSIN HCL 0.4MG SR CAPSULE PO SCH (08:36)
[2022-08-07] MEDS: ASPIRIN 81MG TABLET PO SCH (08:36)
[2022-08-07] MEDS: PYRIDOSTIGMINE BROMIDE 60MG TABLET PO SCH ×2 (08:36→13:06)
[2022-08-07] MEDS: AZATHIOPRINE 50MG TABLET PO SCH (08:36)
[2022-08-07] MEDS: ENOXAPARIN 40MG/0.4ML SYR SUBCUT SCH (08:37)
[2022-08-07 12:52] VITALS: BP 143/46
[2022-08-07 13:45] VITALS: BP 143/46
[2022-08-07 16:27] LABS: BASOPHILS % 0.5 % (0.0-2.0); EOSINOPHILS % 1.9 % (0.0-5.0); HEMATOCRIT. 32.8 % (42.0-52.0); HEMOGLOBIN. 10.5 g/dL (14.0-18.0); LYMPHOCYTES % 21.7 % (20.0-50.0); MEAN CORPUSCULAR HEMOGLOBIN 29.2 pg (28.0-32.0); MEAN CORPUSCULAR VOLUME 90.8 fL (80.0-94.0); MEAN PLATELET VOLUME 9.2 fl (7.4-10.4); MONOCYTES % 11.2 % (2.0-8.0); NEUTROPHILS % 64.7 % (40.0-76.0); PLATELET 79 x1000/uL (130-400); RED BLOOD CELL COUNT 3.61 mill/uL (4.7-6.1)
[2022-08-07 16:36] LABS: CHLORIDE 103 mEq/L (98-107)
== END 2022-08-07 15:45 | disposition home or self-care (01) | DRG 392 ==
LOC: ER 11:52 → 7WST 19:13 → EDBEDREQ 19:31 → EDBEDREQTM 19:31
PROVIDERS: ADMIT Internal Medicine; ATTEND Internal Medicine
DX: K52.9 Noninfective gastroenteritis and colitis, unspecified (principal); E44.1 Mild protein-calorie malnutrition; I11.0 Hypertensive heart disease with heart failure; E78.00 Pure hypercholesterolemia, unspecified; N40.0 Benign prostatic hyperplasia without lower urinary tract symptoms; K74.60 Unspecified cirrhosis of liver; E11.9 Type 2 diabetes mellitus without complications; I50.9 Heart failure, unspecified; F41.9 Anxiety disorder, unspecified; Z20.822 Contact with and (suspected) exposure to COVID-19; D64.9 Anemia, unspecified; Z88.0 Allergy status to penicillin; G70.00 Myasthenia gravis without (acute) exacerbation
CPT/HCPCS: 36415; 71045; 74176; 80053; 82962; 83036; 83880; 84484; 85025; 87426; 87804; 93005; 99285; C9803; J1650; J1815; J7500

== ENCOUNTER 2022-11-04 15:45 | Emergency (ER) | payer MEDICARE, MEDICAID ==
[~2022-11-04] VITALS: Ht 182.9 cm; Wt 91.0 kg
[2022-11-04 16:17] LABS: EOSINOPHILS % 1.5 % (0.0-5.0); HEMATOCRIT. 28.3 % (42.0-52.0); HEMOGLOBIN. 9.1 g/dL (14.0-18.0); LYMPHOCYTES % 26.4 % (20.0-50.0); MEAN CORPUSCULAR HEMOGLOBIN 28.9 pg (28.0-32.0); MEAN CORPUSCULAR VOLUME 89.8 fL (80.0-94.0); MEAN PLATELET VOLUME 9.7 fl (7.4-10.4); MONOCYTES % 9.5 % (2.0-8.0); NEUTROPHILS % 61.6 % (40.0-76.0); PLATELET 55 x1000/uL (130-400); RED BLOOD CELL COUNT 3.16 mill/uL (4.7-6.1); RED CELL DISTRIBUTION WIDTH 18.6 % (11.6-14.6)
[2022-11-04 16:32] LABS: CHLORIDE 109 mEq/L (98-107)
[2022-11-04 18:31] VITALS: BP 135/96
== END 2022-11-04 20:54 | disposition left against medical advice (07) ==
LOC: ER 15:45
DX: Z53.21 Procedure and treatment not carried out due to patient leaving prior to being seen by health care provider (principal); I49.9 Cardiac arrhythmia, unspecified
CPT/HCPCS: 36415; 80053; 84484; 85025; 93005; 99281

== ENCOUNTER 2024-03-31 02:49 | Inpatient (IN) | payer MEDICARE, MEDICAID ==
[2024-03-31] VITALS (77 sets, daily range): BP systolic 49–152; BP diastolic 31–134; PULSE 86–116; RESP 15–36; TEMP 36.3918–36.8072; O2SAT 9–100
[~2024-03-31] VITALS: Ht 182.9 cm; Wt 66.7 kg
[~2024-03-31 02:49] MED LIST changes: +ONDA-239 PO; -ONDA4TAB11 PO; +PYRI60TA PO; -PYRI60TA10 PO
[2024-03-31] MEDS: NOREPINEPHRINE 8MG/250ML PMX 250 ML IV STA (03:47)
[2024-03-31] MEDS: SODIUM CHLORIDE 0.9% (SEPSIS BOLUS) IV ONE (03:47)
[2024-03-31 03:52] LABS: HEMATOCRIT. 32.1 % (42.0-52.0); HEMOGLOBIN. 10.1 g/dL (14.0-18.0); MEAN CORPUSCULAR HEMOGLOBIN 31.2 pg (28.0-32.0); MEAN CORPUSCULAR HGB CONC 31.5 g/dL (31.0-37.0); MEAN CORPUSCULAR VOLUME 99.1 fL (80.0-94.0); MEAN PLATELET VOLUME 10.9 fl (7.4-10.4); PLATELET 62 x1000/uL (130-400); RED BLOOD CELL COUNT 3.23 mill/uL (4.7-6.1); WHITE BLOOD COUNT 4.1 x1000/uL (4.5-11.0)
[2024-03-31] MEDS: ONDANSETRON HCL 4MG/2ML INJ IV STA (03:55)
[2024-03-31] MEDS: AZTREONAM 1 G in DEXTROSE 5% WATER 50 ML IV STA (03:55)
[2024-03-31 04:04] LABS: CHLORIDE 111 mEq/L (98-107); POTASSIUM 3.9 mEq/L (3.5-5.1); SODIUM 150 mEq/L (136-145)
[2024-03-31 04:05] LABS: CALCIUM 9.4 mg/dL (8.7-10.4); CARBON DIOXIDE 32 mEq/L (21-32)
[2024-03-31 04:10] LABS: GLUCOSE 131 mg/dL (70-105); UREA NITROGEN BLOOD 48 mg/dL (9-23)
[2024-03-31 04:12] LABS: ALANINE AMINOTRANSFERASE 25 IU/L (10-49); ALBUMIN 2.1 g/dL (3.2-4.8); ASPARTATE AMINOTRANSFERASE 22 IU/L (<34); BILIRUBIN DIRECT 0.2 mg/dL (<=3.0); BILIRUBIN TOTAL 0.5 mg/dL (0.1-1.0); PROTEIN TOTAL 5.9 g/dL (6.0-8.3)
[2024-03-31 04:14] LABS: DIFFERENTIAL COMMENT 1
[2024-03-31 04:21] LABS: INR 1.5; PROTHROMBIN TIME 16.6 sec (9.6-11.0)
[2024-03-31 04:36] LABS: CREATININE 2.1 mg/dL (0.6-1.3)
[2024-03-31 04:37] LABS: LACTIC ACID 5.2 mmol/L (0.4-2.0); TROPONIN I HIGH SENSITIVITY 110 ng/L (3.0-53)
[2024-03-31 04:44] LABS: BG BASE EXCESS 0.7 mmol/L (-2.0-3.0); BG CARBOXYHEMOGLOBIN 1.2 % (0.5-1.5); BG FRACTION INSPIRED OXYGEN 70; BG HCO3 ACT 28.1 mmol/L (21.0-28.0); BG METHEMOGLOBIN 0.3 % (0.5-1.5); BG OXYGEN SATURATION 91.9 % (94.0-98.0); BG OXYHEMOGLOBIN 90.5 % (94.0-98.0); BG PCO2 58.5 mmHg (35.0-48.0); BG PH 7.299 (7.350-7.450); BG PO2 67.2 mmHg (83.0-108.0); BG SAMPLE SITE RIGHT RADIAL; BG TOTAL HEMOGLOBIN 11.7 g/dL (13.5-17.5); BG VENT MODE VENT - AC
[2024-03-31] MEDS: VANCOMYCIN 1G PREMIX 200 ML IV ONE (04:59)
[2024-03-31 05:58] LABS: TROPONIN I HIGH SENSITIVITY 123 ng/L (3.0-53)
[2024-03-31 06:34] LABS: PLATELET ESTIMATE DECREASED; TOXIC VACUOLATION 1+
[2024-03-31 06:35] LABS: ANISOCYTOSIS 1+
[2024-03-31 07:23] LABS: CLARITY URINE TURBID (CLEAR); COLOR URINE DARK YELLOW (YELLOW); GLUCOSE URINE NEGATIVE (NEGATIVE); KETONES URINE NEGATIVE (NEGATIVE); LEUKOCYTE ESTERASE URINE 1+ (NEGATIVE); NITRITE URINE POSITIVE (NEGATIVE); OCCULT BLOOD URINE 3+ (NEGATIVE); PROTEIN URINE 2+ (NEGATIVE); SPECIFIC GRAVITY URINE 1.026 (1.005-1.030)
[2024-03-31] MEDS ORDERED: ONDANSETRON HCL 4MG/2ML INJ IV PRN (07:30)
[2024-03-31] MEDS ORDERED: ACETAMINOPHEN 650MG SUPP PR PRN (07:30)
[2024-03-31] MEDS ORDERED: CLONIDINE 0.1MG TABLET PO PRN (07:30)
[2024-03-31 08:25] LABS: SQUAMOUS EPITHELIAL CELL URINE 2+ /lpf (RARE/1+)
[2024-03-31 08:26] LABS: RBC URINE TNTC /hpf (0-2)
[2024-03-31 08:28] LABS: BACTERIA URINE 4+
[2024-03-31 08:29] LABS: CALCIUM OXALATE CRYSTALS URINE 1+ /lpf
[2024-03-31] MEDS: IPRATROPIUM/ALBUTEROL 0.5-3(2.5)MG/3ML NEB HHN SCH (08:51)
[2024-03-31] MEDS: ACETYLCYSTEINE 200MG/ML 20% VIAL 4ML INH SCH (08:51)
[2024-03-31 08:59] LABS: BG CARBOXYHEMOGLOBIN 0.5 % (0.5-1.5); BG DEOXYHEMOGLOBIN 10.3 % (0.0-5.0); BG FRACTION INSPIRED OXYGEN 70; BG HCO3 ACT 31.4 mmol/L (21.0-28.0); BG METHEMOGLOBIN 0.3 % (0.5-1.5); BG OXYGEN SATURATION 89.6 % (94.0-98.0); BG OXYHEMOGLOBIN 88.9 % (94.0-98.0); BG PCO2 67.2 mmHg (35.0-48.0); BG PH 7.288 (7.350-7.450); BG PO2 59.5 mmHg (83.0-108.0); BG TOTAL HEMOGLOBIN 13.1 g/dL (13.5-17.5)
[2024-03-31] MEDS: DEXTROSE 5% WATER 1,000 ML IV SCH (10:47)
[2024-03-31] MEDS: HYDROCORTISONE SOD SUCCINATE 100 MG/2 ML VIAL IV SCH (10:47)
[2024-03-31] MEDS: VANCOMYCIN 750MG PMX (XELLIA) 150 ML IV NR (10:48)
[2024-03-31] MEDS: AZITHROMYCIN 500MG/250ML 250 ML IV SCH (10:48)
[2024-03-31] MEDS ORDERED: NOREPINEPHRINE 8MG/250ML PMX 250 ML IV PRN (11:00)
[2024-03-31] MEDS ORDERED: FENTANYL 2500MCG/250ML PMX 250 ML IV PRN (11:30)
[2024-03-31] MEDS ORDERED: FENTANYL CITRATE/PF 2,500 MCG in SODIUM CHLORIDE 0.9% 250 ML IV PRN (11:30)
[2024-03-31] MEDS ORDERED: PROPOFOL 10MG/ML 100ML 100 ML IV PRN (11:30)
[2024-03-31] MEDS: FAMOTIDINE 20MG/2ML VIAL IV SCH (13:52)
[2024-03-31] MEDS: METOCLOPRAMIDE HCL 10MG/2ML VIAL IV SCH (13:52)
[2024-03-31] MEDS: DEXTROSE 50% WATER 50ML SYRINGE IV PRN (13:52)
[2024-03-31] MEDS: BLOOD SUGAR DIAGNOSTIC STRIP TEST SCH (13:53)
[2024-03-31 14:22] LABS: BG BASE EXCESS 1.9 mmol/L (-2.0-3.0); BG DEOXYHEMOGLOBIN 4.8 % (0.0-5.0); BG FRACTION INSPIRED OXYGEN 100; BG HCO3 ACT 31.7 mmol/L (21.0-28.0); BG OXYGEN SATURATION 95.2 % (94.0-98.0); BG OXYHEMOGLOBIN 94.2 % (94.0-98.0); BG PCO2 79.9 mmHg (35.0-48.0); BG PH 7.217 (7.350-7.450); BG SAMPLE SITE RIGHT BRACHIAL; BG TOTAL HEMOGLOBIN 12.5 g/dL (13.5-17.5); BG VENT MODE VENT - AC
[2024-03-31] MEDS: NOREPINEPHRINE 8MG/250ML PMX 250 ML IV PRN (14:24)
[2024-03-31] MEDS: LACTATED RINGERS 500 ML IV ONE ×2 (15:00→18:21)
[2024-03-31] MEDS: FENTANYL CITRATE/PF 2,500 MCG in SODIUM CHLORIDE 0.9% 200 ML IV PRN (15:00)
[2024-03-31] MEDS ORDERED: AZTREONAM 1 G in DEXTROSE 5% WATER 50 ML IV SCH (16:00)
[2024-03-31 16:55] LABS: BG BASE EXCESS -0.9 mmol/L (-2.0-3.0); BG CARBOXYHEMOGLOBIN 0.4 % (0.5-1.5); BG FRACTION INSPIRED OXYGEN 80; BG HCO3 ACT 27.5 mmol/L (21.0-28.0); BG METHEMOGLOBIN 0.3 % (0.5-1.5); BG OXYGEN SATURATION 91.9 % (94.0-98.0); BG OXYHEMOGLOBIN 91.3 % (94.0-98.0); BG PCO2 64.3 mmHg (35.0-48.0); BG PH 7.249 (7.350-7.450); BG PO2 67.5 mmHg (83.0-108.0); BG SAMPLE SITE RIGHT BRACHIAL; BG TOTAL HEMOGLOBIN 12.1 g/dL (13.5-17.5); BG VENT MODE VENT - AC
[2024-03-31 17:11] LABS: TROPONIN I HIGH SENSITIVITY 102 ng/L (3.0-53)
[2024-03-31] MEDS: AZTREONAM 2GM in DEXTROSE 5% WATER 100ML IV SCH (17:32)
[2024-03-31 19:52] LABS: BG BASE EXCESS -4.4 mmol/L (-2.0-3.0); BG DEOXYHEMOGLOBIN 13.7 % (0.0-5.0); BG FRACTION INSPIRED OXYGEN 80; BG HCO3 ACT 23.9 mmol/L (21.0-28.0); BG METHEMOGLOBIN 0.4 % (0.5-1.5); BG OXYGEN SATURATION 86.2 % (94.0-98.0); BG OXYHEMOGLOBIN 85.9 % (94.0-98.0); BG PCO2 58.3 mmHg (35.0-48.0); BG PO2 55.2 mmHg (83.0-108.0); BG SAMPLE SITE RIGHT BRACHIAL; BG VENT MODE VENT - AC
[2024-03-31] MEDS ORDERED: DEXT 10% WATER 1,000 ML IV SCH (20:45)
[2024-03-31] MEDS: METRONIDAZOLE 500MG TABLET PO SCH (21:10)
[2024-03-31] MEDS: DEXT 10% WATER 1,000 ML IV SCH (21:16)
[2024-03-31] MEDS ORDERED: PHENYLEPHRINE 50MG/250ML PMX 250 ML IV PRN ×2 (22:00→22:15)
[2024-03-31] MEDS: NOREPINEPHRINE 32 MG in DEXT 5% WATER 218 ML IV PRN (22:46)
[2024-03-31] MEDS: PHENYLEPHRINE 100 MG in DEXT 5% WATER 250 ML IV PRN (22:50)
[2024-04-01] VITALS (87 sets, daily range): BP systolic 78–124; BP diastolic 46–95; PULSE 64–147; RESP 0–39; TEMP 35.66952–36.89184; O2SAT 96–100
[2024-04-01 00:32] LABS: TROPONIN I HIGH SENSITIVITY 95 ng/L (3.0-53)
[2024-04-01 06:14] LABS: CHLORIDE 106 mEq/L (98-107); POTASSIUM 4.1 mEq/L (3.5-5.1); SODIUM 140 mEq/L (136-145)
[2024-04-01 06:15] LABS: CALCIUM 8.9 mg/dL (8.7-10.4); CARBON DIOXIDE 26 mEq/L (21-32); HEMATOCRIT. 35.1 % (42.0-52.0); HEMOGLOBIN. 11.2 g/dL (14.0-18.0); MEAN PLATELET VOLUME 11.9 fl (7.4-10.4); RED BLOOD CELL COUNT 3.62 mill/uL (4.7-6.1); RED CELL DISTRIBUTION WIDTH 16.3 % (11.6-14.6)
[2024-04-01 06:19] LABS: IRON 19 ug/dL (65-175)
[2024-04-01 06:20] LABS: CREATININE 2.5 mg/dL (0.6-1.3); FERRITIN 366 ng/mL (22-322); GLUCOSE 167 mg/dL (70-105); THYROID STIMULATING HORMONE 0.79 uIU/mL (0.55-4.78); TRIGLYCERIDE 87 mg/dL (0-150); UREA NITROGEN BLOOD 66 mg/dL (9-23)
[2024-04-01 06:22] LABS: FOLIC ACID (FOLATE) SERUM 12.41 ng/mL (>5.38); TOTAL IRON BINDING CAPACITY 476 ug/dl (250-425)
[2024-04-01 06:46] LABS: TROPONIN I HIGH SENSITIVITY 98 ng/L (3.0-53)
[2024-04-01 06:53] LABS: DIFFERENTIAL COMMENT 1
[2024-04-01 07:02] LABS: PLATELET 25 x1000/uL (130-400)
[2024-04-01 07:26] LABS: VITAMIN B12 SERUM 3765 pg/mL (211-911)
[2024-04-01] MEDS ORDERED: AZITHROMYCIN 500MG/250ML 250 ML IV SCH (08:00)
[2024-04-01 08:46] LABS: BG BASE EXCESS -2.7 mmol/L (-2.0-3.0); BG CARBOXYHEMOGLOBIN 0.3 % (0.5-1.5); BG DEOXYHEMOGLOBIN 1.4 % (0.0-5.0); BG HCO3 ACT 25.5 mmol/L (21.0-28.0); BG METHEMOGLOBIN 0.1 % (0.5-1.5); BG OXYGEN SATURATION 98.6 % (94.0-98.0); BG OXYHEMOGLOBIN 98.2 % (94.0-98.0); BG PCO2 60.3 mmHg (35.0-48.0); BG PH 7.244 (7.350-7.450); BG SAMPLE SITE RIGHT RADIAL; BG TOTAL HEMOGLOBIN 12.1 g/dL (13.5-17.5); BG VENT MODE VENT - P/C
[2024-04-01] MEDS: FUROSEMIDE 20MG/2ML VIAL IVP NR (09:56)
[2024-04-01] MEDS: MAGNESIUM 2 G PREMIX 50 ML IV NR (09:56)
[2024-04-01] MEDS: AMIODARONE 150MG/100ML D5W 100 ML IV NR (12:45)
[2024-04-01] MEDS: DEXT 5%/LACTATED RINGERS 1,000 ML IV SCH (12:46)
[2024-04-01] MEDS: IPRATROPIUM/ALBUTEROL 0.5-3(2.5)MG/3ML NEB HHN SCH (12:52)
[2024-04-01] MEDS: AMIODARONE HCL 900 MG in DEXT 5% WATER 482 ML IV SCH (14:01)
[2024-04-01] MEDS: DOXYCYCLINE HYCLATE 100MG CAPSULE PO SCH (21:00)
[2024-04-01 21:04] LABS: PLATELET ESTIMATE MARKEDLY DECREASED
[2024-04-01 21:05] LABS: ANISOCYTOSIS 1+; TOXIC VACUOLATION 1+
[2024-04-02] VITALS (79 sets, daily range): BP systolic 81–121; BP diastolic 39–76; PULSE 64–100; RESP 20–34; TEMP 36.3918–36.6696; O2SAT 89–100
[2024-04-02] MEDS: DEXT 10% WATER 1,000 ML IV SCH (01:45)
[2024-04-02 05:32] LABS: HEMATOCRIT. 34.4 % (42.0-52.0); HEMOGLOBIN. 10.5 g/dL (14.0-18.0); MEAN CORPUSCULAR HEMOGLOBIN 31.1 pg (28.0-32.0); MEAN CORPUSCULAR HGB CONC 30.5 g/dL (31.0-37.0); MEAN CORPUSCULAR VOLUME 102.2 fL (80.0-94.0); MEAN PLATELET VOLUME 10.3 fl (7.4-10.4); RED BLOOD CELL COUNT 3.37 mill/uL (4.7-6.1); RED CELL DISTRIBUTION WIDTH 17.5 % (11.6-14.6); WHITE BLOOD COUNT 9.8 x1000/uL (4.5-11.0)
[2024-04-02 05:35] LABS: AMMONIA 121 uMol/L (<32)
[2024-04-02 05:41] LABS: CARBON DIOXIDE 23 mEq/L (21-32); CHLORIDE 102 mEq/L (98-107); POTASSIUM 5.3 mEq/L (3.5-5.1); SODIUM 135 mEq/L (136-145)
[2024-04-02 05:42] LABS: CALCIUM 8.7 mg/dL (8.7-10.4)
[2024-04-02 05:47] LABS: ALANINE AMINOTRANSFERASE 41 IU/L (10-49); GLUCOSE 169 mg/dL (70-105); INR 1.7; UREA NITROGEN BLOOD 76 mg/dL (9-23)
[2024-04-02 05:49] LABS: ASPARTATE AMINOTRANSFERASE 99 IU/L (<34); BILIRUBIN DIRECT 0.6 mg/dL (<=3.0); BILIRUBIN TOTAL 0.9 mg/dL (0.1-1.0); PHOSPHORUS 7.4 mg/dL (2.5-4.9); PROTEIN TOTAL 5.4 g/dL (6.0-8.3)
[2024-04-02 06:52] LABS: DIFFERENTIAL COMMENT 1; PLATELET 14 x1000/uL (130-400)
[2024-04-02] MEDS: LANTHANUM CARBONATE 500MG CHEW TABLET PO SCH (09:05)
[2024-04-02] MEDS: SODIUM POLYSTYRENE SULFONATE 15 G/60 ML BOT PO NR (09:05)
[2024-04-02] MEDS: VANCOMYCIN 1GM/200ML PMX (BAXTER) IV NR (11:28)
[2024-04-02] MEDS: LACTULOSE 20G/30ML UDC PO SCH (14:45)
[2024-04-02 15:21] LABS: NUCLEATED RED BLOOD CELLS 1 /100 WBC
[2024-04-02 15:22] LABS: ANISOCYTOSIS 1+; PLATELET ESTIMATE MARKEDLY DECREASED
[2024-04-02] MEDS: INSULIN LISPRO 100 UNITS/ML SUBCUT SCH (17:00)
[2024-04-03] VITALS (52 sets, daily range): BP systolic 72–153; BP diastolic 47–101; PULSE 0–115; RESP 0–34; TEMP 36.114–36.6696; O2SAT 92–95
[2024-04-03] MEDS ORDERED: ATROPINE SULFATE 1MG/10ML SYR IV PRN (00:30)
[2024-04-03] MEDS: INSULIN LISPRO 100 UNITS/ML SUBCUT SCH (00:59)
[2024-04-03] MEDS: BLOOD SUGAR DIAGNOSTIC STRIP TEST SCH (00:59)
[2024-04-03] MEDS: VASOPRESSIN 20 UNIT in SODIUM CHLORIDE 0.9% 99 ML IV PRN (01:00)
[2024-04-03 02:46] LABS: CHLORIDE 100 mEq/L (98-107); POTASSIUM 5.2 mEq/L (3.5-5.1); SODIUM 130 mEq/L (136-145)
[2024-04-03 02:47] LABS: CALCIUM 8.3 mg/dL (8.7-10.4); CARBON DIOXIDE 19 mEq/L (21-32)
[2024-04-03 02:52] LABS: CREATININE 3.1 mg/dL (0.6-1.3); UREA NITROGEN BLOOD 76 mg/dL (9-23)
[2024-04-03 02:54] LABS: ALANINE AMINOTRANSFERASE 154 IU/L (10-49); ALBUMIN 1.6 g/dL (3.2-4.8); ASPARTATE AMINOTRANSFERASE 217 IU/L (<34); BILIRUBIN TOTAL 1.1 mg/dL (0.1-1.0); PROTEIN TOTAL 4.7 g/dL (6.0-8.3)
[2024-04-03 03:23] LABS: GLUCOSE 332 mg/dL (70-105)
[2024-04-03] MEDS: FUROSEMIDE 40MG/4ML VIAL IVP NR (03:45)
[2024-04-03] MEDS: SODIUM POLYSTYRENE SULFONATE 15 G/60 ML BOT PO NR (04:18)
[2024-04-03] MEDS: DEXT 10% WATER 1,000 ML IV SCH (04:19)
[2024-04-03] MEDS: EPINEPHRINE 5 MG in SODIUM CHLORIDE 0.9% 245 ML IV PRN (04:28)
[2024-04-03] MEDS: NOREPINEPHRINE 32 MG in SODIUM CHLORIDE 0.9% 218 ML IV PRN (04:39)
[2024-04-03] MEDS: PHENYLEPHRINE 100 MG in SODIUM CHLORIDE 0.9% 240 ML IV PRN (04:40)
[2024-04-03] MEDS: SODIUM BICARBONATE 8.4% 50MEQ/50ML SYR IV NR (04:51)
[2024-04-03 05:01] LABS: BG BASE EXCESS -9.6 mmol/L (-2.0-3.0); BG CARBOXYHEMOGLOBIN 0.4 % (0.5-1.5); BG DEOXYHEMOGLOBIN 8.1 % (0.0-5.0); BG FRACTION INSPIRED OXYGEN 45; BG METHEMOGLOBIN 0.3 % (0.5-1.5); BG OXYGEN SATURATION 91.8 % (94.0-98.0); BG OXYHEMOGLOBIN 91.2 % (94.0-98.0); BG PCO2 97.5 mmHg (35.0-48.0); BG PO2 71.7 mmHg (83.0-108.0); BG SAMPLE SITE RIGHT BRACHIAL; BG TOTAL HEMOGLOBIN 10.7 g/dL (13.5-17.5); BG TOTAL RESPIRATORY RATE 33 b/min
[2024-04-03] MEDS ORDERED: SODIUM BICARBONATE 150 MEQ in DEXTROSE 5% WATER 850 ML IV SCH (05:15)
[2024-04-03 05:44] LABS: HEMATOCRIT. 25.2 % (42.0-52.0); HEMOGLOBIN. 7.6 g/dL (14.0-18.0); MEAN CORPUSCULAR HEMOGLOBIN 30.4 pg (28.0-32.0); MEAN CORPUSCULAR HGB CONC 30.4 g/dL (31.0-37.0); MEAN CORPUSCULAR VOLUME 100.1 fL (80.0-94.0); MEAN PLATELET VOLUME 8.9 fl (7.4-10.4); RED BLOOD CELL COUNT 2.51 mill/uL (4.7-6.1); RED CELL DISTRIBUTION WIDTH 17.4 % (11.6-14.6); WHITE BLOOD COUNT 12.1 x1000/uL (4.5-11.0)
[2024-04-03] MEDS: METOCLOPRAMIDE HCL 10MG/2ML VIAL IV SCH (05:47)
[2024-04-03] MEDS: SODIUM BICARBONATE 150 MEQ in DEXTROSE 5% WATER 850 ML IV SCH (05:50)
[2024-04-03 05:58] LABS: DIFFERENTIAL COMMENT 1; PLATELET 4 x1000/uL (130-400)
[2024-04-03 05:59] LABS: AMMONIA 98 uMol/L (<32)
[2024-04-03 06:28] LABS: CARBON DIOXIDE 23 mEq/L (21-32); CHLORIDE 99 mEq/L (98-107); POTASSIUM 5.2 mEq/L (3.5-5.1); SODIUM 137 mEq/L (136-145)
[2024-04-03 06:33] LABS: CREATININE 3.2 mg/dL (0.6-1.3)
[2024-04-03 06:34] LABS: GLUCOSE 379 mg/dL (70-105); UREA NITROGEN BLOOD 76 mg/dL (9-23)
[2024-04-03 06:36] LABS: PHOSPHORUS 6.4 mg/dL (2.5-4.9)
[2024-04-03] MEDS ORDERED: PHYTONADIONE 10MG/ML INJ SUBCUT SCH (09:00)
[2024-04-03] MEDS ORDERED: MORPHINE SULFATE 250 MG in DEXT 5% WATER 225 ML IV PRN (09:30)
[2024-04-03 12:05] LABS: ATYPICAL LYMPHOCYTES 1; NUCLEATED RED BLOOD CELLS 2 /100 WBC
[2024-04-03 12:06] LABS: ANISOCYTOSIS 1+; PLATELET ESTIMATE MARKEDLY DECREASED
[2024-04-05 09:07] LABS: MYCOPLASMA PNEUMONIAE IGM < 770 U/mL (0-769)
== END 2024-04-03 14:41 | DRG 871 ==
LOC: ER 02:49 → EDBEDREQ 03:54 → MICUNO 09:56
PROVIDERS: ADMIT Internal Medicine Nephrology; ATTEND Internal Medicine Nephrology
PROC: 5A1945Z Respiratory Ventilation, 24-96 Consecutive Hours (ICD-10-PCS; principal; 2024-03-31)
PROC: 0BH17EZ Insertion of Endotracheal Airway into Trachea, Via Natural or Artificial Opening (ICD-10-PCS; 2024-03-31)
DX: A41.89 Other specified sepsis (principal); I21.A1 Myocardial infarction type 2; N17.0 Acute kidney failure with tubular necrosis; J69.0 Pneumonitis due to inhalation of food and vomit; J96.01 Acute respiratory failure with hypoxia; J18.0 Bronchopneumonia, unspecified organism; R65.21 Severe sepsis with septic shock; E87.0 Hyperosmolality and hypernatremia; I13.0 Hypertensive heart and chronic kidney disease with heart failure and stage 1 through stage 4 chronic kidney disease, or unspecified chronic kidney disease; D61.818 Other pancytopenia; N39.0 Urinary tract infection, site not specified; D68.9 Coagulation defect, unspecified; E87.29 Other acidosis; F03.94 Unspecified dementia, unspecified severity, with anxiety; G93.40 Encephalopathy, unspecified; I50.32 Chronic diastolic (congestive) heart failure; Z68.1 Body mass index [BMI] 19.9 or less, adult; Z20.822 Contact with and (suspected) exposure to COVID-19; N18.9 Chronic kidney disease, unspecified; E11.22 Type 2 diabetes mellitus with diabetic chronic kidney disease; E88.09 Other disorders of plasma-protein metabolism, not elsewhere classified; K57.30 Diverticulosis of large intestine without perforation or abscess without bleeding; I25.10 Atherosclerotic heart disease of native coronary artery without angina pectoris; G70.00 Myasthenia gravis without (acute) exacerbation; D53.9 Nutritional anemia, unspecified; E11.649 Type 2 diabetes mellitus with hypoglycemia without coma; Z74.01 Bed confinement status; M81.0 Age-related osteoporosis without current pathological fracture; K21.9 Gastro-esophageal reflux disease without esophagitis; J45.909 Unspecified asthma, uncomplicated; N40.0 Benign prostatic hyperplasia without lower urinary tract symptoms; K74.60 Unspecified cirrhosis of liver; S90.32XA Contusion of left foot, initial encounter; S90.31XA Contusion of right foot, initial encounter; X58.XXXA Exposure to other specified factors, initial encounter; E86.1 Hypovolemia; R62.7 Adult failure to thrive; Z66 Do not resuscitate; Y95 Nosocomial condition; Z79.84 Long term (current) use of oral hypoglycemic drugs; Z79.899 Other long term (current) drug therapy; I25.2 Old myocardial infarction; Z88.0 Allergy status to penicillin; Z82.49 Family history of ischemic heart disease and other diseases of the circulatory system; Z93.1 Gastrostomy status; Y93.89 Activity, other specified; Y92.89 Other specified places as the place of occurrence of the external cause; Y99.8 Other external cause status; Z51.5 Encounter for palliative care
CPT/HCPCS: 31500; 36415; 36600; 71045; 74018; 74176; 80048; 80053; 80076; 80202; 81003; 82140; 82375; 82607; 82728; 82746; 82805; 82947; 82962; 83036; 83540; 83550; 83605; 83735; 84100; 84145; 84443; 84478; 84484; 85025; 85044; 86738; 87077; 87186; 87426; 87804; 93005; 93306; 93970; 94003; 94640; 99291; J0282; J0456; J1720; J1940; J2405; J2765; J3010; J3370; J3475; J3490; J7030; J7050; J7060; J7070; J7121; J7608